=== PATIENT | male | born 1945 | race Caucasian/White ===

== ENCOUNTER 2016-11-24 13:24 | Inpatient (IN) | payer MEDICARE ==
[~2016-11-24] VITALS: Ht 182.9 cm; Wt 88.9 kg
[~2016-11-24 13:24] MED LIST: ASPI-770 PO; ASPI1CPM9 PO; CHOL400D3 PO; DIAZ10TA PO; DIAZ10TA4 PO; DIAZ5TAB4 PO; DOCU-30 PO; DOXY100T PO; ERGO500017 PO; ETOD400T PO; FURO-93 PO; LEVO500T33 PO; LEVO750T6 PO; METH750T2 PO; METR500T PO; MORP30TA81 PO; MULT-26 PO; NICO1PAT10 TD; ONDA8TAB12 PO; OXYC-302 PO; OXYC10TA32 PO; OXYC10TA6 PO; OXYC5CAP4 PO; POLY17PO5 PO; POTA20TA91 PO; POTASSIUM PO; PRED20TA PO; PREG150C PO; PREG300C PO; PREG75CA PO; QUET25TA PO; RIVA15TA PO; RIVA20TA PO; SENN-109 PO; SENN1TAB7 PO; SERT50TA5 PO; TAMS-11 PO; TRAZ100T15 PO; WARF7.5T PO
[2016-11-24] MEDS ORDERED: POTA20TA91 PO (13:42)
[2016-11-24] MEDS ORDERED: DIAZ10TA4 PO (13:42)
[2016-11-24] MEDS ORDERED: DIPHENHYDRAMINE 50 MG/ML, 1ML ONE (13:50)
[2016-11-24] MEDS ORDERED: NITROGLYCERIN SINGLE TAB 0.4 MG SL ONE (13:50)
[2016-11-24] MEDS: NITROGLYCERIN SINGLE TAB 0.4 MG SL PRN (13:52)
[2016-11-24] MEDS ORDERED: SODIUM CHLORIDE FLUSH 10ML SYR IVF ONE (14:00)
[2016-11-24] MEDS ORDERED: SODIUM CHLORIDE 0.9% 1,000ML IVBOLUS ONE (14:00)
[2016-11-24] MEDS ORDERED: DIPHENHYDRAMINE 50 MG/ML, 1ML IVPush ONE (14:00)
[2016-11-24 14:22] LABS: BLOOD UREA NITROGEN 17 mg/dL (7-18)
[2016-11-24 14:28] LABS: ASPARTATE AMINO TRANSFERASE 9 U/L (15-37)
[2016-11-24 14:30] LABS: IS PT STATUS REG ER OR PRE ER? YES
[2016-11-24] MEDS ORDERED: MORPHINE SULFATE 4 MG/ML, 1ML ONE ×2 (14:31→15:16)
[2016-11-24] MEDS: MORPHINE SULFATE 4 MG/ML, 1ML IVPush PRN ×2 (14:33→15:19)
[2016-11-24] MEDS ORDERED: METOCLOPRAMIDE 5 MG/ML, 2ML ONE (15:16)
[2016-11-24] MEDS ORDERED: morphine SULFATE 10 MG/ML, 1ML IVPush ONE (15:30)
[2016-11-24] MEDS ORDERED: METOCLOPRAMIDE 5 MG/ML, 2ML IVPush ONE (15:30)
[2016-11-24] MEDS ORDERED: ONDANSETRON 2MG/ML, 2ML IVPush PRN (16:30)
[2016-11-24] MEDS ORDERED: morphine SULFATE 10 MG/ML, 1ML IVPush PRN (16:30)
[2016-11-24] MEDS ORDERED: ACETAMINOPHEN 325 MG TABLET PO PRN (16:30)
[2016-11-24] MEDS ORDERED: TEMAZEPAM 15 MG CAPSULE PO PRN (16:30)
[2016-11-24] MEDS ORDERED: ENALAPRILAT 1.25 MG/ML, 2ML IVPush PRN (16:30)
[2016-11-24 17:27] VITALS: BP 114/83
[2016-11-24 17:30] VITALS: BP 114/83
[2016-11-24] MEDS: HYDROcodone/APAP 5/325 TABLET PO PRN (18:09)
[2016-11-24] MEDS: ENOXAPARIN 40 MG/0.4 ML SQ SCH (18:45)
[2016-11-24 20:06] VITALS: BP 94/63
[2016-11-24 20:27] VITALS: BP 97/61
[2016-11-24 22:24] LABS: IS PT STATUS REG ER OR PRE ER? NO
[2016-11-25] VITALS (8 sets, daily range): BP systolic 90–108; BP diastolic 55–71
[2016-11-25] MEDS: ASPIRIN 325 MG TABLET EC PO SCH (05:45)
[2016-11-25 06:20] LABS: IS PT STATUS REG ER OR PRE ER? NO
[2016-11-25] MEDS ORDERED: NITROGLYCERIN 0.4 MG BOTTLE (25 TABS) SL ONE (07:39)
[2016-11-25] MEDS: NITROGLYCERIN SINGLE TAB 0.4 MG SL PRN (07:51)
[2016-11-25] MEDS: HYDROcodone/APAP 5/325 TABLET PO PRN ×2 (07:55→21:01)
[2016-11-25] MEDS: FUROSEMIDE 20 MG TABLET PO SCH (07:59)
[2016-11-25] MEDS: POTASSIUM CHLORIDE 20 MEQ TAB.ER.PRT PO SCH (07:59)
[2016-11-25] MEDS: PREGABALIN 150 MG CAPSULE PO SCH ×2 (11:28→21:00)
[2016-11-25] MEDS ORDERED: DIAZEPAM 5 MG TABLET ONE (12:01)
[2016-11-25] MEDS: DIAZEPAM 10 MG TABLET PO SCH (12:04)
[2016-11-25] MEDS: OXYcodone/APAP 5/325MG TABLET PO PRN ×2 (13:21→17:40)
[2016-11-25] MEDS: ENOXAPARIN 40 MG/0.4 ML SQ SCH (17:39)
[2016-11-26] VITALS (8 sets, daily range): BP systolic 93–131; BP diastolic 55–72
[2016-11-26] MEDS: ASPIRIN 325 MG TABLET EC PO SCH (06:19)
[2016-11-26] MEDS ORDERED: REGADENOSON 0.4 MG/5 ML SYRINGE ONE (08:36)
[2016-11-26] MEDS ORDERED: DIAZEPAM 5 MG TABLET ONE (10:06)
[2016-11-26] MEDS: PREGABALIN 150 MG CAPSULE PO SCH ×2 (10:09→21:43)
[2016-11-26] MEDS: FUROSEMIDE 20 MG TABLET PO SCH (10:09)
[2016-11-26] MEDS: POTASSIUM CHLORIDE 20 MEQ TAB.ER.PRT PO SCH (10:09)
[2016-11-26] MEDS: DIAZEPAM 10 MG TABLET PO SCH (10:10)
[2016-11-26] MEDS: OXYcodone/APAP 5/325MG TABLET PO PRN ×2 (11:49→19:43)
[2016-11-26] MEDS ORDERED: DIAZEPAM 5 MG TABLET PO PRN (17:00)
[2016-11-26] MEDS: ENOXAPARIN 40 MG/0.4 ML SQ SCH (17:09)
[2016-11-26] MEDS: DIAZEPAM 5 MG TABLET PO PRN ×2 (17:09→23:16)
[2016-11-27 03:24] VITALS: BP 122/73
[2016-11-27] MEDS: OXYcodone/APAP 5/325MG TABLET PO PRN ×3 (03:25→12:38)
[2016-11-27] MEDS: ASPIRIN 325 MG TABLET EC PO SCH (05:45)
[2016-11-27 07:13] VITALS: BP 90/58
[2016-11-27] MEDS ORDERED: TRAM50TA2 PO (07:28)
[2016-11-27] MEDS ORDERED: SERT50TA5 PO (07:28)
[2016-11-27] MEDS ORDERED: DIAZ5TAB PO (07:28)
[2016-11-27] MEDS ORDERED: SIMV20TA PO (07:42)
[2016-11-27] MEDS ORDERED: ASPI-515 PO (07:42)
[2016-11-27] MEDS: PREGABALIN 150 MG CAPSULE PO SCH (08:36)
[2016-11-27] MEDS: POTASSIUM CHLORIDE 20 MEQ TAB.ER.PRT PO SCH (08:36)
[2016-11-27] MEDS: FUROSEMIDE 20 MG TABLET PO SCH (08:37)
[2016-11-27] MEDS ORDERED: DIAZEPAM 5 MG TABLET PO SCH (09:00)
[2016-11-27] MEDS ORDERED: SERTRALINE 50MG TABLET PO SCH (09:00)
[2016-11-27] MEDS: DIAZEPAM 5 MG TABLET PO PRN (13:41)
[2016-12-01] MEDS ORDERED: ERGOCALCIFEROL 50,000 UNIT CAPSULE PO SCH (09:00)
== END 2016-11-27 14:07 | DRG 880 ==
LOC: ED 15:11 → EDIP 15:21 → SUATTDRO 16:02 → 5SO 16:50
PROVIDERS: ATTEND Internal Medicine
DX: F41.9 Anxiety disorder, unspecified (principal); I50.32 Chronic diastolic (congestive) heart failure; E11.42 Type 2 diabetes mellitus with diabetic polyneuropathy; I25.10 Atherosclerotic heart disease of native coronary artery without angina pectoris; F43.10 Post-traumatic stress disorder, unspecified; F32.9 Major depressive disorder, single episode, unspecified; G89.29 Other chronic pain; G40.909 Epilepsy, unspecified, not intractable, without status epilepticus; I11.0 Hypertensive heart disease with heart failure; J44.9 Chronic obstructive pulmonary disease, unspecified; Z86.711 Personal history of pulmonary embolism; Z86.73 Personal history of transient ischemic attack (TIA), and cerebral infarction without residual deficits; Z87.891 Personal history of nicotine dependence; I25.2 Old myocardial infarction; Z90.49 Acquired absence of other specified parts of digestive tract; Z87.01 Personal history of pneumonia (recurrent)
CPT/HCPCS: 36415; 71010; 78452; 80053; 83735; 83880; 84484; 85025; 85379; 85610; 85730; 93005; 93017; 96361; 96374; 96375; 96376; J1650; J2785; A9502; C9898; J1200; J2270; J2765; J7030

== ENCOUNTER 2017-02-24 13:05 | Inpatient (IN) | payer MEDICARE ==
[~2017-02-24] VITALS: Ht 180.3 cm; Wt 96.3 kg
[~2017-02-24 13:05] MED LIST changes: +ASPI-515 PO; +DIAZ5TAB PO; +DOCU-131 PO; -DOCU-30 PO; -LEVO500T33 PO; +LEVO500T47 PO; -OXYC10TA32 PO; +OXYC10TA47 PO; +OXYC5CAP2 PO; -OXYC5CAP4 PO; -SENN-109 PO; +SENN-99 PO; +SIMV20TA PO; +TRAM50TA2 PO
[2017-02-24] MEDS ORDERED: ACETAMINOPHEN 325 MG TABLET PO ONE (13:30)
[2017-02-24] MEDS ORDERED: SODIUM CHLORIDE FLUSH 10ML SYR IVF ONE (13:30)
[2017-02-24] MEDS ORDERED: VANCOMYCIN 1,600 MG in SODIUM CHLORIDE 0.9% 250 ML IV ONE (13:30)
[2017-02-24] MEDS ORDERED: SODIUM CHLORIDE 0.9% 1,000ML IVBOLUS ONE ×2 (13:30→14:30)
[2017-02-24] MEDS ORDERED: PHARMACOKINETIC CONSULTATION MC ONE (13:30)
[2017-02-24] MEDS ORDERED: CEFTRIAXONE PMX 1GM/50ML 50 ML IV ONE (13:30)
[2017-02-24] MEDS ORDERED: VANCOMYCIN PER PHARMACY MC ONE (13:30)
[2017-02-24 13:43] LABS: HEMATOCRIT 43.8 % (39.2-51.8); HEMOGLOBIN 14.6 g/dL (13.7-18.0)
[2017-02-24] MEDS ORDERED: ACETAMINOPHEN 325 MG TABLET ONE (13:46)
[2017-02-24 13:50] LABS: BLOOD UREA NITROGEN 45 mg/dL (7-18)
[2017-02-24 13:53] LABS: ASPARTATE AMINO TRANSFERASE 220 U/L (15-37)
[2017-02-24 13:55] LABS: ABG COLLECTION SITE RIGHT BRACHIAL
[2017-02-24] MEDS ORDERED: DIVA250T4 PO (14:14)
[2017-02-24] MEDS ORDERED: CEFTRIAXONE PMX 1GM/50ML 50 ML ONE (14:24)
[2017-02-24] MEDS ORDERED: NALOXONE 0.4 MG/ML, 1ML ONE (14:41)
[2017-02-24] MEDS ORDERED: NALOXONE 0.4 MG/ML, 1ML IVPush ONE ×3 (15:00→15:30)
[2017-02-24 15:24] LABS: ABG COLLECTION SITE RIGHT BRACHIAL
[2017-02-24] MEDS: CEFTRIAXONE PMX 1GM/50ML 50 ML IV SCH (15:30)
[2017-02-24] MEDS ORDERED: ONDANSETRON 2MG/ML, 2ML IVPush ONE (15:30)
[2017-02-24] MEDS ORDERED: LORazepam 1MG TABLET PO PRN (15:30)
[2017-02-24] MEDS ORDERED: POLYETHYLENE GLYCOL 17 GM PACKET PO PRN (15:30)
[2017-02-24] MEDS ORDERED: TEMAZEPAM 15 MG CAPSULE PO PRN (15:30)
[2017-02-24] MEDS ORDERED: ACETAMINOPHEN 325 MG TABLET PO PRN (15:30)
[2017-02-24] MEDS: SODIUM CHLORIDE 0.9% 1,000 ML IV SCH (15:57)
[2017-02-24] MEDS: HEPARIN 5,000 UNITS/ML, 1ML SQ SCH (17:16)
[2017-02-24] MEDS: AZITHROMYCIN 500 MG in SODIUM CHLORIDE 0.9% 250 ML IV SCH (17:17)
[2017-02-24 18:30] LABS: ABG COLLECTION SITE LEFT BRACHIAL
[2017-02-24] MEDS ORDERED: SODIUM CHLORIDE 0.9%, 500ML IVBOLUS ONE (19:00)
[2017-02-24] MEDS: ALBUTEROL/IPRATROPIUM 2.5MG/0.5MG, 3 ML INLINE SCH (20:30)
[2017-02-24] MEDS ORDERED: LIDOCAINE-MPF 1%, 2ML ENDO PRN (20:30)
[2017-02-25] MEDS: HEPARIN 5,000 UNITS/ML, 1ML SQ SCH ×4 (00:15→22:07)
[2017-02-25] MEDS: FAMOTIDINE 20 MG TABLET PO SCH ×3 (00:17→22:06)
[2017-02-25] MEDS: SODIUM CHLORIDE 0.9% 1,000 ML IV SCH ×3 (00:18→22:06)
[2017-02-25] MEDS: NOREPINEPHRINE 4 MG in SODIUM CHLORIDE 0.9% 246 ML IV PRN ×3 (00:19→09:22)
[2017-02-25] MEDS: PROPOFOL 100 ML IV PRN ×3 (00:20→14:29)
[2017-02-25] MEDS: ALBUTEROL/IPRATROPIUM 2.5MG/0.5MG, 3 ML INLINE SCH ×7 (00:30→22:08)
[2017-02-25 04:10] VITALS: BP 83/51
[2017-02-25 04:10] LABS: ABG COLLECTION SITE RIGHT RADIAL; COLLATERAL CIRCULATION TESTING NORMAL
[2017-02-25 04:45] LABS: HEMATOCRIT 38.3 % (39.2-51.8); HEMOGLOBIN 12.7 g/dL (13.7-18.0); WHITE BLOOD COUNT 8.3 x10^3/uL (3.4-10)
[2017-02-25 05:25] LABS: ASPARTATE AMINO TRANSFERASE 421 U/L (15-37); BLOOD UREA NITROGEN 28 mg/dL (7-18)
[2017-02-25] MEDS: ASPIRIN 325 MG TABLET PO SCH (06:09)
[2017-02-25] MEDS: SENNA/DOCUSATE TABLET PO SCH (09:22)
[2017-02-25] MEDS: CEFTRIAXONE PMX 1GM/50ML 50 ML IV SCH (15:26)
[2017-02-25] MEDS ORDERED: NOREPINEPHRINE 8 MG in SODIUM CHLORIDE 0.9% 242 ML IV PRN (16:00)
[2017-02-25] MEDS ORDERED: SODIUM CHLORIDE 0.9% 500 ML IV ONE (16:30)
[2017-02-25] MEDS: AZITHROMYCIN 500 MG in SODIUM CHLORIDE 0.9% 250 ML IV SCH (17:11)
[2017-02-25] MEDS: HYDROCORTISONE 100 MG INJ. IVPush SCH (22:07)
[2017-02-25 23:23] VITALS: BP 92/48
[2017-02-26] MEDS: ALBUTEROL/IPRATROPIUM 2.5MG/0.5MG, 3 ML INLINE SCH ×2 (02:07→06:45)
[2017-02-26 04:27] LABS: ABG COLLECTION SITE LEFT BRACHIAL
[2017-02-26] MEDS: HYDROCORTISONE 100 MG INJ. IVPush SCH ×2 (05:59→14:21)
[2017-02-26] MEDS: SODIUM CHLORIDE 0.9% 1,000 ML IV SCH (06:00)
[2017-02-26] MEDS: ASPIRIN 325 MG TABLET PO SCH (06:00)
[2017-02-26 06:23] LABS: HEMATOCRIT 35.1 % (39.2-51.8); HEMOGLOBIN 11.8 g/dL (13.7-18.0); WHITE BLOOD COUNT 6.7 x10^3/uL (3.4-10)
[2017-02-26 06:38] LABS: ASPARTATE AMINO TRANSFERASE 263 U/L (15-37); BLOOD UREA NITROGEN 13 mg/dL (7-18)
[2017-02-26] MEDS: HEPARIN 5,000 UNITS/ML, 1ML SQ SCH ×3 (07:50→23:44)
[2017-02-26] MEDS: SENNA/DOCUSATE TABLET PO SCH (10:35)
[2017-02-26] MEDS: FAMOTIDINE 20 MG TABLET PO SCH ×2 (10:35→20:45)
[2017-02-26] MEDS: CEFTRIAXONE PMX 1GM/50ML 50 ML IV SCH (14:21)
[2017-02-26] MEDS ORDERED: SODIUM CHLORIDE 0.9% 1,000 ML IV SCH (16:00)
[2017-02-26] MEDS: AZITHROMYCIN 500 MG in SODIUM CHLORIDE 0.9% 250 ML IV SCH (16:05)
[2017-02-26] MEDS: OXYcodone IR 5MG TABLET PO PRN (20:43)
[2017-02-27] MEDS ORDERED: HYDROCORTISONE 100 MG INJ. IVPush SCH (02:00)
[2017-02-27] MEDS ORDERED: ALUMINUM/MAG/SIMETHICONE 30 ML UDC PO PRN (02:00)
[2017-02-27] MEDS: OXYcodone IR 5MG TABLET PO PRN ×5 (03:01→21:51)
[2017-02-27 04:13] VITALS: BP 106/49
[2017-02-27 04:18] LABS: HEMATOCRIT 35.2 % (39.2-51.8); HEMOGLOBIN 11.8 g/dL (13.7-18.0); WHITE BLOOD COUNT 7.3 x10^3/uL (3.4-10)
[2017-02-27 04:22] LABS: ABG COLLECTION SITE LEFT FEMORAL
[2017-02-27 04:26] LABS: ASPARTATE AMINO TRANSFERASE 181 U/L (15-37); BLOOD UREA NITROGEN 10 mg/dL (7-18)
[2017-02-27] MEDS: ASPIRIN 325 MG TABLET PO SCH (06:12)
[2017-02-27] MEDS ORDERED: POTASSIUM CHLORIDE 20 MEQ TAB.ER.PRT PO ONE (07:00)
[2017-02-27] MEDS: SENNA/DOCUSATE TABLET PO SCH ×2 (09:08→09:15)
[2017-02-27] MEDS: FAMOTIDINE 20 MG TABLET PO SCH ×2 (09:08→21:51)
[2017-02-27] MEDS: HEPARIN 5,000 UNITS/ML, 1ML SQ SCH ×2 (09:09→15:45)
[2017-02-27] MEDS: ONDANSETRON 2MG/ML, 2ML IVPush PRN (13:25)
[2017-02-27] MEDS: CEFTRIAXONE PMX 1GM/50ML 50 ML IV SCH (15:45)
[2017-02-27] MEDS: AZITHROMYCIN 500 MG in SODIUM CHLORIDE 0.9% 250 ML IV SCH (17:02)
[2017-02-27 20:00] VITALS: BP 117/65
[2017-02-28] MEDS: HEPARIN 5,000 UNITS/ML, 1ML SQ SCH ×3 (00:37→15:37)
[2017-02-28 02:55] VITALS: BP 114/63
[2017-02-28] MEDS: OXYcodone IR 5MG TABLET PO PRN ×3 (02:55→16:39)
[2017-02-28] MEDS: ONDANSETRON 2MG/ML, 2ML IVPush PRN ×2 (02:55→08:49)
[2017-02-28 04:51] LABS: ASPARTATE AMINO TRANSFERASE 96 U/L (15-37); BLOOD UREA NITROGEN 12 mg/dL (7-18)
[2017-02-28 04:57] LABS: HEMATOCRIT 35.4 % (39.2-51.8); HEMOGLOBIN 11.9 g/dL (13.7-18.0); WHITE BLOOD COUNT 5.1 x10^3/uL (3.4-10)
[2017-02-28] MEDS: ASPIRIN 325 MG TABLET PO SCH (06:13)
[2017-02-28 07:55] VITALS: BP 120/70
[2017-02-28] MEDS: SENNA/DOCUSATE TABLET PO SCH (09:00)
[2017-02-28] MEDS: FAMOTIDINE 20 MG TABLET PO SCH ×2 (09:01→20:31)
[2017-02-28 12:52] VITALS: BP 155/89
[2017-02-28] MEDS: CEFTRIAXONE PMX 1GM/50ML 50 ML IV SCH (15:37)
[2017-02-28 19:24] VITALS: BP 128/71
[2017-02-28] MEDS: AZITHROMYCIN 500 MG in SODIUM CHLORIDE 0.9% 250 ML IV SCH (20:31)
[2017-03-01] MEDS: HEPARIN 5,000 UNITS/ML, 1ML SQ SCH ×2 (01:01→08:37)
[2017-03-01] MEDS: OXYcodone IR 5MG TABLET PO PRN ×3 (01:08→14:54)
[2017-03-01 02:00] VITALS: BP 105/59
[2017-03-01 05:06] LABS: HEMATOCRIT 35.9 % (39.2-51.8); HEMOGLOBIN 11.9 g/dL (13.7-18.0); WHITE BLOOD COUNT 5.6 x10^3/uL (3.4-10)
[2017-03-01 05:23] LABS: BLOOD UREA NITROGEN 13 mg/dL (7-18)
[2017-03-01] MEDS: ASPIRIN 325 MG TABLET PO SCH (06:08)
[2017-03-01] MEDS ORDERED: POTASSIUM CHLORIDE 20 MEQ TAB.ER.PRT PO ONE (06:30)
[2017-03-01 07:32] VITALS: BP 118/64
[2017-03-01] MEDS: FAMOTIDINE 20 MG TABLET PO SCH (08:37)
[2017-03-01] MEDS: SENNA/DOCUSATE TABLET PO SCH (08:38)
[2017-03-01 14:00] VITALS: BP 148/77
[2017-03-01] MEDS ORDERED: AZIT250T89 PO (14:14)
[2017-03-01] MEDS ORDERED: CEFD300C37 PO (14:14)
== END 2017-03-01 15:41 | DRG 871 ==
LOC: ED 15:01 → EDIP 15:02 → ED 15:56 → CCU 16:38 → 4EST 02-28 10:52
PROVIDERS: ADMIT Internal Medicine; ATTEND Internal Medicine
PROC: 0BH17EZ Insertion of Endotracheal Airway into Trachea, Via Natural or Artificial Opening (ICD-10-PCS; principal; 2017-02-24)
PROC: 5A1945Z Respiratory Ventilation, 24-96 Consecutive Hours (ICD-10-PCS; 2017-02-24)
DX: A41.9 Sepsis, unspecified organism (principal); R65.21 Severe sepsis with septic shock; N17.0 Acute kidney failure with tubular necrosis; J96.02 Acute respiratory failure with hypercapnia; J96.01 Acute respiratory failure with hypoxia; I11.0 Hypertensive heart disease with heart failure; I50.32 Chronic diastolic (congestive) heart failure; J15.211 Pneumonia due to Methicillin susceptible Staphylococcus aureus; Z99.11 Dependence on respirator [ventilator] status; E87.2 Acidosis; E27.40 Unspecified adrenocortical insufficiency; J44.0 Chronic obstructive pulmonary disease with (acute) lower respiratory infection; E11.40 Type 2 diabetes mellitus with diabetic neuropathy, unspecified; E55.9 Vitamin D deficiency, unspecified; F10.10 Alcohol abuse, uncomplicated; F32.9 Major depressive disorder, single episode, unspecified; F41.9 Anxiety disorder, unspecified; G40.909 Epilepsy, unspecified, not intractable, without status epilepticus; G89.4 Chronic pain syndrome; I25.10 Atherosclerotic heart disease of native coronary artery without angina pectoris; I25.2 Old myocardial infarction; Z59.0 Homelessness; Z83.3 Family history of diabetes mellitus; Z86.711 Personal history of pulmonary embolism; Z86.718 Personal history of other venous thrombosis and embolism; Z86.73 Personal history of transient ischemic attack (TIA), and cerebral infarction without residual deficits; Z87.11 Personal history of peptic ulcer disease; Z98.1 Arthrodesis status; Z90.49 Acquired absence of other specified parts of digestive tract; Z90.89 Acquired absence of other organs; Z98.52 Vasectomy status; Z88.5 Allergy status to narcotic agent; Z88.6 Allergy status to analgesic agent; Z88.0 Allergy status to penicillin; Z88.8 Allergy status to other drugs, medicaments and biological substances; Z80.9 Family history of malignant neoplasm, unspecified; Z81.8 Family history of other mental and behavioral disorders
CPT/HCPCS: 36415; 36600; 71010; 76700; 80048; 80053; 80164; 81001; 82533; 82803; 82962; 83605; 83735; 83880; 84145; 84478; 85025; 85610; 85730; 87040; 87070; 87077; 87081; 87086; 87186; 87205; 87324; 93005; 94002; 94003; 94150; 94640; 94660; 96365; 96366; 96368; 96375; J0456; J0696; J1644; J2310; J2405; J2704; J3370; J7620; J1720; J7030; J7040; J7050

== ENCOUNTER 2017-05-27 20:49 | Emergency (ER) | payer MEDICARE ==
[~2017-05-27] VITALS: Ht 185.4 cm; Wt 82.0 kg
[~2017-05-27 20:49] MED LIST changes: +AZIT250T89 PO; +CEFD300C37 PO; +DIVA250T4 PO; +NICO-485 TD; -NICO1PAT10 TD
[2017-05-27 21:25] LABS: HEMATOCRIT 44.1 % (39.2-51.8); HEMOGLOBIN 14.7 g/dL (13.7-18.0); WHITE BLOOD COUNT 6.6 x10^3/uL (3.4-10)
[2017-05-27] MEDS ORDERED: ONDANSETRON 2MG/ML, 2ML IVPush ONE (21:30)
[2017-05-27] MEDS ORDERED: SODIUM CHLORIDE FLUSH 10ML SYR IVF ONE (21:30)
[2017-05-27] MEDS ORDERED: SODIUM CHLORIDE 0.9% 1,000ML IVBOLUS ONE (21:30)
[2017-05-27 21:39] LABS: ASPARTATE AMINO TRANSFERASE 13 U/L (15-37); BLOOD UREA NITROGEN 14 mg/dL (7-18)
[2017-05-27 21:45] LABS: IS PT STATUS REG ER OR PRE ER? YES
[2017-05-27] MEDS: MORPHINE SULFATE 4 MG/ML, 1ML IVPush PRN ×2 (21:45→22:26)
[2017-05-27] MEDS ORDERED: OMNIPAQUE 350 MG/ML, 100ML BOTTLE ONE (22:08)
[2017-05-27 23:44] VITALS: BP 101/54
== END 2017-05-27 23:46 | disposition home or self-care (01) ==
LOC: ED 21:25
DX: R07.89 Other chest pain (principal); J44.9 Chronic obstructive pulmonary disease, unspecified; I25.10 Atherosclerotic heart disease of native coronary artery without angina pectoris; F17.200 Nicotine dependence, unspecified, uncomplicated; I11.0 Hypertensive heart disease with heart failure; I50.9 Heart failure, unspecified; E11.9 Type 2 diabetes mellitus without complications; Z90.49 Acquired absence of other specified parts of digestive tract; Z79.82 Long term (current) use of aspirin; Z88.0 Allergy status to penicillin; Z98.1 Arthrodesis status
CPT/HCPCS: 36415; 71275; 74175; 80053; 83880; 84484; 85025; 85610; 85730; 93005; 96361; 96374; 96375; 96376; 99285; J2405; J7030; Q9967

== ENCOUNTER 2017-07-27 14:45 | Emergency (ER) | payer MEDICARE ==
[~2017-07-27] VITALS: Ht 182.9 cm; Wt 72.0 kg
[2017-07-27] MEDS ORDERED: SODIUM CHLORIDE 0.9% 1,000ML IVBOLUS ONE (15:00)
[2017-07-27] MEDS ORDERED: ONDANSETRON 2MG/ML, 2ML IVPush ONE ×2 (15:00→17:00)
[2017-07-27] MEDS ORDERED: SODIUM CHLORIDE FLUSH 10ML SYR IVF ONE (15:00)
[2017-07-27] MEDS ORDERED: MORP15TA PO (15:09)
[2017-07-27] MEDS ORDERED: ONDANSETRON 2MG/ML, 2ML ONE ×2 (15:16→16:54)
[2017-07-27] MEDS ORDERED: MORPHINE SULFATE 4 MG/ML, 1ML ONE ×2 (15:16→17:05)
[2017-07-27] MEDS: MORPHINE SULFATE 4 MG/ML, 1ML IVPush PRN ×2 (15:27→17:58)
[2017-07-27 15:28] LABS: BASOPHILS # (AUTO) 0.04 x10^3/uL (0-0.1); BASOPHILS % (AUTO) 1 % (0-1); EOSINOPHILS # (AUTO) 0.19 x10^3/uL (0-0.4); EOSINOPHILS % (AUTO) 3 % (1-7); LYMPHOCYTES # (AUTO) 2.27 x10^3/uL (1-3.4); LYMPHOCYTES % (AUTO) 31 % (22-44); MD NO; MEAN CORPUSCULAR HEMOGLOBIN 31.5 pg (27.5-34.5); MEAN CORPUSCULAR HGB CONC 33.4 g/dL (33.2-36.2); MEAN CORPUSCULAR VOLUME 94.3 fL (81-97); MEAN PLATELET VOLUME 7.8 fL (7.4-10.4); MONOCYTES % (AUTO) 10 % (2-9); NEUTROPHILS # (AUTO) 4.09 x10^3/uL (1.8-6.8); NEUTROPHILS % (AUTO) 56 % (42-75); PLATELET COUNT 229 x10^3/uL (130-400); RED CELL DISTRIBUTION WIDTH 14.1 % (9.4-14.8)
[2017-07-27 15:35] LABS: ALBUMIN 3.1 g/dL (3.4-5.0); ANION GAP 8 mmol/L (5-15); CALCIUM 8.3 mg/dL (8.5-10.1); CHLORIDE 109 mmol/L (98-107)
[2017-07-27 15:38] LABS: ALANINE AMINOTRANSFERASE 14 U/L (12-78); ALKALINE PHOSPHATASE 94 U/L (45-117); BILIRUBIN,TOTAL 0.4 mg/dL (0.2-1.0); CREATINE KINASE, TOTAL 30 U/L (39-308); CREATININE 0.81 mg/dL (0.7-1.3); TOTAL PROTEIN 6.7 g/dL (6.4-8.2)
[2017-07-27 15:40] LABS: MICROSCOPIC NOT IND
[2017-07-27 15:50] LABS: CULTURE INDICATED? NO
[2017-07-27] MEDS ORDERED: FAMOTIDINE 20 MG/2 ML ONE (16:55)
[2017-07-27] MEDS ORDERED: FAMOTIDINE 20 MG/2 ML IVP ONE (17:00)
[2017-07-27 18:00] VITALS: BP 110/64
== END 2017-07-27 19:20 | disposition home or self-care (01) ==
LOC: ED 18:40
DX: R19.7 Diarrhea, unspecified (principal); R11.2 Nausea with vomiting, unspecified; J44.9 Chronic obstructive pulmonary disease, unspecified; E11.9 Type 2 diabetes mellitus without complications; F43.10 Post-traumatic stress disorder, unspecified; I11.0 Hypertensive heart disease with heart failure; I50.9 Heart failure, unspecified; Z86.718 Personal history of other venous thrombosis and embolism; Z86.73 Personal history of transient ischemic attack (TIA), and cerebral infarction without residual deficits; I25.10 Atherosclerotic heart disease of native coronary artery without angina pectoris; Z90.49 Acquired absence of other specified parts of digestive tract; Z86.711 Personal history of pulmonary embolism
CPT/HCPCS: 36415; 80053; 81003; 82550; 83690; 85025; 96361; 96374; 96375; 96376; 99285; J2405; J7030; S0028

== ENCOUNTER 2017-08-02 23:49 | Observation (INO) | payer MEDICARE ==
[~2017-08-02] VITALS: Ht 182.9 cm; Wt 89.1 kg
[~2017-08-02 23:49] MED LIST changes: +MORP15TA PO
[2017-08-03 00:30] LABS: BASOPHILS # (AUTO) 0.07 x10^3/uL (0-0.1); BASOPHILS % (AUTO) 1 % (0-1); EOSINOPHILS % (AUTO) 2 % (1-7); LYMPHOCYTES # (AUTO) 3.51 x10^3/uL (1-3.4); LYMPHOCYTES % (AUTO) 40 % (22-44); MD NO; MEAN CORPUSCULAR HEMOGLOBIN 31.5 pg (27.5-34.5); MEAN CORPUSCULAR HGB CONC 33.6 g/dL (33.2-36.2); MEAN CORPUSCULAR VOLUME 93.8 fL (81-97); MEAN PLATELET VOLUME 7.9 fL (7.4-10.4); MONOCYTES % (AUTO) 8 % (2-9); NEUTROPHILS # (AUTO) 4.26 x10^3/uL (1.8-6.8); NEUTROPHILS % (AUTO) 49 % (42-75); PLATELET COUNT 223 x10^3/uL (130-400); RED BLOOD COUNT 4.65 x10^6/uL (4.38-5.82); RED CELL DISTRIBUTION WIDTH 15.1 % (9.4-14.8)
[2017-08-03] MEDS ORDERED: NITROGLYCERIN SINGLE TAB 0.4 MG SL PRN (00:30)
[2017-08-03] MEDS ORDERED: SODIUM CHLORIDE FLUSH 10ML SYR IVF ONE (00:30)
[2017-08-03] MEDS ORDERED: ASPIRIN 81 MG TABLET CHEW PO ONE (00:30)
[2017-08-03 00:42] LABS: ALANINE AMINOTRANSFERASE 20 U/L (12-78); ALBUMIN 3.2 g/dL (3.4-5.0); ANION GAP 8 mmol/L (5-15); CALCIUM 8.1 mg/dL (8.5-10.1); CHLORIDE 108 mmol/L (98-107); CREATININE 0.89 mg/dL (0.7-1.3)
[2017-08-03] MEDS ORDERED: NITROGLYCERIN SINGLE TAB 0.4 MG SL ONE (00:45)
[2017-08-03] MEDS ORDERED: ASPIRIN 81 MG TABLET CHEW ONE (00:45)
[2017-08-03 00:47] LABS: ALKALINE PHOSPHATASE 93 U/L (45-117); BILIRUBIN,TOTAL 0.3 mg/dL (0.2-1.0); TOTAL PROTEIN 6.8 g/dL (6.4-8.2); TROPONIN I < 0.015 ng/mL (0.000-0.045)
[2017-08-03 02:15] VITALS: BP 134/89
[2017-08-03] MEDS ORDERED: ENALAPRILAT 1.25 MG/ML, 2ML IVPush PRN (03:00)
[2017-08-03] MEDS ORDERED: BISACODYL 10 MG SUPP PR PRN (03:00)
[2017-08-03] MEDS ORDERED: POLYETHYLENE GLYCOL 17 GM PACKET PO PRN (03:00)
[2017-08-03] MEDS ORDERED: ONDANSETRON 2MG/ML, 2ML IVPush PRN (03:00)
[2017-08-03] MEDS ORDERED: morphine SULFATE 10 MG/ML, 1ML IVPush PRN (03:00)
[2017-08-03] MEDS ORDERED: hydrALAzine 20 MG/ML, 1ML IVPush PRN (03:00)
[2017-08-03] MEDS: OXYcodone/APAP 5/325MG TABLET PO PRN ×3 (03:32→11:05)
[2017-08-03] MEDS: NICOTINE 7 MG/24 HR PATCH.TD24 TD SCH (03:32)
[2017-08-03] MEDS: HEPARIN 5,000 UNITS/ML, 1ML SQ SCH ×3 (03:33→20:32)
[2017-08-03 03:40] LABS: CULTURE INDICATED? NO; MICROSCOPIC NOT IND
[2017-08-03] MEDS ORDERED: OMNIPAQUE 350 MG/ML, 100ML BOTTLE ONE (04:44)
[2017-08-03] MEDS ORDERED: LORazepam 1MG TABLET PO PRN (05:30)
[2017-08-03 07:33] LABS: HEMOGLOBIN A1C 5.9 % (4.2-6.3); TROPONIN I < 0.015 ng/mL (0.000-0.045)
[2017-08-03 07:40] LABS: FREE T4 (FREE THYROXINE) 1.09 ng/dL (0.76-1.46); THYROID STIMULATING HORMONE 1.9 mIU/L (0.358-3.740)
[2017-08-03 08:26] VITALS: BP 90/50
[2017-08-03] MEDS ORDERED: ASPI1CPM9 PO (08:28)
[2017-08-03] MEDS ORDERED: FURO40TA6 PO (08:28)
[2017-08-03] MEDS: POTASSIUM CHLORIDE 20 MEQ TAB.ER.PRT PO SCH (08:31)
[2017-08-03] MEDS: SENNA/DOCUSATE TABLET PO SCH (08:31)
[2017-08-03] MEDS: PREGABALIN 150 MG CAPSULE PO SCH ×2 (08:31→20:32)
[2017-08-03] MEDS: FLUTICASONE/VILANTEROL 100-25MCG/INH INH SCH (08:32)
[2017-08-03] MEDS ORDERED: FAMOTIDINE 20 MG/2 ML IVPush SCH (09:00)
[2017-08-03] MEDS ORDERED: morphine SULFATE 15 MG TAB.IR PO SCH (09:00)
[2017-08-03] MEDS: FAMOTIDINE 20 MG TABLET PO SCH ×2 (11:52→20:32)
[2017-08-03 12:50] LABS: TROPONIN I < 0.015 ng/mL (0.000-0.045)
[2017-08-03 12:54] VITALS: BP 93/60
[2017-08-03 13:27] VITALS: BP 106/69
[2017-08-03] MEDS: ACETAMINOPHEN 325 MG TABLET PO PRN (15:40)
[2017-08-03 20:39] VITALS: BP 107/69
[2017-08-04] MEDS: ACETAMINOPHEN 325 MG TABLET PO PRN (02:38)
[2017-08-04] MEDS: NICOTINE 7 MG/24 HR PATCH.TD24 TD SCH (02:40)
[2017-08-04 02:42] VITALS: BP 95/58
[2017-08-04] MEDS: HEPARIN 5,000 UNITS/ML, 1ML SQ SCH ×2 (04:45→13:19)
[2017-08-04 05:49] LABS: CHLORIDE 103 mmol/L (98-107)
[2017-08-04 05:50] LABS: BASOPHILS # (AUTO) 0.07 x10^3/uL (0-0.1); BASOPHILS % (AUTO) 1 % (0-1); EOSINOPHILS # (AUTO) 0.23 x10^3/uL (0-0.4); EOSINOPHILS % (AUTO) 3 % (1-7); LYMPHOCYTES # (AUTO) 3.74 x10^3/uL (1-3.4); LYMPHOCYTES % (AUTO) 50 % (22-44); MD NO; MEAN CORPUSCULAR HEMOGLOBIN 31.8 pg (27.5-34.5); MEAN CORPUSCULAR HGB CONC 33.7 g/dL (33.2-36.2); MEAN CORPUSCULAR VOLUME 94.3 fL (81-97); MONOCYTES # (AUTO) 0.64 x10^3/uL (0.2-0.8); MONOCYTES % (AUTO) 9 % (2-9); NEUTROPHILS # (AUTO) 2.83 x10^3/uL (1.8-6.8); NEUTROPHILS % (AUTO) 38 % (42-75); PLATELET COUNT 223 x10^3/uL (130-400); RED BLOOD COUNT 4.47 x10^6/uL (4.38-5.82); RED CELL DISTRIBUTION WIDTH 14.3 % (9.4-14.8)
[2017-08-04 06:02] LABS: ALANINE AMINOTRANSFERASE 18 U/L (12-78); ALBUMIN 3.2 g/dL (3.4-5.0); ALKALINE PHOSPHATASE 85 U/L (45-117); ANION GAP 8 mmol/L (5-15); BILIRUBIN,TOTAL 0.4 mg/dL (0.2-1.0); CALCIUM 8.2 mg/dL (8.5-10.1); CHOL/HDL RATIO 3.6; CHOLESTEROL, TOTAL 161 mg/dL (140-239); CREATININE 1.01 mg/dL (0.7-1.3); HDL CHOL % 28 % (26-37); HDL CHOLESTEROL (DIRECT) 45 mg/dL (40-60); LDL CHOLESTEROL,CALCULATED 80 mg/dL (54-169); LDL/HDL RATIO 1.8 (0.5-3.0); TOTAL PROTEIN 6.6 g/dL (6.4-8.2); TRIGLYCERIDES 178 mg/dL (50-200); VLDL CHOLESTEROL 36 mg/dL (0-25)
[2017-08-04 08:28] VITALS: BP 103/67
[2017-08-04] MEDS ORDERED: morphine SULFATE 15 MG TAB.IR PO SCH (09:00)
[2017-08-04] MEDS ORDERED: ASPIRIN/DIPYRIDAMOLE 25MG/200MG CAPSULE PO SCH (09:00)
[2017-08-04] MEDS: PREGABALIN 150 MG CAPSULE PO SCH (09:08)
[2017-08-04] MEDS: FAMOTIDINE 20 MG TABLET PO SCH (09:09)
[2017-08-04] MEDS: POTASSIUM CHLORIDE 20 MEQ TAB.ER.PRT PO SCH (09:09)
[2017-08-04] MEDS: FLUTICASONE/VILANTEROL 100-25MCG/INH INH SCH (09:10)
[2017-08-04] MEDS: SENNA/DOCUSATE TABLET PO SCH (09:12)
[2017-08-04 15:18] VITALS: BP 97/62
[2017-08-04] MEDS ORDERED: ASPI1CPM9 PO (16:18)
[2017-08-04] MEDS ORDERED: POTA20TA91 PO (16:18)
[2017-08-04] MEDS ORDERED: FURO40TA6 PO (16:18)
== END 2017-08-04 17:21 | disposition home or self-care (01) ==
LOC: ED 08-03 00:57 → INTOOBSV 08-03 01:17 → EDIP 08-03 01:17 → 5SO 08-03 02:13 → DCLOUNGE 08-04 17:19
PROVIDERS: ADMIT Internal Medicine; ATTEND Internal Medicine
DX: R07.89 Other chest pain (principal); E44.0 Moderate protein-calorie malnutrition; I50.32 Chronic diastolic (congestive) heart failure; E11.40 Type 2 diabetes mellitus with diabetic neuropathy, unspecified; G89.29 Other chronic pain; M79.606 Pain in leg, unspecified; M54.9 Dorsalgia, unspecified; F41.9 Anxiety disorder, unspecified; F32.9 Major depressive disorder, single episode, unspecified; F17.210 Nicotine dependence, cigarettes, uncomplicated; G40.909 Epilepsy, unspecified, not intractable, without status epilepticus; Z86.73 Personal history of transient ischemic attack (TIA), and cerebral infarction without residual deficits; Z86.718 Personal history of other venous thrombosis and embolism; Z86.711 Personal history of pulmonary embolism
CPT/HCPCS: 36415; 71045; 71275; 80053; 80061; 81003; 83036; 83735; 84439; 84443; 84484; 85025; 93005; 93306; 96372; 99285; G0378; J1644; Q9967

== ENCOUNTER 2017-09-04 16:50 | Inpatient (IN) | payer MEDICARE, OTHER ==
[~2017-09-04] VITALS: Ht 180.3 cm; Wt 89.8 kg
[~2017-09-04 16:50] MED LIST changes: +FURO40TA6 PO
[2017-09-04] MEDS ORDERED: METHOCARBAMOL 1,000 MG in DEXTROSE 5% 100 ML IV ONE (17:30)
[2017-09-04] MEDS ORDERED: SODIUM CHLORIDE FLUSH 10ML SYR IVF ONE (17:30)
[2017-09-04 17:58] LABS: ALANINE AMINOTRANSFERASE 14 U/L (12-78); ALBUMIN 3.3 g/dL (3.4-5.0); ANION GAP 9 mmol/L (5-15); CALCIUM 8.7 mg/dL (8.5-10.1); CHLORIDE 112 mmol/L (98-107); CREATININE 0.89 mg/dL (0.7-1.3)
[2017-09-04 17:59] LABS: BASOPHILS # (AUTO) 0.04 x10^3/uL (0-0.1); BASOPHILS % (AUTO) 1 % (0-1); EOSINOPHILS # (AUTO) 0.08 x10^3/uL (0-0.4); EOSINOPHILS % (AUTO) 1 % (1-7); LYMPHOCYTES # (AUTO) 2.29 x10^3/uL (1-3.4); LYMPHOCYTES % (AUTO) 25 % (22-44); MD NO; MEAN CORPUSCULAR VOLUME 93.7 fL (81-97); MEAN PLATELET VOLUME 7.6 fL (7.4-10.4); MONOCYTES # (AUTO) 0.79 x10^3/uL (0.2-0.8); MONOCYTES % (AUTO) 9 % (2-9); NEUTROPHILS # (AUTO) 6.04 x10^3/uL (1.8-6.8); NEUTROPHILS % (AUTO) 65 % (42-75); PLATELET COUNT 305 x10^3/uL (130-400); RED CELL DISTRIBUTION WIDTH 14.8 % (9.4-14.8)
[2017-09-04 18:00] LABS: ALKALINE PHOSPHATASE 82 U/L (45-117); BILIRUBIN,TOTAL 0.5 mg/dL (0.2-1.0); TOTAL PROTEIN 6.9 g/dL (6.4-8.2)
[2017-09-04] MEDS ORDERED: ONDANSETRON 2MG/ML, 2ML ONE (18:45)
[2017-09-04] MEDS ORDERED: MORPHINE SULFATE 4 MG/ML, 1ML ONE (18:45)
[2017-09-04 18:51] LABS: MICROSCOPIC AUTO
[2017-09-04 18:54] LABS: CULTURE INDICATED? NO
[2017-09-04] MEDS ORDERED: ONDANSETRON 2MG/ML, 2ML IVPush ONE (19:00)
[2017-09-04] MEDS ORDERED: MORPHINE SULFATE 4 MG/ML, 1ML IVPush PRN (19:00)
[2017-09-04] MEDS: NICOTINE 7 MG/24 HR PATCH.TD24 TD SCH (21:00)
[2017-09-04] MEDS ORDERED: ENALAPRILAT 1.25 MG/ML, 2ML IVPush PRN (21:00)
[2017-09-04] MEDS ORDERED: BISACODYL 10 MG SUPP PR PRN (21:00)
[2017-09-04] MEDS ORDERED: hydrALAzine 20 MG/ML, 1ML IVPush PRN (21:00)
[2017-09-04] MEDS ORDERED: ACETAMINOPHEN 325 MG TABLET PO PRN (21:00)
[2017-09-04] MEDS ORDERED: ONDANSETRON 2MG/ML, 2ML IVPush PRN (21:00)
[2017-09-04] MEDS ORDERED: morphine SULFATE 10 MG/ML, 1ML IVPush PRN (21:00)
[2017-09-04] MEDS ORDERED: POLYETHYLENE GLYCOL 17 GM PACKET PO PRN (21:00)
[2017-09-04 21:03] VITALS: BP 117/74
[2017-09-04 21:08] LABS: FREE T4 (FREE THYROXINE) 1.48 ng/dL (0.76-1.46); THYROID STIMULATING HORMONE 1.37 mIU/L (0.358-3.740)
[2017-09-04 21:12] LABS: HEMOGLOBIN A1C 5.5 % (4.2-6.3)
[2017-09-04] MEDS: PREGABALIN 100 MG CAPSULE PO SCH (22:18)
[2017-09-04] MEDS: FUROSEMIDE 20 MG TABLET PO SCH (22:18)
[2017-09-04] MEDS: GABAPENTIN 100 MG CAPSULE PO SCH (22:18)
[2017-09-04] MEDS: HEPARIN 5,000 UNITS/ML, 1ML SQ SCH (22:19)
[2017-09-04] MEDS: SODIUM CHLORIDE 0.9% 1,000 ML IV SCH (22:19)
[2017-09-05 02:17] VITALS: BP 89/57
[2017-09-05] MEDS: OXYcodone/APAP 5/325MG TABLET PO PRN ×4 (04:55→18:46)
[2017-09-05 05:04] LABS: BASOPHILS # (AUTO) 0.06 x10^3/uL (0-0.1); BASOPHILS % (AUTO) 1 % (0-1); EOSINOPHILS # (AUTO) 0.16 x10^3/uL (0-0.4); EOSINOPHILS % (AUTO) 2 % (1-7); LYMPHOCYTES # (AUTO) 2.32 x10^3/uL (1-3.4); LYMPHOCYTES % (AUTO) 30 % (22-44); MD NO; MEAN CORPUSCULAR HGB CONC 32.8 g/dL (33.2-36.2); MEAN CORPUSCULAR VOLUME 94.3 fL (81-97); MEAN PLATELET VOLUME 7.3 fL (7.4-10.4); MONOCYTES # (AUTO) 0.68 x10^3/uL (0.2-0.8); MONOCYTES % (AUTO) 9 % (2-9); NEUTROPHILS # (AUTO) 4.46 x10^3/uL (1.8-6.8); NEUTROPHILS % (AUTO) 58 % (42-75); PLATELET COUNT 262 x10^3/uL (130-400); RED BLOOD COUNT 4.36 x10^6/uL (4.38-5.82); RED CELL DISTRIBUTION WIDTH 14.5 % (9.4-14.8)
[2017-09-05 05:17] LABS: ALBUMIN 2.9 g/dL (3.4-5.0); ANION GAP 9 mmol/L (5-15); CALCIUM 8.3 mg/dL (8.5-10.1); CHLORIDE 108 mmol/L (98-107)
[2017-09-05 05:20] LABS: ALANINE AMINOTRANSFERASE 13 U/L (12-78); ALKALINE PHOSPHATASE 69 U/L (45-117); BILIRUBIN,TOTAL 0.6 mg/dL (0.2-1.0); CHOLESTEROL, TOTAL 116 mg/dL (140-239); CREATININE 0.92 mg/dL (0.7-1.3); HDL CHOLESTEROL (DIRECT) 37 mg/dL (40-60); TOTAL PROTEIN 6.4 g/dL (6.4-8.2); TRIGLYCERIDES 97 mg/dL (50-200); VLDL CHOLESTEROL 19 mg/dL (0-25)
[2017-09-05 05:21] LABS: CHOL/HDL RATIO 3.1; HDL CHOL % 32 % (26-37); LDL CHOLESTEROL,CALCULATED 60 mg/dL (54-169); LDL/HDL RATIO 1.6 (0.5-3.0)
[2017-09-05] MEDS: GABAPENTIN 100 MG CAPSULE PO SCH ×4 (05:51→19:45)
[2017-09-05] MEDS: HEPARIN 5,000 UNITS/ML, 1ML SQ SCH ×3 (05:52→21:56)
[2017-09-05 07:24] VITALS: BP 92/59
[2017-09-05] MEDS: ASPIRIN/DIPYRIDAMOLE 25MG/200MG CAPSULE PO SCH (08:23)
[2017-09-05] MEDS: PREGABALIN 100 MG CAPSULE PO SCH ×2 (08:24→19:45)
[2017-09-05] MEDS: SODIUM CHLORIDE 0.9% 1,000 ML IV SCH (08:24)
[2017-09-05] MEDS: FUROSEMIDE 20 MG TABLET PO SCH (08:24)
[2017-09-05] MEDS: SENNA/DOCUSATE TABLET PO SCH (08:24)
[2017-09-05] MEDS ORDERED: morphine SULFATE 15 MG TAB.IR PO SCH (09:00)
[2017-09-05] MEDS ORDERED: OMNIPAQUE 350 MG/ML, 100ML BOTTLE ONE (11:23)
[2017-09-05 14:09] VITALS: BP 96/41
[2017-09-05] MEDS: NICOTINE 7 MG/24 HR PATCH.TD24 TD SCH (19:45)
[2017-09-05 20:23] VITALS: BP 107/68
[2017-09-06] MEDS: OXYcodone/APAP 5/325MG TABLET PO PRN ×5 (01:00→20:18)
[2017-09-06 01:32] VITALS: BP 93/60
[2017-09-06] MEDS: GABAPENTIN 100 MG CAPSULE PO SCH ×4 (05:15→20:18)
[2017-09-06] MEDS: HEPARIN 5,000 UNITS/ML, 1ML SQ SCH ×3 (05:16→22:13)
[2017-09-06 05:25] LABS: BASOPHILS # (AUTO) 0.09 x10^3/uL (0-0.1); BASOPHILS % (AUTO) 1 % (0-1); EOSINOPHILS # (AUTO) 0.23 x10^3/uL (0-0.4); EOSINOPHILS % (AUTO) 3 % (1-7); LYMPHOCYTES # (AUTO) 2.76 x10^3/uL (1-3.4); LYMPHOCYTES % (AUTO) 32 % (22-44); MD NO; MEAN CORPUSCULAR HEMOGLOBIN 30.7 pg (27.5-34.5); MEAN CORPUSCULAR HGB CONC 32.8 g/dL (33.2-36.2); MEAN CORPUSCULAR VOLUME 93.6 fL (81-97); MEAN PLATELET VOLUME 7.5 fL (7.4-10.4); MONOCYTES # (AUTO) 0.74 x10^3/uL (0.2-0.8); MONOCYTES % (AUTO) 9 % (2-9); NEUTROPHILS % (AUTO) 56 % (42-75); PLATELET COUNT 235 x10^3/uL (130-400); RED BLOOD COUNT 4.23 x10^6/uL (4.38-5.82); RED CELL DISTRIBUTION WIDTH 14.4 % (9.4-14.8)
[2017-09-06 05:37] LABS: ANION GAP 6 mmol/L (5-15); CHLORIDE 106 mmol/L (98-107)
[2017-09-06 05:38] LABS: CREATININE 0.96 mg/dL (0.7-1.3)
[2017-09-06 07:20] VITALS: BP 97/59
[2017-09-06] MEDS: FUROSEMIDE 20 MG TABLET PO SCH (08:27)
[2017-09-06] MEDS: SENNA/DOCUSATE TABLET PO SCH (08:27)
[2017-09-06] MEDS: ASPIRIN/DIPYRIDAMOLE 25MG/200MG CAPSULE PO SCH (08:27)
[2017-09-06] MEDS: PREGABALIN 100 MG CAPSULE PO SCH ×2 (08:28→20:17)
[2017-09-06] MEDS ORDERED: DIAZ5TAB PO (10:55)
[2017-09-06 13:20] VITALS: BP 94/53
[2017-09-06] MEDS: NICOTINE 7 MG/24 HR PATCH.TD24 TD SCH (19:15)
[2017-09-06 19:59] VITALS: BP 101/66
[2017-09-06] MEDS: DIAZEPAM 5 MG TABLET PO PRN (20:18)
[2017-09-07 01:13] VITALS: BP 100/58
[2017-09-07] MEDS: OXYcodone/APAP 5/325MG TABLET PO PRN ×4 (02:40→11:42)
[2017-09-07] MEDS: HEPARIN 5,000 UNITS/ML, 1ML SQ SCH ×2 (05:27→14:11)
[2017-09-07] MEDS: GABAPENTIN 100 MG CAPSULE PO SCH ×3 (05:28→15:47)
[2017-09-07 08:09] VITALS: BP 90/50
[2017-09-07] MEDS ORDERED: GABA-826 PO (08:10)
[2017-09-07] MEDS ORDERED: OXYC1TAB7 PO (08:10)
[2017-09-07] MEDS ORDERED: NICO-485 TD (08:10)
[2017-09-07] MEDS ORDERED: HEPA50002 SQ (08:10)
[2017-09-07] MEDS: SENNA/DOCUSATE TABLET PO SCH (08:32)
[2017-09-07] MEDS: FUROSEMIDE 20 MG TABLET PO SCH (08:32)
[2017-09-07] MEDS: ASPIRIN/DIPYRIDAMOLE 25MG/200MG CAPSULE PO SCH (08:32)
[2017-09-07] MEDS: PREGABALIN 100 MG CAPSULE PO SCH (08:32)
[2017-09-07] MEDS: DIAZEPAM 5 MG TABLET PO PRN (11:42)
[2017-09-07 14:29] VITALS: BP 94/52
== END 2017-09-07 15:59 | DRG 551 ==
LOC: ED 17:36 → EDIP 19:46 → 4NOR 20:55
PROVIDERS: ADMIT Internal Medicine; ATTEND Internal Medicine
DX: M47.816 Spondylosis without myelopathy or radiculopathy, lumbar region (principal); I26.99 Other pulmonary embolism without acute cor pulmonale; J84.9 Interstitial pulmonary disease, unspecified; E44.0 Moderate protein-calorie malnutrition; I50.32 Chronic diastolic (congestive) heart failure; I11.0 Hypertensive heart disease with heart failure; E11.40 Type 2 diabetes mellitus with diabetic neuropathy, unspecified; F17.210 Nicotine dependence, cigarettes, uncomplicated; F32.9 Major depressive disorder, single episode, unspecified; F43.10 Post-traumatic stress disorder, unspecified; G40.909 Epilepsy, unspecified, not intractable, without status epilepticus; G89.29 Other chronic pain; I25.10 Atherosclerotic heart disease of native coronary artery without angina pectoris; I25.2 Old myocardial infarction; J44.9 Chronic obstructive pulmonary disease, unspecified; Z98.1 Arthrodesis status; Z91.19 Patient's noncompliance with other medical treatment and regimen; Z87.11 Personal history of peptic ulcer disease; Z86.73 Personal history of transient ischemic attack (TIA), and cerebral infarction without residual deficits; Z86.718 Personal history of other venous thrombosis and embolism; M51.36 Other intervertebral disc degeneration, lumbar region; Z95.820 Peripheral vascular angioplasty status with implants and grafts; Z90.49 Acquired absence of other specified parts of digestive tract; Z88.6 Allergy status to analgesic agent; Z88.0 Allergy status to penicillin; Z91.018 Allergy to other foods; Z68.27 Body mass index [BMI] 27.0-27.9, adult
CPT/HCPCS: 36415; 71045; 72110; 72132; 72170; 72220; 74177; 80048; 80053; 80061; 81001; 83036; 83605; 83735; 84439; 84443; 85025; 87040; 87070; 87205; 96365; 96375; J1644; J2405; Q9967; J2800; J7030

== ENCOUNTER 2018-03-20 18:43 | Emergency (ER) | payer MEDICARE ==
[~2018-03-20] VITALS: Ht 182.9 cm; Wt 102.0 kg
[~2018-03-20 18:43] MED LIST changes: -ASPI-770 PO; +ASPI81TA59 PO; +GABA-826 PO; +HEPA50002 SQ; +OXYC1TAB7 PO; -SENN1TAB7 PO; +SENN1TAB8 PO; +TRAZ-137 PO; -TRAZ100T15 PO
[2018-03-20] MEDS ORDERED: ONDANSETRON ODT 4 MG ONE (19:30)
[2018-03-20] MEDS ORDERED: ONDANSETRON ODT 4 MG PO ONE (19:30)
[2018-03-20 19:46] LABS: ALANINE AMINOTRANSFERASE 46 U/L (12-78); ALBUMIN 2.9 g/dL (3.4-5.0); ANION GAP 7 mmol/L (5-15); CALCIUM 8.1 mg/dL (8.5-10.1); CHLORIDE 113 mmol/L (98-107); CREATININE 0.84 mg/dL (0.7-1.3)
[2018-03-20 19:50] LABS: ALKALINE PHOSPHATASE 71 U/L (45-117); BASOPHILS # (AUTO) 0.03 x10^3/uL (0-0.1); BASOPHILS % (AUTO) 0 % (0-1); BILIRUBIN,TOTAL 0.4 mg/dL (0.2-1.0); EOSINOPHILS # (AUTO) 0.17 x10^3/uL (0-0.4); EOSINOPHILS % (AUTO) 3 % (1-7); LYMPHOCYTES # (AUTO) 1.71 x10^3/uL (1-3.4); LYMPHOCYTES % (AUTO) 26 % (22-44); MD NO; MEAN CORPUSCULAR HEMOGLOBIN 29.8 pg (27.5-34.5); MEAN CORPUSCULAR VOLUME 90.3 fL (81-97); MEAN PLATELET VOLUME 8.1 fL (7.4-10.4); MONOCYTES # (AUTO) 0.61 x10^3/uL (0.2-0.8); MONOCYTES % (AUTO) 9 % (2-9); NEUTROPHILS # (AUTO) 4.13 x10^3/uL (1.8-6.8); NEUTROPHILS % (AUTO) 62 % (42-75); PLATELET COUNT 209 x10^3/uL (130-400); RED BLOOD COUNT 4.21 x10^6/uL (4.38-5.82); RED CELL DISTRIBUTION WIDTH 21.5 % (9.4-14.8); TOTAL PROTEIN 6.3 g/dL (6.4-8.2); TROPONIN I < 0.015 ng/mL (0.000-0.045)
[2018-03-20 20:36] LABS: MICROSCOPIC AUTO
[2018-03-20 20:38] LABS: CULTURE INDICATED? NO
[2018-03-20 21:28] VITALS: BP 99/67
== END 2018-03-20 21:30 | disposition home or self-care (01) ==
LOC: MERGE 18:43 → ED 19:36
DX: A09 Infectious gastroenteritis and colitis, unspecified (principal); G89.29 Other chronic pain; I50.9 Heart failure, unspecified; Z90.49 Acquired absence of other specified parts of digestive tract
CPT/HCPCS: 36415; 71045; 80053; 81001; 83690; 83880; 84484; 85025; 93005; 99285; Q0162

== ENCOUNTER 2018-04-04 09:17 | Emergency (ER) | payer MEDICARE ==
[~2018-04-04] VITALS: Ht 180.3 cm; Wt 92.0 kg
[2018-04-04] MEDS ORDERED: HYDROmorphone 1 MG/ML, 1ML IM ONE (10:00)
[2018-04-04] MEDS ORDERED: HYDROmorphone 2 MG/ML, 1ML ONE (10:06)
[2018-04-04 11:00] VITALS: BP 112/64
[2018-04-04] MEDS ORDERED: ONDANSETRON ODT 4 MG ONE (11:11)
[2018-04-04] MEDS ORDERED: ONDANSETRON ODT 4 MG PO PRN (11:30)
== END 2018-04-04 11:36 | disposition home or self-care (01) ==
LOC: ED 09:20
DX: E11.40 Type 2 diabetes mellitus with diabetic neuropathy, unspecified (principal); I11.0 Hypertensive heart disease with heart failure; I50.9 Heart failure, unspecified; G89.29 Other chronic pain; J44.9 Chronic obstructive pulmonary disease, unspecified; I25.10 Atherosclerotic heart disease of native coronary artery without angina pectoris; I25.2 Old myocardial infarction; F17.200 Nicotine dependence, unspecified, uncomplicated; Z86.73 Personal history of transient ischemic attack (TIA), and cerebral infarction without residual deficits; Z90.49 Acquired absence of other specified parts of digestive tract; Z90.89 Acquired absence of other organs; Z88.0 Allergy status to penicillin; Z91.011 Allergy to milk products; Z88.6 Allergy status to analgesic agent; Z86.718 Personal history of other venous thrombosis and embolism
CPT/HCPCS: 93005; 93970; 96372; 99284; J1170; Q0162

== ENCOUNTER 2018-04-04 12:09 | Emergency (ER) | payer MEDICARE ==
[~2018-04-04] VITALS: Ht 182.9 cm; Wt 96.4 kg
[2018-04-04 13:08] LABS: PH, VENOUS 7.364 pH (7.320-7.420)
[2018-04-04 13:10] LABS: O2 FLOW ROOM AIR L/min
[2018-04-04 13:23] LABS: ALANINE AMINOTRANSFERASE 62 U/L (12-78); ALBUMIN 3.6 g/dL (3.4-5.0); ANION GAP 5 mmol/L (5-15); CALCIUM 8.8 mg/dL (8.5-10.1); CHLORIDE 108 mmol/L (98-107); CREATININE 0.91 mg/dL (0.7-1.3)
[2018-04-04 13:26] LABS: ALKALINE PHOSPHATASE 129 U/L (45-117); BILIRUBIN,TOTAL 0.9 mg/dL (0.2-1.0); TOTAL PROTEIN 7.8 g/dL (6.4-8.2)
[2018-04-04] MEDS ORDERED: MAALOX/HYOSCYAMINE/LIDOCAINE 45 ML BTL PO ONE (13:30)
[2018-04-04] MEDS ORDERED: MAALOX/HYOSCYAMINE/LIDOCAINE 45 ML BTL ONE (13:42)
[2018-04-04 13:44] LABS: MEAN CORPUSCULAR HEMOGLOBIN 30.4 pg (27.5-34.5); MEAN CORPUSCULAR HGB CONC 32.9 g/dL (33.2-36.2); MEAN CORPUSCULAR VOLUME 92.3 fL (81-97); MEAN PLATELET VOLUME 8.5 fL (7.4-10.4); PLATELET COUNT 212 x10^3/uL (130-400)
[2018-04-04 13:59] LABS: ACETONE, SERUM Negative (Negative)
[2018-04-04 14:21] LABS: BASOPHILS # (AUTO) 0.14 x10^3/uL (0-0.1); BASOPHILS % (AUTO) 1 % (0-1); EOSINOPHILS % (AUTO) 1 % (1-7); LYMPHOCYTES # (AUTO) 2.17 x10^3/uL (1-3.4); LYMPHOCYTES % (AUTO) 19 % (22-44); MONOCYTES # (AUTO) 0.74 x10^3/uL (0.2-0.8); MONOCYTES % (AUTO) 7 % (2-9); NEUTROPHILS # (AUTO) 8.25 x10^3/uL (1.8-6.8); NEUTROPHILS % (AUTO) 72 % (42-75)
[2018-04-04 14:22] LABS: MD SCAN
[2018-04-04 14:32] VITALS: BP 117/72
[2018-04-04 15:36] LABS: MICROSCOPIC INDICATED
[2018-04-04 15:40] LABS: CULTURE INDICATED? NO
== END 2018-04-04 16:15 | disposition home or self-care (01) ==
LOC: ED 12:12
DX: K85.90 Acute pancreatitis without necrosis or infection, unspecified (principal); I11.0 Hypertensive heart disease with heart failure; I50.9 Heart failure, unspecified; E11.9 Type 2 diabetes mellitus without complications; G89.29 Other chronic pain; J44.9 Chronic obstructive pulmonary disease, unspecified; I25.10 Atherosclerotic heart disease of native coronary artery without angina pectoris; F17.200 Nicotine dependence, unspecified, uncomplicated; Z86.73 Personal history of transient ischemic attack (TIA), and cerebral infarction without residual deficits; Z86.718 Personal history of other venous thrombosis and embolism; Z90.49 Acquired absence of other specified parts of digestive tract; Z90.89 Acquired absence of other organs; Z88.0 Allergy status to penicillin; Z88.6 Allergy status to analgesic agent; Z88.5 Allergy status to narcotic agent; Z91.011 Allergy to milk products
CPT/HCPCS: 36415; 80053; 81001; 82010; 82803; 83690; 85025; 93005; 99285

== ENCOUNTER 2018-04-29 09:52 | Inpatient (IN) | payer MEDICARE, OTHER ==
[~2018-04-29] VITALS: Ht 182.9 cm; Wt 97.5 kg
[2018-04-29 10:45] LABS: BASOPHILS # (AUTO) 0.07 x10^3/uL (0-0.1); BASOPHILS % (AUTO) 1 % (0-1); EOSINOPHILS # (AUTO) 0.13 x10^3/uL (0-0.4); EOSINOPHILS % (AUTO) 1 % (1-7); LYMPHOCYTES # (AUTO) 2.02 x10^3/uL (1-3.4); LYMPHOCYTES % (AUTO) 17 % (22-44); MD NO; MEAN CORPUSCULAR HGB CONC 33.3 g/dL (33.2-36.2); MEAN CORPUSCULAR VOLUME 93.1 fL (81-97); MEAN PLATELET VOLUME 8.6 fL (7.4-10.4); MONOCYTES % (AUTO) 8 % (2-9); NEUTROPHILS # (AUTO) 8.74 x10^3/uL (1.8-6.8); NEUTROPHILS % (AUTO) 74 % (42-75); PLATELET COUNT 139 x10^3/uL (130-400); RED BLOOD COUNT 5.68 x10^6/uL (4.38-5.82); RED CELL DISTRIBUTION WIDTH 19.8 % (9.4-14.8)
[2018-04-29 10:55] LABS: ALANINE AMINOTRANSFERASE 29 U/L (12-78); ANION GAP 8 mmol/L (5-15); CALCIUM 9.1 mg/dL (8.5-10.1); CHLORIDE 107 mmol/L (98-107); CREATININE 0.87 mg/dL (0.7-1.3)
[2018-04-29 10:57] LABS: ALKALINE PHOSPHATASE 100 U/L (45-117); TOTAL PROTEIN 8.4 g/dL (6.4-8.2)
[2018-04-29] MEDS ORDERED: MORPHINE SULFATE 4 MG/ML, 1ML ONE (11:47)
[2018-04-29] MEDS ORDERED: PREG75CA PO (11:58)
[2018-04-29] MEDS ORDERED: ATOR40TA78 PO (11:58)
[2018-04-29] MEDS ORDERED: morphine SULFATE 10 MG/ML, 1ML IVPush ONE (12:00)
[2018-04-29] MEDS ORDERED: LABETALOL 5MG/ML, 20ML IVPush PRN (12:30)
[2018-04-29] MEDS ORDERED: DIPHENHYDRAMINE 25 MG CAPSULE PO PRN (12:30)
[2018-04-29] MEDS ORDERED: BISACODYL 10 MG SUPP PR PRN (12:30)
[2018-04-29] MEDS ORDERED: ONDANSETRON ODT 4 MG PO PRN (12:30)
[2018-04-29] MEDS ORDERED: hydrALAzine 20 MG/ML, 1ML IVPush PRN (12:30)
[2018-04-29] MEDS ORDERED: DOCUSATE 100 MG CAPSULE PO PRN (12:30)
[2018-04-29] MEDS ORDERED: HEPARIN 5,000 UNITS/ML, 1ML SQ SCH (12:30)
[2018-04-29] MEDS ORDERED: POLYETHYLENE GLYCOL 17 GM PACKET PO PRN (12:30)
[2018-04-29] MEDS ORDERED: DEXTROSE 4 GM TAB.CHEW PO PRN (13:00)
[2018-04-29] MEDS ORDERED: DEXTROSE 50%, 50ML SYRINGE IVPush PRN (13:00)
[2018-04-29] MEDS ORDERED: GLUCAGON 1 MG IM PRN (13:00)
[2018-04-29 13:06] LABS: MICROSCOPIC INDICATED
[2018-04-29 13:25] LABS: CULTURE INDICATED? NO
[2018-04-29 13:33] VITALS: BP 94/60
[2018-04-29 13:38] VITALS: BP 94/60
[2018-04-29] MEDS: INSULIN LISPRO 100 UNITS/ML, PEN SQ-INSULIN SCH ×2 (14:13→21:00)
[2018-04-29 19:23] VITALS: BP 100/62
[2018-04-29] MEDS: DIAZEPAM 5 MG TABLET PO SCH (19:57)
[2018-04-29] MEDS: ATORVASTATIN 40 MG TABLET PO SCH (19:57)
[2018-04-29] MEDS: GABAPENTIN 300 MG CAPSULE PO SCH (19:57)
[2018-04-29] MEDS: SODIUM CHLORIDE FLUSH 10ML SYR IVF SCH (19:59)
[2018-04-30 02:03] VITALS: BP 107/69
[2018-04-30] MEDS: ACETAMINOPHEN 325 MG TABLET PO PRN (04:42)
[2018-04-30 05:01] LABS: ANION GAP 8 mmol/L (5-15); CALCIUM 7.6 mg/dL (8.5-10.1); CHLORIDE 106 mmol/L (98-107)
[2018-04-30 05:02] LABS: CREATININE 0.87 mg/dL (0.7-1.3)
[2018-04-30 06:36] LABS: MEAN CORPUSCULAR HEMOGLOBIN 30.7 pg (27.5-34.5); MEAN CORPUSCULAR HGB CONC 33.7 g/dL (33.2-36.2); MEAN CORPUSCULAR VOLUME 91.1 fL (81-97); MEAN PLATELET VOLUME 8.2 fL (7.4-10.4); PLATELET COUNT 114 x10^3/uL (130-400)
[2018-04-30 06:55] LABS: BASOPHILS # (AUTO) 0.08 x10^3/uL (0-0.1); BASOPHILS % (AUTO) 1 % (0-1); EOSINOPHILS # (AUTO) 0.23 x10^3/uL (0-0.4); EOSINOPHILS % (AUTO) 3 % (1-7); LYMPHOCYTES # (AUTO) 2.11 x10^3/uL (1-3.4); LYMPHOCYTES % (AUTO) 25 % (22-44); MD SCAN; MONOCYTES # (AUTO) 0.84 x10^3/uL (0.2-0.8); MONOCYTES % (AUTO) 10 % (2-9); NEUTROPHILS # (AUTO) 5.37 x10^3/uL (1.8-6.8); NEUTROPHILS % (AUTO) 62 % (42-75)
[2018-04-30] MEDS: INSULIN LISPRO 100 UNITS/ML, PEN SQ-INSULIN SCH ×4 (07:00→20:31)
[2018-04-30] MEDS: ASPIRIN/DIPYRIDAMOLE 25MG/200MG CAPSULE PO SCH (08:15)
[2018-04-30] MEDS: GABAPENTIN 300 MG CAPSULE PO SCH ×3 (08:15→20:31)
[2018-04-30] MEDS: SODIUM CHLORIDE FLUSH 10ML SYR IVF SCH ×2 (08:15→20:31)
[2018-04-30] MEDS: DIAZEPAM 5 MG TABLET PO SCH ×2 (08:15→20:31)
[2018-04-30] MEDS: PREGABALIN 75 MG CAPSULE PO SCH (08:15)
[2018-04-30 08:20] VITALS: BP 97/66
[2018-04-30] MEDS: METHOCARBAMOL 500 MG TABLET PO PRN ×2 (11:39→20:37)
[2018-04-30 13:37] VITALS: BP 100/64
[2018-04-30 19:40] VITALS: BP 95/61
[2018-04-30] MEDS: ATORVASTATIN 40 MG TABLET PO SCH (20:31)
[2018-05-01 01:48] VITALS: BP 104/66
[2018-05-01] MEDS: METHOCARBAMOL 500 MG TABLET PO PRN ×2 (06:40→18:16)
[2018-05-01] MEDS: INSULIN LISPRO 100 UNITS/ML, PEN SQ-INSULIN SCH ×4 (07:00→20:35)
[2018-05-01] MEDS: PREGABALIN 75 MG CAPSULE PO SCH (07:48)
[2018-05-01] MEDS: ASPIRIN/DIPYRIDAMOLE 25MG/200MG CAPSULE PO SCH (07:48)
[2018-05-01] MEDS: GABAPENTIN 300 MG CAPSULE PO SCH ×3 (07:48→20:29)
[2018-05-01] MEDS: DIAZEPAM 5 MG TABLET PO SCH ×2 (07:48→20:29)
[2018-05-01] MEDS: SODIUM CHLORIDE FLUSH 10ML SYR IVF SCH ×2 (07:49→20:29)
[2018-05-01 08:05] VITALS: BP 104/68
[2018-05-01 12:11] LABS: CLOSTRIDIUM DIFFICILE ANTIGEN NEGATIVE; CLOSTRIDIUM DIFFICILE TOXIN NEGATIVE (Negative); CRYPTOSPORIDIUM ANTIGEN Negative (Negative)
[2018-05-01 13:33] VITALS: BP 94/55
[2018-05-01] MEDS: ACETAMINOPHEN 325 MG TABLET PO PRN (18:16)
[2018-05-01 19:48] VITALS: BP 91/51
[2018-05-01] MEDS: ATORVASTATIN 40 MG TABLET PO SCH (20:29)
[2018-05-02 01:26] VITALS: BP 101/59
[2018-05-02] MEDS: INSULIN LISPRO 100 UNITS/ML, PEN SQ-INSULIN SCH ×2 (07:00→11:00)
[2018-05-02 08:15] VITALS: BP 118/69
[2018-05-02] MEDS: GABAPENTIN 300 MG CAPSULE PO SCH (08:27)
[2018-05-02] MEDS: DIAZEPAM 5 MG TABLET PO SCH (08:27)
[2018-05-02] MEDS: PREGABALIN 75 MG CAPSULE PO SCH (08:27)
[2018-05-02] MEDS: SODIUM CHLORIDE FLUSH 10ML SYR IVF SCH (08:27)
[2018-05-02] MEDS: ASPIRIN/DIPYRIDAMOLE 25MG/200MG CAPSULE PO SCH (08:27)
[2018-05-02 08:51] VITALS: BP 114/76
[2018-05-02] MEDS ORDERED: MAALOX/HYOSCYAMINE/LIDOCAINE 45 ML BTL PO ONE (09:00)
[2018-05-02 10:48] LABS: TROPONIN I < 0.015 ng/mL (0.000-0.045)
[2018-05-02 13:05] VITALS: BP 106/69
[2018-05-02] MEDS ORDERED: INSU100I11 SQ-INSULIN (13:08)
[2018-05-09] MEDS ORDERED: ENOX100S5 SQ ×2 (11:42→11:48)
[2018-05-09] MEDS ORDERED: WARF-36 PO (11:42)
== END 2018-05-02 15:10 | DRG 391 ==
LOC: ED 09:58 → EDIP 12:06 → 3NE 13:35
PROVIDERS: ADMIT Hospitalist; ATTEND Hospitalist
DX: K52.9 Noninfective gastroenteritis and colitis, unspecified (principal); R53.2 Functional quadriplegia; E44.0 Moderate protein-calorie malnutrition; I50.32 Chronic diastolic (congestive) heart failure; E11.40 Type 2 diabetes mellitus with diabetic neuropathy, unspecified; F17.210 Nicotine dependence, cigarettes, uncomplicated; G40.909 Epilepsy, unspecified, not intractable, without status epilepticus; I25.10 Atherosclerotic heart disease of native coronary artery without angina pectoris; Z87.01 Personal history of pneumonia (recurrent); J44.9 Chronic obstructive pulmonary disease, unspecified; Z59.0 Homelessness; Z86.711 Personal history of pulmonary embolism; Z86.718 Personal history of other venous thrombosis and embolism; Z86.73 Personal history of transient ischemic attack (TIA), and cerebral infarction without residual deficits; Z91.14 Patient's other noncompliance with medication regimen; Z87.11 Personal history of peptic ulcer disease; Z91.19 Patient's noncompliance with other medical treatment and regimen; Z98.1 Arthrodesis status; F41.9 Anxiety disorder, unspecified; R26.2 Difficulty in walking, not elsewhere classified; Z90.49 Acquired absence of other specified parts of digestive tract; Z68.29 Body mass index [BMI] 29.0-29.9, adult; Z88.6 Allergy status to analgesic agent; Z88.0 Allergy status to penicillin; Z88.8 Allergy status to other drugs, medicaments and biological substances; Z79.899 Other long term (current) drug therapy; Z23 Encounter for immunization
CPT/HCPCS: 36415; 71045; 80048; 80053; 81001; 82962; 83036; 83690; 83735; 84100; 84484; 85025; 87324; 87328; 87329; 89055; 90656; 93005; 96374; 99285; G0378; J2270; Q0163

== ENCOUNTER 2018-05-24 00:44 | Observation (INO) | payer MEDICARE ==
[~2018-05-24] VITALS: Ht 180.3 cm; Wt 100.0 kg
[~2018-05-24 00:44] MED LIST changes: +ATOR40TA78 PO; +ENOX100S5 SQ; +INSU100I11 SQ-INSULIN; +WARF-36 PO
[2018-05-24] MEDS ORDERED: ALBUTEROL/IPRATROPIUM 2.5MG/0.5MG, 3 ML NPPB ONE (01:00)
[2018-05-24] MEDS ORDERED: SODIUM CHLORIDE 0.9% 1,000ML IVBOLUS ONE ×2 (01:00→02:30)
[2018-05-24] MEDS ORDERED: methylPREDNISolone SOD SUCC 125 MG/2 ML IVP ONE (01:00)
[2018-05-24] MEDS ORDERED: SODIUM CHLORIDE FLUSH 10ML SYR IVF ONE (01:00)
[2018-05-24] MEDS ORDERED: methylPREDNISolone SOD SUCC 125 MG/2 ML ONE (01:07)
[2018-05-24 01:25] LABS: INTERNATIONAL NORMALIZED RATIO 1.54 (0.93-1.1); PROTHROMBIN TIME 16.1 Seconds (9.6-11.5)
[2018-05-24 01:27] LABS: ALANINE AMINOTRANSFERASE 33 U/L (12-78); ALBUMIN 3.3 g/dL (3.4-5.0); ANION GAP 15 mmol/L (5-15); CHLORIDE 111 mmol/L (98-107); CREATININE 1.48 mg/dL (0.7-1.3)
[2018-05-24 01:31] LABS: ALKALINE PHOSPHATASE 72 U/L (45-117); BILIRUBIN,TOTAL 0.4 mg/dL (0.2-1.0); TOTAL PROTEIN 6.7 g/dL (6.4-8.2)
[2018-05-24 01:42] LABS: MEAN CORPUSCULAR HEMOGLOBIN 31.7 pg (27.5-34.5); MEAN CORPUSCULAR HGB CONC 33.6 g/dL (33.2-36.2); MEAN CORPUSCULAR VOLUME 94.4 fL (81-97); MEAN PLATELET VOLUME 8.1 fL (7.4-10.4); PLATELET COUNT 215 x10^3/uL (130-400); RED BLOOD COUNT 4.36 x10^6/uL (4.38-5.82); RED CELL DISTRIBUTION WIDTH 15.9 % (9.4-14.8)
[2018-05-24 02:05] LABS: BASOPHILS # (AUTO) 0.05 x10^3/uL (0-0.1); BASOPHILS % (AUTO) 0 % (0-1); EOSINOPHILS # (AUTO) 0.03 x10^3/uL (0-0.4); EOSINOPHILS % (AUTO) 0 % (1-7); LYMPHOCYTES # (AUTO) 1.98 x10^3/uL (1-3.4); LYMPHOCYTES % (AUTO) 14 % (22-44); MD SCAN; MONOCYTES # (AUTO) 1.25 x10^3/uL (0.2-0.8); MONOCYTES % (AUTO) 9 % (2-9); NEUTROPHILS % (AUTO) 77 % (42-75)
[2018-05-24] MEDS ORDERED: OMNIPAQUE 350 MG/ML, 100ML BOTTLE ONE (02:08)
[2018-05-24] MEDS ORDERED: HYDR-3237 PO (03:24)
[2018-05-24] MEDS ORDERED: HYDROcodone/APAP 5/325 TABLET ONE (03:56)
[2018-05-24] MEDS ORDERED: HYDROcodone/APAP 5/325 TABLET PO ONE (04:00)
[2018-05-24] MEDS ORDERED: SODIUM CHLORIDE 0.9% 1,000 ML IV SCH (04:20)
[2018-05-24 04:26] VITALS: BP 112/71
[2018-05-24] MEDS ORDERED: NITROGLYCERIN 0.4 MG BOTTLE (25 TABS) SL PRN (04:30)
[2018-05-24] MEDS ORDERED: ONDANSETRON 2MG/ML, 2ML IVPush PRN (04:30)
[2018-05-24] MEDS ORDERED: ACETAMINOPHEN 325 MG TABLET PO PRN (04:30)
[2018-05-24] MEDS ORDERED: ONDANSETRON ODT 4 MG PO PRN (04:30)
[2018-05-24 05:00] VITALS: BP 112/71
[2018-05-24] MEDS ORDERED: ALBUTEROL SULFATE 2.5 MG/3 ML NPPB PRN (05:30)
[2018-05-24 06:39] LABS: TROPONIN I 0.033 ng/mL (0.000-0.045)
[2018-05-24 08:00] VITALS: BP 108/65
[2018-05-24] MEDS: PREGABALIN 75 MG CAPSULE PO SCH (08:25)
[2018-05-24] MEDS: HYDROcodone/APAP 5/325 TABLET PO PRN ×3 (08:25→18:06)
[2018-05-24] MEDS: DIAZEPAM 5 MG TABLET PO SCH ×2 (08:25→20:05)
[2018-05-24] MEDS ORDERED: REGADENOSON 0.4 MG/5 ML SYRINGE ONE (09:28)
[2018-05-24] MEDS: ALBUTEROL SULFATE 2.5 MG/3 ML NPPB SCH ×2 (11:05→20:03)
[2018-05-24 12:07] LABS: TROPONIN I 0.018 ng/mL (0.000-0.045)
[2018-05-24 13:55] VITALS: BP 130/57
[2018-05-24] MEDS: WARFARIN 2.5 MG TABLET PO-COUM SCH (18:06)
[2018-05-24] MEDS: ATORVASTATIN 40 MG TABLET PO SCH (20:05)
[2018-05-24 20:09] VITALS: BP 96/59
[2018-05-25 01:15] VITALS: BP 91/53
[2018-05-25] MEDS: HYDROcodone/APAP 5/325 TABLET PO PRN ×4 (06:06→21:47)
[2018-05-25 07:35] VITALS: BP 95/60
[2018-05-25] MEDS: ALBUTEROL SULFATE 2.5 MG/3 ML NPPB SCH ×2 (08:50→21:00)
[2018-05-25] MEDS: PREGABALIN 75 MG CAPSULE PO SCH (09:26)
[2018-05-25] MEDS: DIAZEPAM 5 MG TABLET PO SCH (09:26)
[2018-05-25 12:53] LABS: ALBUMIN 3.1 g/dL (3.4-5.0); ANION GAP 7 mmol/L (5-15); CALCIUM 8.2 mg/dL (8.5-10.1); CHLORIDE 113 mmol/L (98-107); CREATININE 0.92 mg/dL (0.7-1.3)
[2018-05-25 13:30] VITALS: BP 107/62
[2018-05-25] MEDS: INSULIN LISPRO 100 UNITS/ML, PEN SQ-INSULIN SCH ×2 (16:00→21:00)
[2018-05-25] MEDS ORDERED: FUROSEMIDE 20 MG/2 ML IV ONE (17:00)
[2018-05-25] MEDS: WARFARIN 2.5 MG TABLET PO-COUM SCH (18:00)
[2018-05-25 19:28] VITALS: BP 93/55
[2018-05-25 19:37] VITALS: BP 103/66
[2018-05-25] MEDS: APIXABAN 5 MG TABLET PO SCH (21:47)
[2018-05-25] MEDS: ATORVASTATIN 40 MG TABLET PO SCH (21:47)
[2018-05-26 01:02] VITALS: BP 121/73
[2018-05-26] MEDS: HYDROcodone/APAP 5/325 TABLET PO PRN ×3 (04:58→16:20)
[2018-05-26 06:53] LABS: BASOPHILS # (AUTO) 0.06 x10^3/uL (0-0.1); BASOPHILS % (AUTO) 1 % (0-1); EOSINOPHILS # (AUTO) 0.05 x10^3/uL (0-0.4); EOSINOPHILS % (AUTO) 1 % (1-7); LYMPHOCYTES % (AUTO) 29 % (22-44); MD NO; MEAN CORPUSCULAR HEMOGLOBIN 31.2 pg (27.5-34.5); MEAN CORPUSCULAR HGB CONC 32.6 g/dL (33.2-36.2); MEAN CORPUSCULAR VOLUME 95.7 fL (81-97); MEAN PLATELET VOLUME 8.2 fL (7.4-10.4); MONOCYTES # (AUTO) 0.87 x10^3/uL (0.2-0.8); MONOCYTES % (AUTO) 9 % (2-9); NEUTROPHILS # (AUTO) 5.97 x10^3/uL (1.8-6.8); NEUTROPHILS % (AUTO) 61 % (42-75); PLATELET COUNT 200 x10^3/uL (130-400); RED BLOOD COUNT 4.09 x10^6/uL (4.38-5.82)
[2018-05-26 06:56] LABS: ALBUMIN 2.7 g/dL (3.4-5.0); ANION GAP 6 mmol/L (5-15); CALCIUM 8.1 mg/dL (8.5-10.1); CHLORIDE 111 mmol/L (98-107); CREATININE 0.94 mg/dL (0.7-1.3)
[2018-05-26 07:00] VITALS: BP 100/60
[2018-05-26] MEDS: INSULIN LISPRO 100 UNITS/ML, PEN SQ-INSULIN SCH ×2 (07:00→11:00)
[2018-05-26] MEDS: APIXABAN 5 MG TABLET PO SCH (08:06)
[2018-05-26] MEDS: PREGABALIN 75 MG CAPSULE PO SCH (08:06)
[2018-05-26] MEDS: ALBUTEROL SULFATE 2.5 MG/3 ML NPPB SCH (08:43)
[2018-05-26] MEDS ORDERED: FURO20TA3 PO (10:29)
[2018-05-26] MEDS ORDERED: APIX5TAB PO (10:29)
[2018-05-26 13:35] VITALS: BP 112/71
[2018-05-27] MEDS ORDERED: FUROSEMIDE 20 MG TABLET PO SCH (09:00)
== END 2018-05-26 18:16 ==
LOC: ED 01:30 → EDIP 03:10 → INTOOBSV 03:10 → 5SO 04:07
PROVIDERS: ADMIT Hospitalist; ATTEND Hospitalist
DX: R07.89 Other chest pain (principal); E11.9 Type 2 diabetes mellitus without complications; I50.32 Chronic diastolic (congestive) heart failure; I11.0 Hypertensive heart disease with heart failure; I25.10 Atherosclerotic heart disease of native coronary artery without angina pectoris; I25.2 Old myocardial infarction; Z79.01 Long term (current) use of anticoagulants; Z79.4 Long term (current) use of insulin; Z86.711 Personal history of pulmonary embolism; Z86.73 Personal history of transient ischemic attack (TIA), and cerebral infarction without residual deficits; Z87.11 Personal history of peptic ulcer disease; F17.200 Nicotine dependence, unspecified, uncomplicated; J44.1 Chronic obstructive pulmonary disease with (acute) exacerbation; N17.9 Acute kidney failure, unspecified
CPT/HCPCS: 36415; 71045; 71275; 78452; 80048; 80053; 82040; 82962; 83735; 83880; 84100; 84484; 85025; 85610; 85730; 87040; 93005; 93017; 93970; 94640; 96374; 96375; 97162; 99284; A9502; C9898; G0378; G8978; G8979; G8980; J1940; J2785; J2930; J7030; J7512; J7613; J7620; Q9967

== ENCOUNTER 2018-09-29 14:12 | Emergency (ER) | payer MEDICARE ==
[~2018-09-29] VITALS: Ht 182.9 cm; Wt 95.4 kg
[~2018-09-29 14:12] MED LIST changes: +APIX5TAB PO; +ATOR20TA86 PO; +BACL-19 PO; +DIVA250T14 PO; +DIVA500T4 PO; +DULO30CA2 PO; +FURO20TA3 PO; +HYDR-3237 PO; +HYDR50TA13 PO; +MIRT30TA4 PO; +MORP-52 PO; +PREG25CA PO; -QUET25TA PO; +QUET25TA7 PO; +SENN-177 PO; -SENN1TAB8 PO; +SERT50TA28 PO; -SERT50TA5 PO; +pregabalin PO
--- NOTE | 2018-09-29 14:21 | NUR ---
Pt BIB [facility]- Pt c/o N/V/D/epigastric pain x2 days. Pt states hx of pancreatitis, states this feels similar. 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 Pt placed in gown, positioned for comfort in bed. Continuous oxygen and BP monitors applied, all safety measures observed.
[2018-09-29] MEDS ORDERED: ONDANSETRON 2MG/ML, 2ML ONE (14:30)
[2018-09-29] MEDS ORDERED: ONDANSETRON 2MG/ML, 2ML IVPush ONE (14:30)
[2018-09-29] MEDS ORDERED: SODIUM CHLORIDE 0.9% 1,000ML IVBOLUS ONE (14:30)
[2018-09-29] MEDS ORDERED: MORPHINE SULFATE 4 MG/ML, 1ML ONE ×2 (14:30→15:24)
[2018-09-29] MEDS: MORPHINE SULFATE 4 MG/ML, 1ML IVPush PRN ×2 (14:32→15:25)
--- NOTE | 2018-09-29 14:33 | NUR ---
Pt medicated per MAR, denies other needs.
[2018-09-29 14:50] LABS: BASOPHILS # (AUTO) 0.02 x10^3/uL (0-0.1); BASOPHILS % (AUTO) 0 % (0-1); EOSINOPHILS # (AUTO) 0.07 x10^3/uL (0-0.4); EOSINOPHILS % (AUTO) 1 % (1-7); LYMPHOCYTES # (AUTO) 1.59 x10^3/uL (1-3.4); LYMPHOCYTES % (AUTO) 15 % (22-44); MD NO; MEAN CORPUSCULAR HEMOGLOBIN 29.9 pg (27.5-34.5); MEAN CORPUSCULAR VOLUME 90.6 fL (81-97); MEAN PLATELET VOLUME 7.8 fL (7.4-10.4); MONOCYTES # (AUTO) 0.61 x10^3/uL (0.2-0.8); MONOCYTES % (AUTO) 6 % (2-9); NEUTROPHILS % (AUTO) 78 % (42-75); PLATELET COUNT 200 x10^3/uL (130-400); RED BLOOD COUNT 5.17 x10^6/uL (4.38-5.82); RED CELL DISTRIBUTION WIDTH 16.7 % (9.4-14.8)
[2018-09-29 14:58] LABS: ALANINE AMINOTRANSFERASE 34 U/L (12-78); ALBUMIN 3.3 g/dL (3.4-5.0); ANION GAP 7 mmol/L (5-15); CHLORIDE 110 mmol/L (98-107); CREATININE 0.96 mg/dL (0.7-1.3)
[2018-09-29 15:01] LABS: ALKALINE PHOSPHATASE 95 U/L (45-117); BILIRUBIN,TOTAL 1.1 mg/dL (0.2-1.0); TOTAL PROTEIN 6.6 g/dL (6.4-8.2)
--- NOTE | 2018-09-29 15:08 | NUR ---
Pt in CT at this time.
[2018-09-29 15:16] LABS: INTERNATIONAL NORMALIZED RATIO 1.06 (0.93-1.1); PROTHROMBIN TIME 11.1 Seconds (9.6-11.5)
[2018-09-29] MEDS ORDERED: OMNIPAQUE 350 MG/ML, 100ML BOTTLE ONE (15:21)
--- NOTE | 2018-09-29 15:25 | NUR ---
Pt back from CT, c/o continued pain. Pt medicated per MAR, denies other needs.
--- NOTE | 2018-09-29 15:52 | NUR ---
Dr. Carrasquillo at bedside to discuss POC with pt.
[2018-09-29] MEDS ORDERED: DICYCLOMINE 10 MG/ML, 2ML ONE (15:54)
[2018-09-29] MEDS ORDERED: DICYCLOMINE 10 MG/ML, 2ML IM ONE (16:00)
[2018-09-29] MEDS ORDERED: HYDROmorphone 1 MG/ML, 1ML INJ IV ONE (16:30)
--- NOTE | 2018-09-29 16:42 | NUR ---
Pt medicated for continued pain per MAR, denies other needs.
[2018-09-29 17:29] VITALS: BP 101/67
== END 2018-09-29 17:31 | disposition home or self-care (01) ==
LOC: ED 16:27
DX: R10.84 Generalized abdominal pain (principal); R11.2 Nausea with vomiting, unspecified; R19.7 Diarrhea, unspecified; I50.9 Heart failure, unspecified; E11.9 Type 2 diabetes mellitus without complications; G89.29 Other chronic pain; J44.9 Chronic obstructive pulmonary disease, unspecified; I25.10 Atherosclerotic heart disease of native coronary artery without angina pectoris; I25.2 Old myocardial infarction; F17.210 Nicotine dependence, cigarettes, uncomplicated; Z86.73 Personal history of transient ischemic attack (TIA), and cerebral infarction without residual deficits; Z86.718 Personal history of other venous thrombosis and embolism; Z90.49 Acquired absence of other specified parts of digestive tract; Z90.89 Acquired absence of other organs
CPT/HCPCS: 36415; 74177; 80053; 83690; 85025; 85610; 85730; 96361; 96372; 96374; 96375; 96376; 99284; J0500; J1170; J2405; J7030; Q9967

== ENCOUNTER 2018-09-29 20:29 | Inpatient (IN) | payer MEDICARE ==
[~2018-09-29] VITALS: Ht 182.9 cm; Wt 103.8 kg
--- NOTE | 2018-09-29 20:59 | NUR ---
PT WAS SEEN THIS AFTERNOON AROUND 1400, DIAGNOSED WITH PANCREATITIS. UPPER ABDOMINAL AND EPIGASTRIC PAIN DEVELOPED AGAIN TONIGHT. VOMITED ONCE AFTER EATING DINNER.
[2018-09-29 21:11] LABS: TROPONIN I < 0.015 ng/mL (0.000-0.045)
[2018-09-29] MEDS ORDERED: ALBUTEROL/IPRATROPIUM 2.5MG/0.5MG, 3 ML NPPB ONE (21:30)
--- NOTE | 2018-09-29 21:34 | NUR ---
PT MEDICATED WITH PREDNISONE PER EMAR
--- NOTE | 2018-09-29 22:23 | NUR ---
HOSPITALIST AT BEDSIDE. IV STARTED. PT TOLERATED WELL. UPDATED ON POC.
[2018-09-29] MEDS ORDERED: morphine SULFATE 10 MG/ML, 1ML IVPush PRN (22:30)
[2018-09-29] MEDS ORDERED: hydrALAzine 20 MG/ML, 1ML IVPush PRN (22:30)
[2018-09-29 22:44] LABS: ALANINE AMINOTRANSFERASE 72 U/L (12-78); ALBUMIN 3.6 g/dL (3.4-5.0); ANION GAP 11 mmol/L (5-15); CALCIUM 8.3 mg/dL (8.5-10.1); CHLORIDE 109 mmol/L (98-107); CREATININE 1.39 mg/dL (0.7-1.3)
[2018-09-29 22:50] LABS: ALKALINE PHOSPHATASE 171 U/L (45-117); BASOPHILS # (AUTO) 0.07 x10^3/uL (0-0.1); BASOPHILS % (AUTO) 1 % (0-1); EOSINOPHILS # (AUTO) 0.12 x10^3/uL (0-0.4); EOSINOPHILS % (AUTO) 1 % (1-7); LYMPHOCYTES % (AUTO) 14 % (22-44); MD NO; MEAN CORPUSCULAR HEMOGLOBIN 30.5 pg (27.5-34.5); MEAN CORPUSCULAR HGB CONC 33.1 g/dL (33.2-36.2); MEAN CORPUSCULAR VOLUME 91.9 fL (81-97); MEAN PLATELET VOLUME 8.2 fL (7.4-10.4); MONOCYTES # (AUTO) 0.78 x10^3/uL (0.2-0.8); MONOCYTES % (AUTO) 6 % (2-9); NEUTROPHILS % (AUTO) 79 % (42-75); PLATELET COUNT 223 x10^3/uL (130-400); RED BLOOD COUNT 5.26 x10^6/uL (4.38-5.82); RED CELL DISTRIBUTION WIDTH 16.8 % (9.4-14.8); TOTAL PROTEIN 7.1 g/dL (6.4-8.2)
[2018-09-29] MEDS ORDERED: ONDANSETRON 2MG/ML, 2ML ONE (22:52)
[2018-09-29] MEDS ORDERED: MORPHINE SULFATE 4 MG/ML, 1ML ONE (22:53)
--- NOTE | 2018-09-29 22:56 | NUR ---
REPORT GIVEN TO AUBREY VILLA. PT [facility] FOR [facility] AND NAUSEA.
[2018-09-29] MEDS: ONDANSETRON 2MG/ML, 2ML IVPush PRN (22:57)
[2018-09-29 23:15] VITALS: BP 110/72
[2018-09-30] MEDS: HYDROmorphone 2 MG/ML, 1ML IV PRN ×5 (00:58→20:28)
[2018-09-30] MEDS: SODIUM CHLORIDE 0.9% 1,000 ML IV SCH ×2 (00:59→20:28)
[2018-09-30 03:48] VITALS: BP 95/61
[2018-09-30 05:16] LABS: ALBUMIN 3.2 g/dL (3.4-5.0); ANION GAP 6 mmol/L (5-15); CALCIUM 8.1 mg/dL (8.5-10.1); CHLORIDE 110 mmol/L (98-107)
[2018-09-30 05:19] LABS: ALANINE AMINOTRANSFERASE 61 U/L (12-78); ALKALINE PHOSPHATASE 150 U/L (45-117); CREATININE 0.92 mg/dL (0.7-1.3); TOTAL PROTEIN 6.3 g/dL (6.4-8.2)
[2018-09-30 05:24] LABS: BASOPHILS # (AUTO) 0.01 x10^3/uL (0-0.1); BASOPHILS % (AUTO) 0 % (0-1); EOSINOPHILS % (AUTO) 0 % (1-7); LYMPHOCYTES # (AUTO) 0.79 x10^3/uL (1-3.4); LYMPHOCYTES % (AUTO) 9 % (22-44); MD NO; MEAN CORPUSCULAR HEMOGLOBIN 29.6 pg (27.5-34.5); MEAN CORPUSCULAR HGB CONC 32.6 g/dL (33.2-36.2); MEAN CORPUSCULAR VOLUME 90.8 fL (81-97); MONOCYTES # (AUTO) 0.08 x10^3/uL (0.2-0.8); MONOCYTES % (AUTO) 1 % (2-9); NEUTROPHILS # (AUTO) 7.92 x10^3/uL (1.8-6.8); NEUTROPHILS % (AUTO) 90 % (42-75); PLATELET COUNT 202 x10^3/uL (130-400); RED BLOOD COUNT 4.86 x10^6/uL (4.38-5.82); RED CELL DISTRIBUTION WIDTH 17.3 % (9.4-14.8)
[2018-09-30] MEDS ORDERED: PANTOPRAZOLE 40 MG IV IVPush SCH (07:30)
[2018-09-30 08:02] VITALS: BP 95/61
[2018-09-30] MEDS ORDERED: GABAPENTIN 100 MG CAPSULE PO SCH (09:00)
[2018-09-30] MEDS: DIVALPROEX 500 MG TAB.ER.24H PO SCH (09:20)
[2018-09-30] MEDS: DIAZEPAM 5 MG TABLET PO SCH ×2 (09:20→20:28)
[2018-09-30] MEDS: APIXABAN 5 MG TABLET PO SCH ×2 (09:21→20:28)
[2018-09-30] MEDS: GABAPENTIN 300 MG CAPSULE PO SCH ×3 (09:21→20:29)
[2018-09-30 14:38] VITALS: BP 93/65
[2018-09-30 19:58] VITALS: BP 99/65
[2018-09-30] MEDS: ATORVASTATIN 40 MG TABLET PO SCH (20:28)
[2018-10-01 01:31] VITALS: BP 79/52
[2018-10-01 01:41] VITALS: BP 79/56
[2018-10-01 01:58] VITALS: BP 86/60
[2018-10-01] MEDS: PANTOPROZOLE 40MG TABLET PO SCH (05:23)
[2018-10-01] MEDS: HYDROmorphone 2 MG/ML, 1ML IV PRN ×3 (06:17→18:46)
[2018-10-01 06:30] LABS: ANION GAP 7 mmol/L (5-15); CALCIUM 7.5 mg/dL (8.5-10.1); CHLORIDE 112 mmol/L (98-107); CREATININE 0.71 mg/dL (0.7-1.3)
[2018-10-01 08:54] VITALS: BP 93/58
[2018-10-01] MEDS: GABAPENTIN 300 MG CAPSULE PO SCH ×3 (08:56→21:08)
[2018-10-01] MEDS: DIAZEPAM 5 MG TABLET PO SCH ×2 (08:56→21:08)
[2018-10-01] MEDS: APIXABAN 5 MG TABLET PO SCH ×2 (08:56→21:08)
[2018-10-01] MEDS: DIVALPROEX 500 MG TAB.ER.24H PO SCH (08:56)
[2018-10-01] MEDS: ONDANSETRON 2MG/ML, 2ML IVPush PRN ×2 (10:39→18:46)
[2018-10-01] MEDS: SODIUM CHLORIDE 0.9% 1,000 ML IV SCH ×2 (14:09→21:08)
[2018-10-01 14:10] VITALS: BP 98/52
[2018-10-01 18:45] VITALS: BP 104/68
[2018-10-01] MEDS: ATORVASTATIN 40 MG TABLET PO SCH (21:08)
[2018-10-02] MEDS: HYDROmorphone 2 MG/ML, 1ML IV PRN ×4 (00:01→14:20)
[2018-10-02 00:50] VITALS: BP_SYST 131; BP_SYST 96; BP_DIAS 64; BP_DIAS 72
[2018-10-02] MEDS: SODIUM CHLORIDE 0.9% 1,000 ML IV SCH ×2 (04:18→13:33)
[2018-10-02] MEDS: PANTOPROZOLE 40MG TABLET PO SCH (05:53)
[2018-10-02 07:09] VITALS: BP 100/65
[2018-10-02] MEDS: DIAZEPAM 5 MG TABLET PO SCH (08:56)
[2018-10-02] MEDS: GABAPENTIN 300 MG CAPSULE PO SCH (08:56)
[2018-10-02] MEDS: APIXABAN 5 MG TABLET PO SCH (08:57)
[2018-10-02] MEDS: DIVALPROEX 500 MG TAB.ER.24H PO SCH (08:57)
[2018-10-02 12:45] VITALS: BP 89/51
[2018-10-02 14:11] VITALS: BP 93/66
[2018-10-03] MEDS ORDERED: OXYC20TA2 PO (17:48)
[2018-10-15] MEDS ORDERED: FLUD0.1T PO (10:15)
== END 2018-10-02 16:10 | disposition home or self-care (01) | DRG 438 ==
LOC: ED 21:44 → EDIP 22:04 → 4NOR 23:11 → DCLOUNGE 10-02 16:02
PROVIDERS: ADMIT Family Medicine; ATTEND Family Medicine
DX: K85.00 Idiopathic acute pancreatitis without necrosis or infection (principal); N17.0 Acute kidney failure with tubular necrosis; I50.32 Chronic diastolic (congestive) heart failure; J44.1 Chronic obstructive pulmonary disease with (acute) exacerbation; Z88.6 Allergy status to analgesic agent; Z88.0 Allergy status to penicillin; Z88.8 Allergy status to other drugs, medicaments and biological substances; E11.9 Type 2 diabetes mellitus without complications; E78.5 Hyperlipidemia, unspecified; E86.0 Dehydration; F17.200 Nicotine dependence, unspecified, uncomplicated; F43.10 Post-traumatic stress disorder, unspecified; I11.0 Hypertensive heart disease with heart failure; I25.10 Atherosclerotic heart disease of native coronary artery without angina pectoris; I25.2 Old myocardial infarction; I27.20 Pulmonary hypertension, unspecified; Z79.01 Long term (current) use of anticoagulants; Z86.711 Personal history of pulmonary embolism; Z86.718 Personal history of other venous thrombosis and embolism; Z86.73 Personal history of transient ischemic attack (TIA), and cerebral infarction without residual deficits; Z87.11 Personal history of peptic ulcer disease; K86.1 Other chronic pancreatitis
CPT/HCPCS: 36415; 71045; 74177; 80048; 80053; 82962; 83690; 84484; 85025; 85610; 85730; 93005; 96361; 96372; 96374; 96375; 96376; 99284; G0378; J1170; J2405; Q9967; C9113; J0500; J2270; J7030; J7512

== ENCOUNTER 2018-10-03 14:58 | Inpatient (IN) | payer MEDICARE ==
[~2018-10-03] VITALS: Ht 172.7 cm; Wt 100.3 kg
[2018-10-03] MEDS ORDERED: OMNIPAQUE 350 MG/ML, 100ML BOTTLE ONE (16:03)
[2018-10-03 16:14] LABS: BASOPHILS # (AUTO) 0.02 x10^3/uL (0-0.1); BASOPHILS % (AUTO) 0 % (0-1); EOSINOPHILS # (AUTO) 0.13 x10^3/uL (0-0.4); EOSINOPHILS % (AUTO) 2 % (1-7); LYMPHOCYTES # (AUTO) 1.75 x10^3/uL (1-3.4); LYMPHOCYTES % (AUTO) 25 % (22-44); MD NO; MEAN CORPUSCULAR HEMOGLOBIN 30.3 pg (27.5-34.5); MEAN CORPUSCULAR HGB CONC 33.3 g/dL (33.2-36.2); MEAN CORPUSCULAR VOLUME 91.1 fL (81-97); MEAN PLATELET VOLUME 8.5 fL (7.4-10.4); MONOCYTES # (AUTO) 0.38 x10^3/uL (0.2-0.8); MONOCYTES % (AUTO) 6 % (2-9); NEUTROPHILS # (AUTO) 4.67 x10^3/uL (1.8-6.8); NEUTROPHILS % (AUTO) 67 % (42-75); PLATELET COUNT 199 x10^3/uL (130-400); RED CELL DISTRIBUTION WIDTH 18.3 % (9.4-14.8)
[2018-10-03 16:22] LABS: PROTHROMBIN TIME 10.5 Seconds (9.6-11.5)
[2018-10-03 16:23] LABS: ALANINE AMINOTRANSFERASE 33 U/L (12-78); ANION GAP 4 mmol/L (5-15); CALCIUM 8.2 mg/dL (8.5-10.1); CHLORIDE 112 mmol/L (98-107)
[2018-10-03 16:28] LABS: ALKALINE PHOSPHATASE 119 U/L (45-117); BILIRUBIN,TOTAL 0.3 mg/dL (0.2-1.0); TOTAL PROTEIN 6.1 g/dL (6.4-8.2); TROPONIN I < 0.015 ng/mL (0.000-0.045)
[2018-10-03] MEDS ORDERED: OXYC20TA2 PO (17:48)
[2018-10-03 17:50] VITALS: BP 120/76
[2018-10-03] MEDS ORDERED: PROMETHAZINE 25 MG/ML, 1ML IM PRN (18:30)
[2018-10-03] MEDS ORDERED: BISACODYL 10 MG SUPP PR PRN (18:30)
[2018-10-03] MEDS ORDERED: POLYETHYLENE GLYCOL 17 GM PACKET PO PRN (18:30)
[2018-10-03] MEDS ORDERED: DOCUSATE 100 MG CAPSULE PO PRN (18:30)
[2018-10-03 19:28] LABS: HCT (SEDRATE) 43.1 % (39.2-51.8)
[2018-10-03 20:03] LABS: C-REACTIVE PROTEIN, QUANT 1.1 mg/dL (0.02-0.49); THYROID STIMULATING HORMONE 1.22 mIU/L (0.358-3.740)
[2018-10-03] MEDS: OXYcodone IR 5MG TABLET PO PRN (20:05)
[2018-10-03] MEDS: APIXABAN 5 MG TABLET PO SCH (20:05)
[2018-10-03] MEDS: GABAPENTIN 100 MG CAPSULE PO SCH (20:05)
[2018-10-03] MEDS: ATORVASTATIN 40 MG TABLET PO SCH (20:05)
[2018-10-03 20:19] LABS: HEMOGLOBIN A1C 5.6 % (4.2-6.3)
[2018-10-03 20:45] VITALS: BP 107/68
[2018-10-03 21:03] LABS: AMPHETAMINE SCREEN, URINE Negative (Negative); BARBITURATE SCREEN, URINE Negative (Negative); BENZODIAZEPINE SCREEN, URINE Positive (Negative); CANNABINOID SCREEN, URINE Negative (Negative); COCAINE SCREEN, URINE Negative (Negative); METHADONE SCREEN, URINE Negative (Negative); OPIATE SCREEN, URINE Negative (Negative)
[2018-10-04] VITALS (8 sets, daily range): BP systolic 94–106; BP diastolic 55–68
[2018-10-04 03:52] LABS: TROPONIN I < 0.015 ng/mL (0.000-0.045)
[2018-10-04] MEDS ORDERED: ASPIRIN 81 MG TABLET CHEW ONE (04:48)
[2018-10-04] MEDS: ASPIRIN 81 MG TABLET CHEW PO/NG SCH ×2 (04:50→09:13)
[2018-10-04] MEDS: OXYcodone IR 5MG TABLET PO PRN ×2 (05:42→20:29)
[2018-10-04 06:03] LABS: CHOL/HDL RATIO 2.6; LDL/HDL RATIO 1.1 (0.5-3.0)
[2018-10-04] MEDS ORDERED: ASPIRIN 81 MG TABLET CHEW PO/NG SCH (09:00)
[2018-10-04] MEDS ORDERED: ASPIRIN 81 MG TABLET CHEW PO ONE ×2 (09:00→21:30)
[2018-10-04] MEDS: DIVALPROEX 500 MG TAB.ER.24H PO SCH (09:11)
[2018-10-04] MEDS: APIXABAN 5 MG TABLET PO SCH (09:12)
[2018-10-04] MEDS: GABAPENTIN 100 MG CAPSULE PO SCH ×3 (09:13→20:29)
[2018-10-04] MEDS: ATORVASTATIN 40 MG TABLET PO SCH (20:29)
[2018-10-04] MEDS ORDERED: NITROGLYCERIN 0.4 MG/SPRAY SL PRN (21:30)
[2018-10-04] MEDS ORDERED: SODIUM CHLORIDE 0.9% 1,000ML IVBOLUS ONE (21:30)
[2018-10-04] MEDS: ONDANSETRON 4 MG TABLET PO PRN (21:35)
[2018-10-04 21:57] LABS: TROPONIN I < 0.015 ng/mL (0.000-0.045)
[2018-10-04] MEDS: MORPHINE SULFATE 4 MG/ML, 1ML IVPush PRN (22:29)
[2018-10-05] MEDS: MORPHINE SULFATE 4 MG/ML, 1ML IVPush PRN ×5 (02:17→20:51)
[2018-10-05] MEDS: ONDANSETRON 2MG/ML, 2ML IVPush PRN ×3 (02:18→16:46)
[2018-10-05 02:25] VITALS: BP 92/55
[2018-10-05 03:30] LABS: TROPONIN I < 0.015 ng/mL (0.000-0.045)
[2018-10-05 08:53] VITALS: BP_SYST 103; BP_SYST 91; BP_DIAS 62; BP_DIAS 65
[2018-10-05] MEDS: DIVALPROEX 500 MG TAB.ER.24H PO SCH (10:01)
[2018-10-05] MEDS: GABAPENTIN 100 MG CAPSULE PO SCH ×3 (10:01→20:51)
[2018-10-05] MEDS: OXYcodone IR 5MG TABLET PO PRN ×2 (10:02→23:56)
[2018-10-05 10:16] LABS: TROPONIN I < 0.015 ng/mL (0.000-0.045)
[2018-10-05] MEDS: ONDANSETRON 4 MG TABLET PO PRN (11:44)
[2018-10-05 12:54] VITALS: BP 99/59
[2018-10-05] MEDS ORDERED: OXYC5TAB3 PO (14:56)
[2018-10-05 19:45] VITALS: BP 90/49
[2018-10-05] MEDS: ATORVASTATIN 40 MG TABLET PO SCH (20:51)
[2018-10-06 00:12] VITALS: BP 95/63
[2018-10-06] MEDS: MORPHINE SULFATE 4 MG/ML, 1ML IVPush PRN ×2 (02:10→05:21)
[2018-10-06] MEDS: OXYcodone IR 5MG TABLET PO PRN ×3 (08:11→21:12)
[2018-10-06] MEDS: DIVALPROEX 500 MG TAB.ER.24H PO SCH (08:11)
[2018-10-06] MEDS: GABAPENTIN 100 MG CAPSULE PO SCH ×3 (08:11→21:08)
[2018-10-06 08:59] VITALS: BP 94/52
[2018-10-06] MEDS ORDERED: MAALOX/HYOSCYAMINE/LIDOCAINE 45 ML BTL PO ONE (10:00)
[2018-10-06] MEDS: APIXABAN 5 MG TABLET PO SCH ×2 (10:04→21:08)
[2018-10-06] MEDS: CALCIUM CARBONATE 500 MG TAB.CHEW PO PRN (10:04)
[2018-10-06 13:15] VITALS: BP 91/54
[2018-10-06 18:53] VITALS: BP 93/57
[2018-10-06] MEDS: ATORVASTATIN 80 MG TABLET PO SCH (21:08)
[2018-10-07 01:09] VITALS: BP 90/55
[2018-10-07] MEDS: ONDANSETRON 2MG/ML, 2ML IVPush PRN (09:25)
[2018-10-07] MEDS: APIXABAN 5 MG TABLET PO SCH ×2 (09:25→21:05)
[2018-10-07] MEDS: GABAPENTIN 100 MG CAPSULE PO SCH ×3 (09:25→21:05)
[2018-10-07] MEDS: OXYcodone IR 5MG TABLET PO PRN ×2 (09:26→17:31)
[2018-10-07] MEDS: DIVALPROEX 500 MG TAB.ER.24H PO SCH (09:26)
[2018-10-07 09:47] VITALS: BP 102/63
[2018-10-07 14:11] VITALS: BP 91/62
[2018-10-07 19:39] VITALS: BP 89/59
[2018-10-07 20:18] VITALS: BP 90/51
[2018-10-07] MEDS ORDERED: MORPHINE SULFATE 4 MG/ML, 1ML IV ONE (21:00)
[2018-10-07] MEDS: ATORVASTATIN 80 MG TABLET PO SCH (21:05)
[2018-10-07 21:22] LABS: TROPONIN I < 0.015 ng/mL (0.000-0.045)
[2018-10-07 22:31] VITALS: BP 98/63
[2018-10-08 01:12] VITALS: BP 92/58
[2018-10-08 06:18] LABS: TROPONIN I < 0.015 ng/mL (0.000-0.045)
[2018-10-08] MEDS: APIXABAN 5 MG TABLET PO SCH ×2 (09:18→21:32)
[2018-10-08] MEDS: DIVALPROEX 500 MG TAB.ER.24H PO SCH (09:18)
[2018-10-08] MEDS: GABAPENTIN 100 MG CAPSULE PO SCH ×3 (09:18→21:32)
[2018-10-08 12:53] VITALS: BP 92/56
[2018-10-08] MEDS: OXYcodone IR 5MG TABLET PO PRN ×2 (14:43→21:32)
[2018-10-08] MEDS: CALCIUM CARBONATE 500 MG TAB.CHEW PO PRN (14:43)
[2018-10-08] MEDS ORDERED: LIDODERM 5% PATCH TD ONE (16:02)
[2018-10-08] MEDS: LIDODERM 5% PATCH TD SCH (16:08)
[2018-10-08 20:00] VITALS: BP 85/56
[2018-10-08] MEDS: ATORVASTATIN 80 MG TABLET PO SCH (21:32)
[2018-10-09 02:00] VITALS: BP 85/51
[2018-10-09] MEDS: OXYcodone IR 5MG TABLET PO PRN ×2 (03:32→16:14)
[2018-10-09 07:43] VITALS: BP 95/56
[2018-10-09] MEDS: DIVALPROEX 500 MG TAB.ER.24H PO SCH (08:24)
[2018-10-09] MEDS: GABAPENTIN 100 MG CAPSULE PO SCH ×3 (08:24→20:19)
[2018-10-09] MEDS: APIXABAN 5 MG TABLET PO SCH ×2 (08:24→20:19)
[2018-10-09] MEDS ORDERED: ERGOCALCIFEROL 50,000 UNIT CAPSULE PO SCH (08:30)
[2018-10-09 12:48] VITALS: BP 94/57
[2018-10-09] MEDS: LIDODERM 5% PATCH TD SCH (15:49)
[2018-10-09 19:34] VITALS: BP 84/54
[2018-10-09] MEDS: ATORVASTATIN 80 MG TABLET PO SCH (20:19)
[2018-10-10 01:29] VITALS: BP 90/56
[2018-10-10 07:53] VITALS: BP 95/62
[2018-10-10] MEDS: DIVALPROEX 500 MG TAB.ER.24H PO SCH (08:28)
[2018-10-10] MEDS: OXYcodone IR 5MG TABLET PO PRN ×3 (08:28→21:21)
[2018-10-10] MEDS: APIXABAN 5 MG TABLET PO SCH ×2 (08:28→21:21)
[2018-10-10] MEDS: GABAPENTIN 100 MG CAPSULE PO SCH ×3 (08:28→21:21)
[2018-10-10] MEDS: ONDANSETRON 4 MG TABLET PO PRN (09:05)
[2018-10-10 13:04] VITALS: BP 92/60
[2018-10-10] MEDS ORDERED: MAALOX/HYOSCYAMINE/LIDOCAINE 45 ML BTL PO PRN (17:00)
[2018-10-10] MEDS: LIDODERM 5% PATCH TD SCH (17:17)
[2018-10-10 20:38] VITALS: BP 92/58
[2018-10-10] MEDS: ATORVASTATIN 80 MG TABLET PO SCH (21:21)
[2018-10-11] MEDS: ONDANSETRON 4 MG TABLET PO PRN (00:55)
[2018-10-11 00:59] VITALS: BP 92/61
[2018-10-11 09:17] VITALS: BP 91/57
[2018-10-11] MEDS: DIVALPROEX 500 MG TAB.ER.24H PO SCH (09:50)
[2018-10-11] MEDS: GABAPENTIN 100 MG CAPSULE PO SCH ×3 (09:50→20:38)
[2018-10-11] MEDS: APIXABAN 5 MG TABLET PO SCH ×2 (09:50→20:38)
[2018-10-11] MEDS: OXYcodone IR 5MG TABLET PO PRN ×2 (09:58→16:44)
[2018-10-11 13:52] VITALS: BP 90/56
[2018-10-11] MEDS: LIDODERM 5% PATCH TD SCH (15:39)
[2018-10-11] MEDS: DIAZEPAM 5 MG TABLET PO SCH ×2 (16:30→19:52)
[2018-10-11 19:24] VITALS: BP 86/57
[2018-10-11] MEDS: ATORVASTATIN 80 MG TABLET PO SCH (20:38)
[2018-10-12 01:29] VITALS: BP 92/57
[2018-10-12 07:39] VITALS: BP 91/59
[2018-10-12] MEDS: OXYcodone IR 5MG TABLET PO PRN ×2 (09:09→15:08)
[2018-10-12] MEDS: APIXABAN 5 MG TABLET PO SCH (09:09)
[2018-10-12] MEDS: DIAZEPAM 5 MG TABLET PO SCH (09:09)
[2018-10-12] MEDS: DIVALPROEX 500 MG TAB.ER.24H PO SCH (09:10)
[2018-10-12] MEDS: GABAPENTIN 100 MG CAPSULE PO SCH ×2 (09:10→15:08)
[2018-10-12 12:54] VITALS: BP 95/60
[2018-10-12] MEDS ORDERED: LIDO700A20 TD (14:41)
[2018-10-12] MEDS ORDERED: ERGO500017 PO (14:41)
[2018-10-12] MEDS ORDERED: ATOR-2 PO (14:41)
[2018-10-12] MEDS ORDERED: Maalox/Hyoscyamine/Lidocaine PO (14:41)
[2018-10-12] MEDS: LIDODERM 5% PATCH TD SCH (15:08)
[2018-10-12] MEDS ORDERED: OXYC5CAP2 PO (23:44)
[2018-10-15] MEDS ORDERED: FLUD0.1T PO (10:15)
== END 2018-10-12 14:00 | disposition left against medical advice (07) | DRG 71 ==
LOC: ED 16:17 → EDIP 16:54 → 4EST 17:36 → 5SO 10-04 05:44 → 3NE 10-06 14:49 → 4EST 10-08 15:07
PROVIDERS: ADMIT Hospitalist; ATTEND Hospitalist
DX: G93.41 Metabolic encephalopathy (principal); E87.0 Hyperosmolality and hypernatremia; E44.0 Moderate protein-calorie malnutrition; F11.20 Opioid dependence, uncomplicated; I50.32 Chronic diastolic (congestive) heart failure; I69.351 Hemiplegia and hemiparesis following cerebral infarction affecting right dominant side; I11.0 Hypertensive heart disease with heart failure; M54.9 Dorsalgia, unspecified; G89.29 Other chronic pain; E66.9 Obesity, unspecified; J98.4 Other disorders of lung; J44.9 Chronic obstructive pulmonary disease, unspecified; I71.4 Abdominal aortic aneurysm, without rupture; Z53.21 Procedure and treatment not carried out due to patient leaving prior to being seen by health care provider; E55.9 Vitamin D deficiency, unspecified; E11.51 Type 2 diabetes mellitus with diabetic peripheral angiopathy without gangrene; I25.10 Atherosclerotic heart disease of native coronary artery without angina pectoris; I44.0 Atrioventricular block, first degree; I27.20 Pulmonary hypertension, unspecified; R13.10 Dysphagia, unspecified; Z79.01 Long term (current) use of anticoagulants; Z86.711 Personal history of pulmonary embolism; Z86.718 Personal history of other venous thrombosis and embolism; Z86.79 Personal history of other diseases of the circulatory system; Z91.19 Patient's noncompliance with other medical treatment and regimen; Z83.3 Family history of diabetes mellitus; Z79.899 Other long term (current) drug therapy; Z90.49 Acquired absence of other specified parts of digestive tract; Z90.89 Acquired absence of other organs; Z98.52 Vasectomy status; Z68.33 Body mass index [BMI] 33.0-33.9, adult; Z88.0 Allergy status to penicillin; Z88.8 Allergy status to other drugs, medicaments and biological substances; Z88.6 Allergy status to analgesic agent
CPT/HCPCS: 36415; 70450; 70496; 70498; 71045; 80047; 80053; 80061; 80307; 82140; 82306; 82607; 82962; 83036; 83690; 83735; 84443; 84484; 85025; 85610; 85651; 85730; 86140; 93005; 93306; 93970; 95819; 99285; G0378; J2405; Q0162; Q9967

== ENCOUNTER 2018-10-15 18:48 | Emergency (ER) | payer MEDICARE ==
[~2018-10-15] VITALS: Ht 182.9 cm; Wt 100.0 kg
[~2018-10-15 18:48] MED LIST changes: +ATOR-2 PO; +FLUD0.1T PO; +LIDO700A20 TD; +Maalox/Hyoscyamine/Lidocaine PO; +OXYC20TA2 PO; +OXYC5TAB3 PO
[2018-10-15] MEDS ORDERED: DIAZ5TAB4 PO (19:11)
[2018-10-15] MEDS ORDERED: MAALOX/HYOSCYAMINE/LIDOCAINE 45 ML BTL ONE (19:13)
--- NOTE | 2018-10-15 19:15 | NUR ---
PT RESTING ON GURNEY WITH [employer]OL [employer]DC[employer] ATTENDANT IN PLACE. PT DISCHARGED THIS MORNING FROM HOSPITAL. WAS HERE FOR PAST 4-5 DAYS WITH MIDSTERNAL CHEST PAIN AND PANCREATITIS. PT WAS AT [facility] EATING [employer] DINNER WHEN DEVELOPED MIDSTERNAL BURNING CHEST PAIN. DENIES RADIATION TO ARM OR BACK.
[2018-10-15 19:28] LABS: BASOPHILS # (AUTO) 0.03 x10^3/uL (0-0.1); BASOPHILS % (AUTO) 0 % (0-1); EOSINOPHILS # (AUTO) 0.06 x10^3/uL (0-0.4); EOSINOPHILS % (AUTO) 1 % (1-7); LYMPHOCYTES # (AUTO) 2.41 x10^3/uL (1-3.4); LYMPHOCYTES % (AUTO) 33 % (22-44); MD NO; MEAN CORPUSCULAR HEMOGLOBIN 30.1 pg (27.5-34.5); MEAN CORPUSCULAR VOLUME 91.1 fL (81-97); MEAN PLATELET VOLUME 9.1 fL (7.4-10.4); MONOCYTES # (AUTO) 0.51 x10^3/uL (0.2-0.8); MONOCYTES % (AUTO) 7 % (2-9); NEUTROPHILS # (AUTO) 4.39 x10^3/uL (1.8-6.8); NEUTROPHILS % (AUTO) 59 % (42-75); PLATELET COUNT 156 x10^3/uL (130-400); RED CELL DISTRIBUTION WIDTH 17.6 % (9.4-14.8)
[2018-10-15] MEDS ORDERED: MAALOX/HYOSCYAMINE/LIDOCAINE 45 ML BTL PO ONE (19:30)
[2018-10-15 19:39] LABS: ALANINE AMINOTRANSFERASE 22 U/L (12-78); ANION GAP 8 mmol/L (5-15); CALCIUM 8.7 mg/dL (8.5-10.1); CHLORIDE 110 mmol/L (98-107); CREATININE 0.95 mg/dL (0.7-1.3)
[2018-10-15 19:44] LABS: ALKALINE PHOSPHATASE 86 U/L (45-117); BILIRUBIN,TOTAL 0.4 mg/dL (0.2-1.0); TOTAL PROTEIN 6.2 g/dL (6.4-8.2); TROPONIN I < 0.015 ng/mL (0.000-0.045)
[2018-10-15] MEDS ORDERED: FAMOTIDINE 20 MG/2 ML IVPush ONE (20:00)
[2018-10-15] MEDS ORDERED: FAMOTIDINE 20 MG/2 ML ONE (20:01)
[2018-10-15] MEDS ORDERED: OXYcodone/APAP 10/325MG TABLET ONE (20:36)
--- NOTE | 2018-10-15 20:38 | NUR ---
PT MEDICATED PER EMAR FOR PAIN WITH PERCOCET 10/325MG PO. TOLERATED WELL. VSS. UPDATED ON POC.
[2018-10-15] MEDS ORDERED: OXYcodone/APAP 10/325MG TABLET PO ONE (21:00)
--- NOTE | 2018-10-15 21:22 | NUR ---
PT STATES PAIN IS WORSE AND IS REQUESTING DILAUDID. PT THEN ALSO ASKED FOR SOMETHING TO EAT. VSS.
[2018-10-15 22:07] VITALS: BP 122/72
== END 2018-10-15 22:10 | disposition home or self-care (01) ==
LOC: ED 19:24
DX: R07.89 Other chest pain (principal); R10.13 Epigastric pain; I25.10 Atherosclerotic heart disease of native coronary artery without angina pectoris; I11.0 Hypertensive heart disease with heart failure; I50.9 Heart failure, unspecified; E11.9 Type 2 diabetes mellitus without complications; I25.2 Old myocardial infarction; Z86.73 Personal history of transient ischemic attack (TIA), and cerebral infarction without residual deficits; Z86.718 Personal history of other venous thrombosis and embolism; J44.9 Chronic obstructive pulmonary disease, unspecified; M54.9 Dorsalgia, unspecified; G89.29 Other chronic pain
CPT/HCPCS: 36415; 71045; 80053; 83690; 84484; 85025; 93005; 96374; 99284; J3490

== ENCOUNTER 2018-10-16 20:44 | Emergency (ER) | payer MEDICARE ==
[~2018-10-16] VITALS: Ht 180.3 cm; Wt 73.0 kg
--- NOTE | 2018-10-16 20:51 | NUR ---
Pt NILx1 at this time.
--- NOTE | 2018-10-16 21:19 | NUR ---
Pt c/o cp tonight epigastricx 3 days radiating to R arm w/ sob. +n/v/d. STATES RECENT HOSPITALIZATIONFOR REPORTED RIGHT SIDED STROKE AND PANCREATITUS ONCE ROOMED PLACED ON CONTROLLER MECHANIC-VSS. FAST NEGATIVE
[2018-10-16] MEDS ORDERED: PROMETHAZINE 25 MG/ML, 1ML ONE (21:44)
[2018-10-16 21:56] LABS: BASOPHILS # (AUTO) 0.01 x10^3/uL (0-0.1); BASOPHILS % (AUTO) 0 % (0-1); EOSINOPHILS % (AUTO) 1 % (1-7); LYMPHOCYTES # (AUTO) 2.32 x10^3/uL (1-3.4); LYMPHOCYTES % (AUTO) 29 % (22-44); MD NO; MEAN CORPUSCULAR HEMOGLOBIN 30.5 pg (27.5-34.5); MEAN CORPUSCULAR HGB CONC 33.5 g/dL (33.2-36.2); MEAN CORPUSCULAR VOLUME 90.9 fL (81-97); MEAN PLATELET VOLUME 8.7 fL (7.4-10.4); MONOCYTES # (AUTO) 0.57 x10^3/uL (0.2-0.8); MONOCYTES % (AUTO) 7 % (2-9); NEUTROPHILS # (AUTO) 4.97 x10^3/uL (1.8-6.8); NEUTROPHILS % (AUTO) 62 % (42-75); PLATELET COUNT 174 x10^3/uL (130-400); RED BLOOD COUNT 5.03 x10^6/uL (4.38-5.82); RED CELL DISTRIBUTION WIDTH 17.9 % (9.4-14.8)
[2018-10-16] MEDS ORDERED: PROMETHAZINE 25 MG/ML, 1ML IM ONE (22:00)
--- NOTE | 2018-10-16 22:05 | NUR ---
PIV TO BE DELEGATED TO TECH WHEN AVAILABLE REPORT TO FRITZ VILLA
[2018-10-16 22:09] LABS: ALANINE AMINOTRANSFERASE 20 U/L (12-78); ALBUMIN 3.2 g/dL (3.4-5.0); ANION GAP 11 mmol/L (5-15); CALCIUM 8.7 mg/dL (8.5-10.1); CHLORIDE 111 mmol/L (98-107); CREATININE 1.09 mg/dL (0.7-1.3)
[2018-10-16 22:13] LABS: ALKALINE PHOSPHATASE 94 U/L (45-117); BILIRUBIN,TOTAL 0.5 mg/dL (0.2-1.0); TOTAL PROTEIN 6.4 g/dL (6.4-8.2); TROPONIN I < 0.015 ng/mL (0.000-0.045)
--- NOTE | 2018-10-16 22:45 | NUR ---
NO ORDERED MEDS FOR IV AT THIS TIME. WILL HOLD OFF ON IV. PT LABS RESULTED, PT UP FOR RECHECK.
--- NOTE | 2018-10-16 23:40 | NUR ---
SECURITY RETURNED PT KEYS TO CAR. PT PARKED UNDER CANAPY AND LEFT KEYS IN CAR. ERP PLANS TO DC PT. AWAITING DC PAPERWORK.
[2018-10-16 23:48] VITALS: BP 111/57
== END 2018-10-17 00:41 | disposition home or self-care (01) ==
LOC: ED 21:59
DX: G89.29 Other chronic pain (principal); R10.84 Generalized abdominal pain; R11.2 Nausea with vomiting, unspecified; R07.2 Precordial pain; E11.9 Type 2 diabetes mellitus without complications; I10 Essential (primary) hypertension; Z86.73 Personal history of transient ischemic attack (TIA), and cerebral infarction without residual deficits; I25.10 Atherosclerotic heart disease of native coronary artery without angina pectoris; I11.0 Hypertensive heart disease with heart failure; I50.9 Heart failure, unspecified
CPT/HCPCS: 36415; 80053; 83690; 84484; 85025; 93005; 96372; 99284; J2550

== ENCOUNTER 2018-10-17 20:19 | Inpatient (IN) | payer MEDICARE ==
[~2018-10-17] VITALS: Ht 182.9 cm; Wt 100.2 kg
[2018-10-17] MEDS ORDERED: SODIUM CHLORIDE FLUSH 10ML SYR IVF ONE (21:00)
--- NOTE | 2018-10-17 21:15 | NUR ---
PT REPORTS SUDDEN ONSET STUDDERING WHILE ON PHONE THIS AFTERNOON AROUND 1600. SPEECH CURRENTLY CLEAR, FACE APPEARS SYMMETRICAL. PT MOVING ALL EXTREMITIES. IV ESTABLISHED, LABS DRAWN. FSBS COMPLETED, WNL. BP/SPO2/ECG MONITORING IN PLACE; NSR ON MONITOR.
[2018-10-17 21:25] LABS: MEAN CORPUSCULAR HEMOGLOBIN 29.9 pg (27.5-34.5); MEAN CORPUSCULAR HGB CONC 32.6 g/dL (33.2-36.2); MEAN CORPUSCULAR VOLUME 91.6 fL (81-97); MEAN PLATELET VOLUME 8.9 fL (7.4-10.4); PLATELET COUNT 186 x10^3/uL (130-400); RED BLOOD COUNT 5.29 x10^6/uL (4.38-5.82); RED CELL DISTRIBUTION WIDTH 18.1 % (9.4-14.8)
[2018-10-17 21:28] LABS: ALBUMIN 3.5 g/dL (3.4-5.0); ANION GAP 9 mmol/L (5-15); CALCIUM 8.7 mg/dL (8.5-10.1); CHLORIDE 109 mmol/L (98-107); CREATININE 1.24 mg/dL (0.7-1.3)
[2018-10-17] MEDS ORDERED: ACETAMINOPHEN 500 MG TABLET ONE (21:41)
[2018-10-17 21:47] LABS: BASOPHILS % (AUTO) 0 % (0-1); EOSINOPHILS % (AUTO) 1 % (1-7); LYMPHOCYTES % (AUTO) 20 % (22-44); MONOCYTES % (AUTO) 5 % (2-9); NEUTROPHILS % (AUTO) 74 % (42-75)
[2018-10-17 21:48] LABS: BASOPHILS # (AUTO) 0.02 x10^3/uL (0-0.1); EOSINOPHILS # (AUTO) 0.07 x10^3/uL (0-0.4); MD SCAN
--- NOTE | 2018-10-17 21:53 | NUR ---
PT PASSED SWALLOW EVAL. PT MEDICATED PER EMAR FOR THOMAS.
[2018-10-17] MEDS ORDERED: ACETAMINOPHEN 500 MG TABLET PO ONE (22:00)
[2018-10-17 22:12] LABS: CULTURE INDICATED? NO; MICROSCOPIC NOT IND
--- NOTE | 2018-10-17 22:15 | NUR ---
REPORT TO DAISY NORWOOD ON FLOOR. PT PREPARED FOR TRANSPORT
[2018-10-17] MEDS ORDERED: MAALOX/HYOSCYAMINE/LIDOCAINE 45 ML BTL PO PRN (23:00)
[2018-10-17] MEDS ORDERED: ERGOCALCIFEROL 50,000 UNIT CAPSULE PO SCH (23:00)
[2018-10-17] MEDS: GABAPENTIN 100 MG CAPSULE PO SCH (23:10)
[2018-10-17] MEDS: OXYcodone IR 5MG TABLET PO PRN (23:10)
[2018-10-17] MEDS: LIDODERM 5% PATCH TD SCH (23:10)
[2018-10-17] MEDS: APIXABAN 5 MG TABLET PO SCH (23:10)
[2018-10-17] MEDS: ATORVASTATIN 80 MG TABLET PO SCH (23:10)
[2018-10-17] MEDS: DIAZEPAM 5 MG TABLET PO SCH (23:10)
[2018-10-18] MEDS ORDERED: TRAZODONE 50MG TABLET PO PRN
[2018-10-18] MEDS ORDERED: ACETAMINOPHEN 325 MG TABLET PO PRN
[2018-10-18] MEDS ORDERED: ONDANSETRON 2MG/ML, 2ML IVPush PRN
[2018-10-18] MEDS ORDERED: ENALAPRILAT 1.25 MG/ML, 2ML IVPush PRN
[2018-10-18] MEDS ORDERED: OMNIPAQUE 350 MG/ML, 100ML BOTTLE ONE (00:41)
[2018-10-18 01:05] VITALS: BP 86/56
[2018-10-18 06:11] LABS: BASOPHILS # (AUTO) 0.02 x10^3/uL (0-0.1); BASOPHILS % (AUTO) 0 % (0-1); EOSINOPHILS # (AUTO) 0.25 x10^3/uL (0-0.4); EOSINOPHILS % (AUTO) 3 % (1-7); LYMPHOCYTES # (AUTO) 2.71 x10^3/uL (1-3.4); LYMPHOCYTES % (AUTO) 30 % (22-44); MEAN CORPUSCULAR HEMOGLOBIN 30.1 pg (27.5-34.5); MEAN CORPUSCULAR VOLUME 91.3 fL (81-97); MONOCYTES # (AUTO) 1.12 x10^3/uL (0.2-0.8); MONOCYTES % (AUTO) 12 % (2-9); NEUTROPHILS # (AUTO) 4.98 x10^3/uL (1.8-6.8); NEUTROPHILS % (AUTO) 55 % (42-75); PLATELET COUNT 159 x10^3/uL (130-400); RED BLOOD COUNT 4.54 x10^6/uL (4.38-5.82); RED CELL DISTRIBUTION WIDTH 17.7 % (9.4-14.8)
[2018-10-18 06:15] LABS: ANION GAP 5 mmol/L (5-15); CALCIUM 8.1 mg/dL (8.5-10.1); CHLORIDE 109 mmol/L (98-107)
[2018-10-18 06:16] LABS: CREATININE 1.14 mg/dL (0.7-1.3)
[2018-10-18 06:58] LABS: MD NO
[2018-10-18 07:43] VITALS: BP 91/58
[2018-10-18] MEDS: DIVALPROEX 500 MG TAB.ER.24H PO SCH (09:11)
[2018-10-18] MEDS: APIXABAN 5 MG TABLET PO SCH ×2 (09:12→20:40)
[2018-10-18] MEDS: GABAPENTIN 100 MG CAPSULE PO SCH ×3 (09:12→20:40)
[2018-10-18] MEDS: FLUDROCORTISONE 0.1 MG TABLET PO SCH (09:12)
[2018-10-18] MEDS: DIAZEPAM 5 MG TABLET PO SCH ×2 (09:13→20:40)
[2018-10-18] MEDS: OXYcodone IR 5MG TABLET PO PRN ×2 (09:21→20:40)
[2018-10-18 10:27] LABS: CLOSTRIDIUM DIFFICILE ANTIGEN NEGATIVE; CLOSTRIDIUM DIFFICILE TOXIN NEGATIVE (Negative)
[2018-10-18 12:12] VITALS: BP 93/56
[2018-10-18 20:00] VITALS: BP 103/67
[2018-10-18] MEDS: ATORVASTATIN 80 MG TABLET PO SCH (20:40)
[2018-10-18] MEDS: LIDODERM 5% PATCH TD SCH (23:00)
[2018-10-19 02:00] VITALS: BP 94/56
[2018-10-19] MEDS: OXYcodone IR 5MG TABLET PO PRN (04:15)
[2018-10-19 08:44] VITALS: BP 95/60
[2018-10-19] MEDS: DIVALPROEX 500 MG TAB.ER.24H PO SCH (09:05)
[2018-10-19] MEDS: DIAZEPAM 5 MG TABLET PO SCH (09:05)
[2018-10-19] MEDS: APIXABAN 5 MG TABLET PO SCH (09:05)
[2018-10-19] MEDS: GABAPENTIN 100 MG CAPSULE PO SCH (09:05)
[2018-10-19] MEDS: FLUDROCORTISONE 0.1 MG TABLET PO SCH (09:05)
[2018-10-19 12:07] VITALS: BP 91/56
== END 2018-10-19 17:03 | disposition home or self-care (01) | DRG 103 ==
LOC: ED 20:49 → EDIP 21:54 → 4WST 22:39 → DCLOUNGE 10-19 16:45
PROVIDERS: ADMIT Family Medicine; ATTEND Family Medicine
DX: G43.909 Migraine, unspecified, not intractable, without status migrainosus (principal); E44.0 Moderate protein-calorie malnutrition; I50.32 Chronic diastolic (congestive) heart failure; I69.351 Hemiplegia and hemiparesis following cerebral infarction affecting right dominant side; I67.1 Cerebral aneurysm, nonruptured; R62.7 Adult failure to thrive; E11.40 Type 2 diabetes mellitus with diabetic neuropathy, unspecified; Z88.6 Allergy status to analgesic agent; Z88.0 Allergy status to penicillin; Z88.8 Allergy status to other drugs, medicaments and biological substances; E55.9 Vitamin D deficiency, unspecified; F17.200 Nicotine dependence, unspecified, uncomplicated; F43.10 Post-traumatic stress disorder, unspecified; G40.909 Epilepsy, unspecified, not intractable, without status epilepticus; G89.29 Other chronic pain; I11.0 Hypertensive heart disease with heart failure; M54.9 Dorsalgia, unspecified; I25.10 Atherosclerotic heart disease of native coronary artery without angina pectoris; I25.2 Old myocardial infarction; I27.20 Pulmonary hypertension, unspecified; I71.4 Abdominal aortic aneurysm, without rupture; J44.9 Chronic obstructive pulmonary disease, unspecified; Z79.01 Long term (current) use of anticoagulants; Z83.3 Family history of diabetes mellitus; Z86.711 Personal history of pulmonary embolism; Z86.718 Personal history of other venous thrombosis and embolism; Z87.11 Personal history of peptic ulcer disease; Z91.14 Patient's other noncompliance with medication regimen; Z98.1 Arthrodesis status; Z68.30 Body mass index [BMI] 30.0-30.9, adult; R19.7 Diarrhea, unspecified
CPT/HCPCS: 36415; 70450; 70496; 71045; 80048; 80053; 81003; 82040; 82962; 83690; 84484; 85025; 87324; 93005; 99285; G0378; Q9967

== ENCOUNTER 2018-11-07 20:31 | Emergency (ER) | payer MEDICARE ==
[~2018-11-07] VITALS: Ht 182.9 cm; Wt 97.0 kg
[2018-11-07] MEDS ORDERED: SODIUM CHLORIDE FLUSH 10ML SYR IVF ONE (21:00)
[2018-11-07] MEDS ORDERED: PLEASE ENTER HEIGHT AND WEIGHT MC SCH (21:00)
[2018-11-07] MEDS ORDERED: MORPHINE SULFATE 4 MG/ML, 1ML ONE ×2 (21:15→22:47)
[2018-11-07] MEDS ORDERED: ONDANSETRON 2MG/ML, 2ML ONE (21:17)
[2018-11-07 21:23] LABS: BASOPHILS # (AUTO) 0.05 x10^3/uL (0-0.1); BASOPHILS % (AUTO) 1 % (0-1); EOSINOPHILS # (AUTO) 0.13 x10^3/uL (0-0.4); EOSINOPHILS % (AUTO) 2 % (1-7); LYMPHOCYTES # (AUTO) 2.87 x10^3/uL (1-3.4); LYMPHOCYTES % (AUTO) 41 % (22-44); MD NO; MEAN CORPUSCULAR HEMOGLOBIN 30.4 pg (27.5-34.5); MEAN CORPUSCULAR HGB CONC 31.9 g/dL (33.2-36.2); MEAN CORPUSCULAR VOLUME 95.2 fL (81-97); MEAN PLATELET VOLUME 8.1 fL (7.4-10.4); MONOCYTES # (AUTO) 0.63 x10^3/uL (0.2-0.8); MONOCYTES % (AUTO) 9 % (2-9); NEUTROPHILS # (AUTO) 3.29 x10^3/uL (1.8-6.8); NEUTROPHILS % (AUTO) 47 % (42-75); PLATELET COUNT 183 x10^3/uL (130-400); RED BLOOD COUNT 4.69 x10^6/uL (4.38-5.82); RED CELL DISTRIBUTION WIDTH 18.3 % (9.4-14.8)
--- NOTE | 2018-11-07 21:24 | NUR ---
Pt medicated for 8/10 chest pain. US IV started by Enrico Spence RN. Pt remains on cont cardiac and pulse ox monitoring.
--- NOTE | 2018-11-07 21:29 | NUR ---
Pt states he was recently taken off [employer] 2 days ago, developed cp and sob today.
[2018-11-07] MEDS ORDERED: MORPHINE SULFATE 4 MG/ML, 1ML IVPush PRN (21:30)
[2018-11-07] MEDS ORDERED: ONDANSETRON 2MG/ML, 2ML IVPush ONE (21:30)
[2018-11-07 21:31] LABS: ALANINE AMINOTRANSFERASE 32 U/L (12-78); ALBUMIN 3.2 g/dL (3.4-5.0); ANION GAP 9 mmol/L (5-15); CALCIUM 8.6 mg/dL (8.5-10.1); CHLORIDE 107 mmol/L (98-107); CREATININE 1.03 mg/dL (0.7-1.3)
[2018-11-07 21:35] LABS: ALKALINE PHOSPHATASE 93 U/L (45-117); BILIRUBIN,TOTAL 0.6 mg/dL (0.2-1.0); TOTAL PROTEIN 6.2 g/dL (6.4-8.2); TROPONIN I < 0.015 ng/mL (0.000-0.045)
--- NOTE | 2018-11-07 21:37 | NUR ---
PT BECAME SLIGHTLY HYPOXIC AFTER PAIN MEDICATION ADMINISTRATION, INFORMED AND PT PLACED ON O2 4 LNC. PT REPORTS PAIN IMPROVEMENT.
[2018-11-07 22:53] VITALS: BP 107/55
--- NOTE | 2018-11-07 22:57 | NUR ---
Pt requesting more pain meds, chart up for MD JOSE to recheck then discharge. Holding second dose of morphine per MD
--- NOTE | 2018-11-07 23:22 | NUR ---
Pt verbalized understanding of DC instructions and importance of returning to ED for any worsening/concerning s/s. Pt given taxi voucher per request back to his car.
== END 2018-11-07 23:29 | disposition home or self-care (01) ==
LOC: ED 21:00
DX: R06.00 Dyspnea, unspecified (principal); J94.8 Other specified pleural conditions; I11.0 Hypertensive heart disease with heart failure; I50.9 Heart failure, unspecified; E11.9 Type 2 diabetes mellitus without complications; J44.9 Chronic obstructive pulmonary disease, unspecified; I25.2 Old myocardial infarction; G89.29 Other chronic pain; Z86.73 Personal history of transient ischemic attack (TIA), and cerebral infarction without residual deficits; Z86.718 Personal history of other venous thrombosis and embolism
CPT/HCPCS: 36415; 71045; 80053; 83880; 84484; 85025; 93005; 96374; 96375; 99284; J2405; J2270

== ENCOUNTER 2018-11-08 20:43 | Inpatient (IN) | payer MEDICARE ==
[~2018-11-08] VITALS: Ht 180.3 cm; Wt 97.2 kg
--- NOTE | 2018-11-08 21:27 | NUR ---
Pt c/o CP--sudden onset tonight. Pt had same feeling last night. Was seen in ER and d/c home per pt request. Pt states pain is similar tonight with SOB as well. ERP in to eval. Orders reviewed. Per ERP, do not wait for labs for CT. IV access obtained and pt to go to radiology. Pt aware of poc. Call light in reach.
[2018-11-08 21:41] LABS: ALBUMIN 3.5 g/dL (3.4-5.0); ANION GAP 8 mmol/L (5-15); CALCIUM 8.8 mg/dL (8.5-10.1); CHLORIDE 108 mmol/L (98-107)
--- NOTE | 2018-11-08 21:41 | NUR ---
code neuro called.
--- NOTE | 2018-11-08 21:45 | NUR ---
RN in to check on pt while waiting for CT. Pt states he needs something for his CP. Pt then states that his L side "feels funny". States tingling to L side--initially states same as his neuropathy and then states different. Pt c/o weakness to L arm and leg. Pupils DULCE. Weakness to L side noted. Pt is A&Ox4. Pt states "I think its the pain. If I could get something for pain it would help." ERP aware and no med orders received. ERP in to eval and code neuro called. CT aware.
[2018-11-08 21:46] LABS: CREATININE 1.04 mg/dL (0.7-1.3); TROPONIN I < 0.015 ng/mL (0.000-0.045)
--- NOTE | 2018-11-08 22:05 | NUR ---
Pt to CT and returned. No acute changes noted from previous assessment upon repeat neuro check. Pt continues to request pain meds. ERP in to recheck. No narcotics to be given per ERP. Pt is unable have MRI s/t pain pump "that doesn't work for 5 years". ERP aware and will consult neuro.
[2018-11-08 22:09] LABS: BASOPHILS # (AUTO) 0.05 x10^3/uL (0-0.1); BASOPHILS % (AUTO) 1 % (0-1); EOSINOPHILS # (AUTO) 0.18 x10^3/uL (0-0.4); EOSINOPHILS % (AUTO) 2 % (1-7); LYMPHOCYTES # (AUTO) 3.52 x10^3/uL (1-3.4); LYMPHOCYTES % (AUTO) 39 % (22-44); MD SCAN; MEAN CORPUSCULAR HEMOGLOBIN 31.5 pg (27.5-34.5); MEAN CORPUSCULAR VOLUME 95.4 fL (81-97); MEAN PLATELET VOLUME 9.1 fL (7.4-10.4); MONOCYTES # (AUTO) 0.81 x10^3/uL (0.2-0.8); MONOCYTES % (AUTO) 9 % (2-9); NEUTROPHILS # (AUTO) 4.44 x10^3/uL (1.8-6.8); NEUTROPHILS % (AUTO) 49 % (42-75); PLATELET COUNT 184 x10^3/uL (130-400); RED BLOOD COUNT 4.98 x10^6/uL (4.38-5.82); RED CELL DISTRIBUTION WIDTH 17.3 % (9.4-14.8)
[2018-11-08] MEDS ORDERED: ACETAMINOPHEN 500 MG TABLET ONE (22:15)
--- NOTE | 2018-11-08 22:29 | NUR ---
DR AGOSTO, NEURO, EVAL ON TELEBOT AT BEDSIDE.
[2018-11-08] MEDS ORDERED: ACETAMINOPHEN 500 MG TABLET PO ONE (22:30)
--- NOTE | 2018-11-08 22:30 | NUR ---
PT STATES HE FEELS LIKE HIS FSBS IS LOW. FSBS 66. ERP AWARE. PT PASSED SWALLOW EVAL AND IS TOLERATING WELL. PT MEDICATED WITH TYLENOL PER ERP OK. PT GIVEN ORANGE JUICE AND CRACKERS PER ERP OK FOR FSBS. VSS. AWAITING NEURO.
--- NOTE | 2018-11-08 22:55 | NUR ---
NO TPA PER NEURO. PT WILL BE RESTARTED ON HIS ELIQUIS THAT HE HAS HELD 2 DAYS.
--- NOTE | 2018-11-08 23:01 | NUR ---
PT TO CT FOR CTA
[2018-11-08] MEDS ORDERED: OMNIPAQUE 350 MG/ML, 100ML BOTTLE ONE (23:17)
--- NOTE | 2018-11-08 23:50 | NUR ---
Pt resting with eyes closed and resp even and unlabored. VSS. NSR on monitor. Pt moving L leg to cross legs. Pt states "I've been meditating and it's feeling better." States L arm weakness remains. Pt states he feels like his FSBS is still too low. FSBS checked and 112. Pt to be transfered to floor.
--- NOTE | 2018-11-09 | NUR ---
Provider at bedside to eval for admission orders. Pt to be transferred to floor after assessment.
[2018-11-09 00:21] VITALS: BP 104/68
[2018-11-09] MEDS ORDERED: hydrALAzine 20 MG/ML, 1ML IVPush PRN (00:30)
[2018-11-09] MEDS ORDERED: DOCUSATE 100 MG CAPSULE PO PRN (00:30)
[2018-11-09] MEDS: LIDODERM 5% PATCH TD SCH (00:30)
[2018-11-09] MEDS: GABAPENTIN 100 MG CAPSULE PO SCH ×4 (01:59→20:37)
[2018-11-09] MEDS: ACETAMINOPHEN 325 MG TABLET PO PRN ×3 (01:59→20:37)
[2018-11-09] MEDS: ATORVASTATIN 80 MG TABLET PO SCH ×2 (01:59→20:37)
[2018-11-09 03:25] LABS: BASOPHILS # (AUTO) 0.02 x10^3/uL (0-0.1); BASOPHILS % (AUTO) 0 % (0-1); EOSINOPHILS # (AUTO) 0.16 x10^3/uL (0-0.4); EOSINOPHILS % (AUTO) 3 % (1-7); LYMPHOCYTES # (AUTO) 2.55 x10^3/uL (1-3.4); LYMPHOCYTES % (AUTO) 43 % (22-44); MD NO; MEAN CORPUSCULAR HEMOGLOBIN 30.5 pg (27.5-34.5); MEAN CORPUSCULAR HGB CONC 32.2 g/dL (33.2-36.2); MEAN CORPUSCULAR VOLUME 94.6 fL (81-97); MONOCYTES # (AUTO) 0.55 x10^3/uL (0.2-0.8); MONOCYTES % (AUTO) 9 % (2-9); NEUTROPHILS # (AUTO) 2.64 x10^3/uL (1.8-6.8); NEUTROPHILS % (AUTO) 45 % (42-75); PLATELET COUNT 170 x10^3/uL (130-400)
[2018-11-09 03:36] LABS: ANION GAP 4 mmol/L (5-15); CALCIUM 8.1 mg/dL (8.5-10.1); CHLORIDE 110 mmol/L (98-107); CREATININE 0.94 mg/dL (0.7-1.3)
[2018-11-09 03:40] LABS: TROPONIN I < 0.015 ng/mL (0.000-0.045)
[2018-11-09 07:00] VITALS: BP 98/60
[2018-11-09 09:30] LABS: TROPONIN I < 0.015 ng/mL (0.000-0.045)
[2018-11-09] MEDS: DIAZEPAM 5 MG TABLET PO SCH ×2 (09:55→20:37)
[2018-11-09] MEDS: APIXABAN 5 MG TABLET PO SCH ×2 (09:55→20:37)
[2018-11-09] MEDS: DIVALPROEX 500 MG TAB.ER.24H PO SCH (09:55)
[2018-11-09 13:05] VITALS: BP 170/88
[2018-11-09 19:19] VITALS: BP 92/65
[2018-11-10] MEDS: LIDODERM 5% PATCH TD SCH (00:30)
[2018-11-10 00:31] VITALS: BP 108/70
[2018-11-10 01:25] LABS: TROPONIN I < 0.015 ng/mL (0.000-0.045)
[2018-11-10 07:42] VITALS: BP 113/75
[2018-11-10] MEDS: DIVALPROEX 500 MG TAB.ER.24H PO SCH (08:56)
[2018-11-10] MEDS: APIXABAN 5 MG TABLET PO SCH (08:56)
[2018-11-10] MEDS: DIAZEPAM 5 MG TABLET PO SCH (08:56)
[2018-11-10] MEDS: GABAPENTIN 100 MG CAPSULE PO SCH (08:56)
== END 2018-11-10 13:40 | disposition home or self-care (01) | DRG 303 ==
LOC: ED 20:57 → EDIP 23:19 → 4WST 11-09 00:07 → DCLOUNGE 11-10 13:32
PROVIDERS: ADMIT Internal Medicine; ATTEND Internal Medicine
DX: I25.10 Atherosclerotic heart disease of native coronary artery without angina pectoris (principal); I50.32 Chronic diastolic (congestive) heart failure; Z76.5 Malingerer [conscious simulation]; E11.9 Type 2 diabetes mellitus without complications; E55.9 Vitamin D deficiency, unspecified; F43.10 Post-traumatic stress disorder, unspecified; G40.909 Epilepsy, unspecified, not intractable, without status epilepticus; G89.29 Other chronic pain; M54.9 Dorsalgia, unspecified; I11.0 Hypertensive heart disease with heart failure; G62.9 Polyneuropathy, unspecified; G43.909 Migraine, unspecified, not intractable, without status migrainosus; R53.1 Weakness; I25.2 Old myocardial infarction; I27.20 Pulmonary hypertension, unspecified; I48.91 Unspecified atrial fibrillation; I71.4 Abdominal aortic aneurysm, without rupture; J44.9 Chronic obstructive pulmonary disease, unspecified; Z83.3 Family history of diabetes mellitus; Z86.711 Personal history of pulmonary embolism; Z86.718 Personal history of other venous thrombosis and embolism; Z91.14 Patient's other noncompliance with medication regimen; Z98.1 Arthrodesis status
CPT/HCPCS: 36415; 70450; 71275; 80048; 82040; 82962; 83880; 84484; 85025; 93005; 99285; G0378; Q9967

== ENCOUNTER 2018-11-20 19:26 | Inpatient (IN) | payer MEDICARE ==
[~2018-11-20] VITALS: Ht 180.3 cm; Wt 101.8 kg
--- NOTE | 2018-11-20 19:45 | NUR ---
PT. C/O SUDDEN ONSET DIZZINESS, EPIGASTRIC, AND RIGHT CP 02/27. "FEELS LIKE SOMEONE IS SITTING ON MY CHEST AND THE ROOM IS SPINNING". PT REPORTS HE WAS GAMBLING AND HAD DRANK A RUTH RIGHT BEFORE THE PAIN STARTED. IMMEDIATELY UPON ARRIVAL PT. PLACED ON ALL MONITORS AND EKG DONE; DR. CORONADO WAS AT TO EVAL AND READ EKG. POC DISCUSSED; AWAITING ORDERS. IV ESTABLISHED. PT. REPORTS HX OF AAA "THEY ARE JUST WATCHING IT". PT. SKIN PWD. DENIES USE OF O2 AT HOME; 2L PLACED FOR RA SAT OF 88%; INCREASE TO 93% WITH THIS. PT. SPEAKING IN FULL SENTENCES. A&O X 4.
[2018-11-20] MEDS ORDERED: SODIUM CHLORIDE FLUSH 10ML SYR IVF ONE (20:00)
[2018-11-20] MEDS ORDERED: MORPHINE SULFATE 4 MG/ML, 1ML ONE ×2 (20:04→21:48)
[2018-11-20] MEDS: MORPHINE SULFATE 4 MG/ML, 1ML IVPush PRN ×2 (20:11→22:14)
--- NOTE | 2018-11-20 20:12 | NUR ---
PT. MEDICATED PER AUG. ASSISTED TO REPOSITION ON GURNEY FOR COMFORT. DENIES OTHER NEEDS. LABS COMPLETED. CALL LIGHT IN REACH. ALL SAFETY MEASURES MAINTAINED.
[2018-11-20 20:18] LABS: BASOPHILS # (AUTO) 0.03 x10^3/uL (0-0.1); BASOPHILS % (AUTO) 0 % (0-1); EOSINOPHILS # (AUTO) 0.05 x10^3/uL (0-0.4); EOSINOPHILS % (AUTO) 0 % (1-7); LYMPHOCYTES # (AUTO) 1.98 x10^3/uL (1-3.4); LYMPHOCYTES % (AUTO) 14 % (22-44); MD NO; MEAN CORPUSCULAR HEMOGLOBIN 31.4 pg (27.5-34.5); MEAN CORPUSCULAR HGB CONC 32.9 g/dL (33.2-36.2); MEAN CORPUSCULAR VOLUME 95.4 fL (81-97); MEAN PLATELET VOLUME 8.2 fL (7.4-10.4); MONOCYTES # (AUTO) 0.28 x10^3/uL (0.2-0.8); MONOCYTES % (AUTO) 2 % (2-9); NEUTROPHILS # (AUTO) 11.53 x10^3/uL (1.8-6.8); NEUTROPHILS % (AUTO) 83 % (42-75); PLATELET COUNT 199 x10^3/uL (130-400); RED BLOOD COUNT 4.96 x10^6/uL (4.38-5.82); RED CELL DISTRIBUTION WIDTH 15.3 % (9.4-14.8)
[2018-11-20 20:30] LABS: ALBUMIN 3.2 g/dL (3.4-5.0); ANION GAP 7 mmol/L (5-15); CALCIUM 8.3 mg/dL (8.5-10.1); CHLORIDE 110 mmol/L (98-107)
[2018-11-20 20:36] LABS: ALANINE AMINOTRANSFERASE 30 U/L (12-78); ALKALINE PHOSPHATASE 91 U/L (45-117); BILIRUBIN,TOTAL 0.1 mg/dL (0.2-1.0); CREATININE 1.25 mg/dL (0.7-1.3); TOTAL PROTEIN 6.7 g/dL (6.4-8.2); TROPONIN I < 0.015 ng/mL (0.000-0.045)
[2018-11-20] MEDS ORDERED: SODIUM CHLORIDE 0.9% 1,000ML IVBOLUS ONE (21:00)
--- NOTE | 2018-11-20 21:00 | NUR ---
B/P FINDINGS DISCUSSED WITH DR. CORONADO; IVF INFUSING PER ORDER. VERBAL ORDER TO ONLY RUN 500ML TO START. PT. AWAITING CT. PT. REMAINS A&O X 4, SKIN REMAINS PWD.
--- NOTE | 2018-11-20 21:04 | NUR ---
CALLED CT TO REQUEST PT. BE TAKEN FOR ORDERED CT. THEY REPORT HE IS UP NEXT(APROX 10 MINUTES).
--- NOTE | 2018-11-20 21:20 | NUR ---
IVF D/C'ED. PT. RECEIVED 250ML BOLUS/ BP IMPROVED.
--- NOTE | 2018-11-20 21:22 | NUR ---
TRIED TO GET PT FOR CTA, PT NEED PAIN MED.
--- NOTE | 2018-11-20 22:14 | NUR ---
PT. BACK FROM CT AND MEDICATED PER MAR FOR CONTINUED 8/10 PAIN(CP/ABD). VS UPDATED AND STABLE. CONTINUOUS MONITORS REMAIN IN PLACE. ALL SAFETY MEASURES OBSERVED. PT. DENIES OTHER NEEDS.
--- NOTE | 2018-11-20 22:46 | NUR ---
REPORT TO DAISY ODELL. FLOOR READY FOR PT. TRANSPORT.
[2018-11-20] MEDS ORDERED: OMNIPAQUE 350 MG/ML, 100ML BOTTLE ONE (23:10)
[2018-11-20 23:28] VITALS: BP 117/73
[2018-11-20] MEDS ORDERED: ACETAMINOPHEN 325 MG TABLET PO PRN (23:30)
[2018-11-20] MEDS: LIDODERM 5% PATCH TD SCH (23:55)
[2018-11-21 01:06] VITALS: BP 95/58
[2018-11-21 06:04] LABS: ANION GAP 5 mmol/L (5-15); BASOPHILS # (AUTO) 0.04 x10^3/uL (0-0.1); BASOPHILS % (AUTO) 1 % (0-1); CALCIUM 8.1 mg/dL (8.5-10.1); CHLORIDE 108 mmol/L (98-107); CREATININE 0.93 mg/dL (0.7-1.3); EOSINOPHILS # (AUTO) 0.19 x10^3/uL (0-0.4); EOSINOPHILS % (AUTO) 2 % (1-7); LYMPHOCYTES # (AUTO) 2.83 x10^3/uL (1-3.4); LYMPHOCYTES % (AUTO) 31 % (22-44); MD NO; MEAN CORPUSCULAR HEMOGLOBIN 31.4 pg (27.5-34.5); MEAN CORPUSCULAR HGB CONC 32.8 g/dL (33.2-36.2); MEAN CORPUSCULAR VOLUME 95.9 fL (81-97); MEAN PLATELET VOLUME 8.2 fL (7.4-10.4); MONOCYTES % (AUTO) 12 % (2-9); NEUTROPHILS # (AUTO) 5.09 x10^3/uL (1.8-6.8); NEUTROPHILS % (AUTO) 55 % (42-75); PLATELET COUNT 175 x10^3/uL (130-400); RED CELL DISTRIBUTION WIDTH 15.8 % (9.4-14.8)
[2018-11-21 06:07] LABS: TROPONIN I < 0.015 ng/mL (0.000-0.045)
[2018-11-21] MEDS: INSULIN LISPRO 100 UNITS/ML, PEN SQ-INSULIN SCH ×4 (07:00→19:51)
[2018-11-21] MEDS: DIVALPROEX 500 MG TAB.ER.24H PO SCH (08:06)
[2018-11-21] MEDS: FUROSEMIDE 20 MG TABLET PO SCH ×2 (08:06→17:28)
[2018-11-21] MEDS: GABAPENTIN 100 MG CAPSULE PO SCH ×3 (08:07→20:13)
[2018-11-21] MEDS: APIXABAN 5 MG TABLET PO SCH ×2 (08:07→20:13)
[2018-11-21 08:20] VITALS: BP 94/59
[2018-11-21] MEDS ORDERED: MAALOX/HYOSCYAMINE/LIDOCAINE 45 ML BTL PO ONE (08:30)
[2018-11-21] MEDS: DIAZEPAM 5 MG TABLET PO SCH ×2 (11:01→20:13)
[2018-11-21] MEDS: PANTOPROZOLE 40MG TABLET PO SCH ×2 (11:01→17:30)
[2018-11-21] MEDS: SUCRALFATE 1 GM/10 ML UDC PO SCH ×3 (11:01→20:13)
[2018-11-21] MEDS: FLUDROCORTISONE 0.1 MG TABLET PO SCH (11:08)
[2018-11-21] MEDS ORDERED: PANT40TA5 PO (12:25)
[2018-11-21] MEDS ORDERED: SUCR1ORA5 PO (12:25)
[2018-11-21 15:59] VITALS: BP 97/58
[2018-11-21 19:31] VITALS: BP 95/62
[2018-11-21] MEDS: ATORVASTATIN 80 MG TABLET PO SCH (20:13)
[2018-11-21] MEDS: LIDODERM 5% PATCH TD SCH (23:30)
[2018-11-22 01:35] VITALS: BP 107/68
[2018-11-22] MEDS: PANTOPROZOLE 40MG TABLET PO SCH ×2 (05:59→16:32)
[2018-11-22] MEDS: INSULIN LISPRO 100 UNITS/ML, PEN SQ-INSULIN SCH ×4 (07:00→21:27)
[2018-11-22 07:35] VITALS: BP 96/60
[2018-11-22] MEDS: DIVALPROEX 500 MG TAB.ER.24H PO SCH (08:34)
[2018-11-22] MEDS: SUCRALFATE 1 GM/10 ML UDC PO SCH ×4 (08:34→21:26)
[2018-11-22] MEDS: GABAPENTIN 100 MG CAPSULE PO SCH ×3 (08:35→21:27)
[2018-11-22] MEDS: APIXABAN 5 MG TABLET PO SCH ×2 (08:35→21:27)
[2018-11-22] MEDS: FLUDROCORTISONE 0.1 MG TABLET PO SCH (08:35)
[2018-11-22] MEDS: DIAZEPAM 5 MG TABLET PO SCH ×2 (08:35→21:27)
[2018-11-22] MEDS: FUROSEMIDE 20 MG TABLET PO SCH ×2 (08:35→16:28)
[2018-11-22 13:33] VITALS: BP 90/53
[2018-11-22 16:25] VITALS: BP 96/59
[2018-11-22 19:50] VITALS: BP 102/59
[2018-11-22] MEDS: ATORVASTATIN 80 MG TABLET PO SCH (21:26)
[2018-11-22] MEDS: LIDODERM 5% PATCH TD SCH (23:30)
[2018-11-23 03:59] VITALS: BP 95/63
[2018-11-23] MEDS: PANTOPROZOLE 40MG TABLET PO SCH ×2 (05:03→17:41)
[2018-11-23 05:57] LABS: ALBUMIN 2.7 g/dL (3.4-5.0); ANION GAP 6 mmol/L (5-15); CALCIUM 8.1 mg/dL (8.5-10.1); CHLORIDE 105 mmol/L (98-107)
[2018-11-23 06:01] LABS: ALANINE AMINOTRANSFERASE 19 U/L (12-78); ALKALINE PHOSPHATASE 70 U/L (45-117); BILIRUBIN,TOTAL 0.4 mg/dL (0.2-1.0); CREATININE 1.02 mg/dL (0.7-1.3); TOTAL PROTEIN 5.6 g/dL (6.4-8.2)
[2018-11-23 06:02] LABS: MEAN CORPUSCULAR HEMOGLOBIN 31.1 pg (27.5-34.5); MEAN CORPUSCULAR HGB CONC 32.4 g/dL (33.2-36.2); MEAN CORPUSCULAR VOLUME 95.9 fL (81-97); MEAN PLATELET VOLUME 8.3 fL (7.4-10.4); PLATELET COUNT 159 x10^3/uL (130-400); RED BLOOD COUNT 4.37 x10^6/uL (4.38-5.82); RED CELL DISTRIBUTION WIDTH 15.4 % (9.4-14.8)
[2018-11-23 06:20] LABS: BASOPHILS # (AUTO) 0.04 x10^3/uL (0-0.1); BASOPHILS % (AUTO) 1 % (0-1); EOSINOPHILS % (AUTO) 3 % (1-7); LYMPHOCYTES # (AUTO) 2.97 x10^3/uL (1-3.4); LYMPHOCYTES % (AUTO) 43 % (22-44); MD SCAN; MONOCYTES # (AUTO) 0.64 x10^3/uL (0.2-0.8); MONOCYTES % (AUTO) 9 % (2-9); NEUTROPHILS # (AUTO) 3.11 x10^3/uL (1.8-6.8); NEUTROPHILS % (AUTO) 45 % (42-75)
[2018-11-23] MEDS: INSULIN LISPRO 100 UNITS/ML, PEN SQ-INSULIN SCH ×4 (07:00→20:41)
[2018-11-23] MEDS: FLUDROCORTISONE 0.1 MG TABLET PO SCH (08:33)
[2018-11-23] MEDS: GABAPENTIN 100 MG CAPSULE PO SCH ×3 (08:34→20:40)
[2018-11-23] MEDS: DIVALPROEX 500 MG TAB.ER.24H PO SCH (08:34)
[2018-11-23] MEDS: FUROSEMIDE 20 MG TABLET PO SCH ×2 (08:34→17:42)
[2018-11-23] MEDS: DIAZEPAM 5 MG TABLET PO SCH ×2 (08:34→20:40)
[2018-11-23] MEDS: SUCRALFATE 1 GM/10 ML UDC PO SCH ×4 (08:34→20:40)
[2018-11-23] MEDS: APIXABAN 5 MG TABLET PO SCH ×2 (08:34→20:40)
[2018-11-23 09:15] VITALS: BP 90/53
[2018-11-23 13:28] VITALS: BP 111/70
[2018-11-23 20:18] VITALS: BP 108/61
[2018-11-23] MEDS: ATORVASTATIN 80 MG TABLET PO SCH (20:41)
[2018-11-24 01:27] VITALS: BP 98/66
[2018-11-24 05:37] LABS: ALBUMIN 2.5 g/dL (3.4-5.0); ANION GAP 5 mmol/L (5-15); CALCIUM 7.7 mg/dL (8.5-10.1); CHLORIDE 106 mmol/L (98-107)
[2018-11-24 05:42] LABS: ALANINE AMINOTRANSFERASE 19 U/L (12-78); ALKALINE PHOSPHATASE 68 U/L (45-117); BILIRUBIN,TOTAL 0.3 mg/dL (0.2-1.0); CREATININE 1.02 mg/dL (0.7-1.3); TOTAL PROTEIN 5.4 g/dL (6.4-8.2)
[2018-11-24 06:32] LABS: BASOPHILS # (AUTO) 0.08 x10^3/uL (0-0.1); BASOPHILS % (AUTO) 1 % (0-1); EOSINOPHILS # (AUTO) 0.15 x10^3/uL (0-0.4); EOSINOPHILS % (AUTO) 3 % (1-7); LYMPHOCYTES # (AUTO) 2.62 x10^3/uL (1-3.4); LYMPHOCYTES % (AUTO) 42 % (22-44); MD NO; MEAN CORPUSCULAR HEMOGLOBIN 30.5 pg (27.5-34.5); MEAN CORPUSCULAR HGB CONC 32.1 g/dL (33.2-36.2); MEAN CORPUSCULAR VOLUME 94.9 fL (81-97); MEAN PLATELET VOLUME 8.1 fL (7.4-10.4); MONOCYTES # (AUTO) 0.55 x10^3/uL (0.2-0.8); MONOCYTES % (AUTO) 9 % (2-9); NEUTROPHILS % (AUTO) 46 % (42-75); PLATELET COUNT 146 x10^3/uL (130-400); RED BLOOD COUNT 4.46 x10^6/uL (4.38-5.82); RED CELL DISTRIBUTION WIDTH 15.6 % (9.4-14.8)
[2018-11-24] MEDS: PANTOPROZOLE 40MG TABLET PO SCH ×2 (06:38→16:54)
[2018-11-24] MEDS: INSULIN LISPRO 100 UNITS/ML, PEN SQ-INSULIN SCH ×4 (07:00→20:08)
[2018-11-24 07:20] VITALS: BP 95/60
[2018-11-24] MEDS: SUCRALFATE 1 GM/10 ML UDC PO SCH ×4 (08:03→20:12)
[2018-11-24] MEDS: APIXABAN 5 MG TABLET PO SCH ×2 (08:04→20:12)
[2018-11-24] MEDS: FLUDROCORTISONE 0.1 MG TABLET PO SCH (08:04)
[2018-11-24] MEDS: DIVALPROEX 500 MG TAB.ER.24H PO SCH (08:04)
[2018-11-24] MEDS: GABAPENTIN 100 MG CAPSULE PO SCH ×3 (08:04→20:12)
[2018-11-24] MEDS: FUROSEMIDE 20 MG TABLET PO SCH ×2 (08:04→16:54)
[2018-11-24] MEDS: DIAZEPAM 5 MG TABLET PO SCH ×2 (08:04→20:12)
[2018-11-24] MEDS: LIDODERM 5% PATCH TD SCH (08:40)
--- NOTE | 2018-11-24 09:25 | NUR ---
Nursing Activity Sheet 1. UP IN CHAIR FOR ALL MEALS 2. SEATED BILATERAL LOWER EXTREMITY EXERCISES 3X'S A DAY: GREEN EXERCISE SHEET HAS BEEN REVIEWED AND DEMONSTRATED BACK BY PATIENT 3. AMBULATE WITH NURSING STAFF TO THE RESTROOM OR IN THE ROOM 3X'S A DAY IF POSSIBLE. *REVIEWED THE ABOVE WITH RN AND PATIENT Addendum: 11/24/18 at 1105 by MORRIS LOU PTA Amended: Links added.
[2018-11-24 13:35] VITALS: BP 98/56
[2018-11-24 19:30] VITALS: BP 117/71
[2018-11-24] MEDS: ATORVASTATIN 80 MG TABLET PO SCH (20:12)
[2018-11-25 02:08] VITALS: BP 93/54
[2018-11-25] MEDS: PANTOPROZOLE 40MG TABLET PO SCH (06:31)
[2018-11-25] MEDS: INSULIN LISPRO 100 UNITS/ML, PEN SQ-INSULIN SCH (07:00)
[2018-11-25 07:24] VITALS: BP 111/68
[2018-11-25] MEDS: SUCRALFATE 1 GM/10 ML UDC PO SCH ×2 (07:39→11:17)
[2018-11-25] MEDS: APIXABAN 5 MG TABLET PO SCH (07:40)
[2018-11-25] MEDS: FUROSEMIDE 20 MG TABLET PO SCH (07:40)
[2018-11-25] MEDS: DIAZEPAM 5 MG TABLET PO SCH (07:40)
[2018-11-25] MEDS: DIVALPROEX 500 MG TAB.ER.24H PO SCH (07:41)
[2018-11-25] MEDS: GABAPENTIN 100 MG CAPSULE PO SCH (07:41)
[2018-11-25] MEDS: FLUDROCORTISONE 0.1 MG TABLET PO SCH (07:45)
[2018-11-25] MEDS: LIDODERM 5% PATCH TD SCH (09:13)
== END 2018-11-25 12:28 | DRG 205 ==
LOC: ED 22:05 → EDIP 22:29 → 5SO 23:28
PROVIDERS: ADMIT Internal Medicine; ATTEND Internal Medicine
DX: M94.0 Chondrocostal junction syndrome [Tietze] (principal); N17.0 Acute kidney failure with tubular necrosis; I69.351 Hemiplegia and hemiparesis following cerebral infarction affecting right dominant side; I50.32 Chronic diastolic (congestive) heart failure; E87.2 Acidosis; I71.2 Thoracic aortic aneurysm, without rupture; I71.4 Abdominal aortic aneurysm, without rupture; Z88.6 Allergy status to analgesic agent; Z88.0 Allergy status to penicillin; Z88.8 Allergy status to other drugs, medicaments and biological substances; D64.9 Anemia, unspecified; E11.9 Type 2 diabetes mellitus without complications; F17.290 Nicotine dependence, other tobacco product, uncomplicated; G40.909 Epilepsy, unspecified, not intractable, without status epilepticus; I11.0 Hypertensive heart disease with heart failure; I25.10 Atherosclerotic heart disease of native coronary artery without angina pectoris; I25.2 Old myocardial infarction; I27.20 Pulmonary hypertension, unspecified; I44.1 Atrioventricular block, second degree; I67.1 Cerebral aneurysm, nonruptured; J43.9 Emphysema, unspecified; J84.10 Pulmonary fibrosis, unspecified; Z76.5 Malingerer [conscious simulation]; Z79.01 Long term (current) use of anticoagulants; Z83.3 Family history of diabetes mellitus; Z86.711 Personal history of pulmonary embolism; Z86.718 Personal history of other venous thrombosis and embolism; Z86.79 Personal history of other diseases of the circulatory system; Z87.11 Personal history of peptic ulcer disease; Z91.14 Patient's other noncompliance with medication regimen; Z98.1 Arthrodesis status; Z90.49 Acquired absence of other specified parts of digestive tract
CPT/HCPCS: 36415; 71045; 71275; 80048; 80053; 82962; 83605; 83690; 83735; 83880; 84100; 84484; 85025; 93005; 96374; G0378; Q9967; J2270; J7030

== ENCOUNTER 2019-04-24 18:51 | Emergency (ER) | payer MEDICARE ==
[~2019-04-24] VITALS: Ht 182.9 cm; Wt 91.0 kg
[~2019-04-24 18:51] MED LIST changes: +PANT40TA5 PO; +POTA99TA24 PO; +SUCR1ORA5 PO
--- NOTE | 2019-04-24 19:15 | NUR ---
LAB AT BEDSIDE FOR DRAW
[2019-04-24] MEDS ORDERED: MAALOX/HYOSCYAMINE/LIDOCAINE 45 ML BTL ONE (19:26)
[2019-04-24] MEDS ORDERED: ONDANSETRON 2MG/ML, 2ML ONE (19:26)
[2019-04-24] MEDS ORDERED: MORPHINE SULFATE 4 MG/ML, 1ML ONE (19:26)
[2019-04-24] MEDS ORDERED: FAMOTIDINE 20 MG/2 ML ONE (19:27)
[2019-04-24] MEDS ORDERED: MAALOX/HYOSCYAMINE/LIDOCAINE 45 ML BTL PO ONE (19:30)
[2019-04-24] MEDS ORDERED: FAMOTIDINE 20 MG/2 ML IV ONE (19:30)
[2019-04-24] MEDS ORDERED: MORPHINE SULFATE 4 MG/ML, 1ML IVPush PRN (19:30)
[2019-04-24] MEDS ORDERED: ONDANSETRON 2MG/ML, 2ML IVPush ONE (19:30)
[2019-04-24 19:39] LABS: ALANINE AMINOTRANSFERASE 46 U/L (12-78); ALBUMIN 3.4 g/dL (3.4-5.0); ANION GAP 13 mmol/L (5-15); CALCIUM 8.7 mg/dL (8.5-10.1); CHLORIDE 107 mmol/L (98-107); CREATININE 1.19 mg/dL (0.7-1.3)
[2019-04-24 19:44] LABS: ALKALINE PHOSPHATASE 105 U/L (45-117); BILIRUBIN,TOTAL 0.7 mg/dL (0.2-1.0); TOTAL PROTEIN 7.4 g/dL (6.4-8.2); TROPONIN I < 0.015 ng/mL (0.000-0.045)
--- NOTE | 2019-04-24 20:06 | NUR ---
TASK RN: PT MEDICATED PER EMAR. 5 RIGHTS ADDRESSED. ALL VITALS STABLE. NSR ON THE MONITOR. NO ST CHANGES OR ECTOPY NOTED. PT RESTING ON GURNEY WATCHING TV. C/O NEUROPATHY PAIN. REQUESTING PO FLUIDS. WILL DISCUSS WITH ERP.
[2019-04-24 20:07] VITALS: BP 116/82
[2019-04-24 20:12] LABS: BASOPHILS # (AUTO) 0.05 x10^3/uL (0-0.1); BASOPHILS % (AUTO) 1 % (0-1); EOSINOPHILS # (AUTO) 0.06 x10^3/uL (0-0.4); EOSINOPHILS % (AUTO) 1 % (1-7); LYMPHOCYTES # (AUTO) 2.95 x10^3/uL (1-3.4); LYMPHOCYTES % (AUTO) 30 % (22-44); MD NO; MEAN CORPUSCULAR HEMOGLOBIN 31.2 pg (27.5-34.5); MEAN CORPUSCULAR HGB CONC 32.7 g/dL (33.2-36.2); MEAN CORPUSCULAR VOLUME 95.6 fL (81-97); MEAN PLATELET VOLUME 8.4 fL (7.4-10.4); MONOCYTES # (AUTO) 0.96 x10^3/uL (0.2-0.8); MONOCYTES % (AUTO) 10 % (2-9); NEUTROPHILS # (AUTO) 5.78 x10^3/uL (1.8-6.8); NEUTROPHILS % (AUTO) 59 % (42-75); PLATELET COUNT 190 x10^3/uL (130-400); RED BLOOD COUNT 5.34 x10^6/uL (4.38-5.82); RED CELL DISTRIBUTION WIDTH 13.1 % (9.4-14.8)
--- NOTE | 2019-04-24 20:29 | NUR ---
ADDITIONAL ORDERS FOR CT RECEIVED. AWAITING TESTING AND RECHECK AT THIS TIME
--- NOTE | 2019-04-24 20:48 | NUR ---
BEING TAKEN TO CT
--- NOTE | 2019-04-24 20:56 | NUR ---
ALL RESULTS BACK AT THIS TIME, CHART UP FOR RECHECK
--- NOTE | 2019-04-24 21:03 | NUR ---
MD TO BEDSIDE AT THIS TIME TO UPDATE PT ON POC
== END 2019-04-24 21:51 | disposition home or self-care (01) ==
LOC: ED 21:41
DX: R10.13 Epigastric pain (principal); R07.89 Other chest pain; R06.02 Shortness of breath; R11.0 Nausea; I11.0 Hypertensive heart disease with heart failure; I50.9 Heart failure, unspecified; E11.9 Type 2 diabetes mellitus without complications; G40.909 Epilepsy, unspecified, not intractable, without status epilepticus; J44.9 Chronic obstructive pulmonary disease, unspecified; Z86.73 Personal history of transient ischemic attack (TIA), and cerebral infarction without residual deficits; F17.200 Nicotine dependence, unspecified, uncomplicated; Z90.89 Acquired absence of other organs; Z90.49 Acquired absence of other specified parts of digestive tract; Z86.718 Personal history of other venous thrombosis and embolism
CPT/HCPCS: 36415; 71045; 74176; 80053; 83690; 83735; 83880; 84484; 85025; 85379; 93005; 96374; 96375; 99284; J2270; J2405; J3490; 96366

== ENCOUNTER 2019-05-08 21:51 | Emergency (ER) | payer MEDICARE ==
[~2019-05-08] VITALS: Ht 182.9 cm; Wt 90.7 kg
[2019-05-08] MEDS ORDERED: ONDANSETRON 2MG/ML, 2ML IVPush ONE (22:30)
[2019-05-08] MEDS ORDERED: MORPHINE SULFATE 4 MG/ML, 1ML IVPush PRN (22:30)
[2019-05-08] MEDS ORDERED: ONDANSETRON 2MG/ML, 2ML ONE (22:37)
[2019-05-08] MEDS ORDERED: MORPHINE SULFATE 4 MG/ML, 1ML ONE (22:38)
--- NOTE | 2019-05-08 23:18 | NUR ---
PT BIB [facility] FOR C/O SHARP CP GETTING PROGRESSIVELY WORSE THROUGHOUT THE DAY. PT STATES HAS NOT TAKEN MEDICATIONS FOR ABOUT ONE WEEK. PT DENIES N/V, REPORTS HAS BEEN HERE "MANY TIMES." MULTIPLE ATTEMPTS TO PLACE PIV OR OBTAIN BLOOD UNSUCCESSFUL.
--- NOTE | 2019-05-08 23:36 | NUR ---
CT PENDING LAB/CREATINE.
[2019-05-08 23:46] LABS: ALANINE AMINOTRANSFERASE 101 U/L (12-78); ALBUMIN 3.1 g/dL (3.4-5.0); ANION GAP 8 mmol/L (5-15); CHLORIDE 108 mmol/L (98-107); CREATININE 1.05 mg/dL (0.7-1.3)
[2019-05-08 23:51] LABS: ALKALINE PHOSPHATASE 123 U/L (45-117); BILIRUBIN,TOTAL 0.3 mg/dL (0.2-1.0); TROPONIN I < 0.015 ng/mL (0.000-0.045)
[2019-05-09 00:06] LABS: MD YES
[2019-05-09 00:07] LABS: MEAN CORPUSCULAR HEMOGLOBIN 29.9 pg (27.5-34.5); MEAN CORPUSCULAR HGB CONC 32.1 g/dL (33.2-36.2); MEAN CORPUSCULAR VOLUME 92.9 fL (81-97); MEAN PLATELET VOLUME 8.9 fL (7.4-10.4); PLATELET COUNT 180 x10^3/uL (130-400); RED BLOOD COUNT 5.37 x10^6/uL (4.38-5.82); RED CELL DISTRIBUTION WIDTH 12.8 % (9.4-14.8)
[2019-05-09 00:10] LABS: <PLATELET ESTIMATE> ADEQUATE; <PLT MORPHOLOGY> NORMAL PLT MORPH; <RBC MORPHOLOGY> NORMAL; BAND#(MANUAL) 0.14 x10^3/uL; BANDS%(MANUAL) 1 % (0-7); EOS#(MANUAL) 0.27 x10^3/uL (0.0-0.4); EOS% (MANUAL) 2 % (1-7); LYMPH#(MANUAL) 5.17 x10^3/uL (1-3.4); LYMPHS% (MANUAL) 38 % (22-44); MONOS#(MANUAL) 1.09 x10^3/uL (0.3-2.7); MONOS% (MANUAL) 8 % (2-9); SEG#(MANUAL) 6.94 x10^3/uL (1.8-6.8); SEGS% (MANUAL) 51 % (42-75)
[2019-05-09] MEDS ORDERED: OMNIPAQUE 350 MG/ML, 100ML BOTTLE ONE (00:10)
--- NOTE | 2019-05-09 00:14 | NUR ---
PT BACK FROM CT. WINDOWS CONSULTANT ABLE TO PLACE PIV IN REJ. PT WAS MEDICATED W/ MORPHINE AND ZOFRAN ORDERED PRIOR TO GOING TO CT. PT REPOSITIONED ON GURNEY FOR COMFORT, PROVIDED W/ WARM BLANKET. PT AWARE WAITING FOR TEST RESULTS AND CHART REVIEW BY ERP.
--- NOTE | 2019-05-09 00:41 | NUR ---
BREAK RN: URINE WALKED TO LAB.
[2019-05-09 00:53] LABS: MICROSCOPIC INDICATED
[2019-05-09 00:54] LABS: CULTURE INDICATED? YES
[2019-05-09] MEDS ORDERED: METOCLOPRAMIDE 5 MG/ML, 2ML IVPush ONE (01:00)
[2019-05-09] MEDS ORDERED: METOCLOPRAMIDE 5 MG/ML, 2ML ONE (01:03)
[2019-05-09 01:22] VITALS: BP 119/78
== END 2019-05-09 01:22 | disposition home or self-care (01) ==
LOC: ED 23:37
DX: K29.00 Acute gastritis without bleeding (principal); M79.673 Pain in unspecified foot; E11.9 Type 2 diabetes mellitus without complications; J44.9 Chronic obstructive pulmonary disease, unspecified; I25.2 Old myocardial infarction; I11.0 Hypertensive heart disease with heart failure; I50.9 Heart failure, unspecified; I25.10 Atherosclerotic heart disease of native coronary artery without angina pectoris; F17.200 Nicotine dependence, unspecified, uncomplicated; G40.909 Epilepsy, unspecified, not intractable, without status epilepticus; Z87.11 Personal history of peptic ulcer disease; Z90.49 Acquired absence of other specified parts of digestive tract; Z90.89 Acquired absence of other organs; Z86.73 Personal history of transient ischemic attack (TIA), and cerebral infarction without residual deficits; Z86.718 Personal history of other venous thrombosis and embolism
CPT/HCPCS: 36415; 71045; 74177; 80053; 81001; 83690; 84484; 85025; 87086; 93005; 96374; 96375; 99284; J2270; J2405; J2765; Q9967

== ENCOUNTER 2019-05-17 00:45 | Emergency (ER) | payer MEDICARE ==
[~2019-05-17] VITALS: Ht 182.9 cm; Wt 85.0 kg
[2019-05-17 00:55] VITALS: BP 106/77
[2019-05-17] MEDS ORDERED: CYCLOBENZAPRINE 10 MG TABLET PO ONE (01:30)
[2019-05-17] MEDS ORDERED: OXYcodone/APAP 5/325MG TABLET PO ONE (01:30)
[2019-05-17] MEDS ORDERED: CYCLOBENZAPRINE 10 MG TABLET ONE (01:36)
[2019-05-17] MEDS ORDERED: OXYcodone/APAP 5/325MG TABLET ONE (01:37)
== END 2019-05-17 04:34 | disposition home or self-care (01) ==
LOC: ED 01:53
DX: M54.5 Low back pain (principal); G62.9 Polyneuropathy, unspecified; Z72.9 Problem related to lifestyle, unspecified; I11.0 Hypertensive heart disease with heart failure; I50.9 Heart failure, unspecified; E11.9 Type 2 diabetes mellitus without complications; I25.10 Atherosclerotic heart disease of native coronary artery without angina pectoris; J44.9 Chronic obstructive pulmonary disease, unspecified; G40.909 Epilepsy, unspecified, not intractable, without status epilepticus; F17.200 Nicotine dependence, unspecified, uncomplicated; Z86.73 Personal history of transient ischemic attack (TIA), and cerebral infarction without residual deficits; Z86.718 Personal history of other venous thrombosis and embolism
CPT/HCPCS: 99283

== ENCOUNTER 2019-05-25 18:08 | Emergency (ER) | payer MEDICARE ==
[~2019-05-25] VITALS: Ht 182.9 cm; Wt 84.0 kg
[2019-05-25 18:23] VITALS: BP 109/75
--- NOTE | 2019-05-25 19:01 | NUR ---
NETWORK DIAGNOSTIC SUPPORT SPECIALIST: PT TO ROOM FROM LOBBY VIA W/C
--- NOTE | 2019-05-25 19:20 | NUR ---
PT STATES HE THINKS HE HAS BEEN HAVING SEIZURES. STATES [facility] RAN OUT OF [employer] [facility]. PER PT HE WAS FOUND IN THE BATHROOM AND DOES NOT REMEMBER THE SITUATION. PT IS STABLE. HAS COMPLAINTS OF FOOT PIAN. GIVEN A WARM BLANKET TO WRAP AROUND FEET. VS STABLE.
[2019-05-25] MEDS ORDERED: DIVALPROEX 500 MG TAB.ER.24H ONE (19:23)
[2019-05-25] MEDS ORDERED: DIVALPROEX 500 MG TABLET.DR ONE (19:25)
--- NOTE | 2019-05-25 19:49 | NUR ---
Patient/Caregiver given discharge instructions and they have confirmed that they understand the instructions. Patient ambulatory with steady gait.
[2019-05-25] MEDS ORDERED: DIVALPROEX 500 MG TABLET.DR PO ONE (20:00)
[2019-05-30] MEDS ORDERED: QUET25TA7 PO (12:26)
[2019-05-30] MEDS ORDERED: ATOR40TA PO (12:26)
[2019-05-30] MEDS ORDERED: POTA20TA14 PO (12:26)
[2019-05-30] MEDS ORDERED: HYDR50TA13 PO (12:26)
[2019-05-30] MEDS ORDERED: TRAM50TA2 PO (12:26)
[2019-05-30] MEDS ORDERED: CHOL20002 PO (12:26)
[2019-05-30] MEDS ORDERED: DIVA500T4 PO (12:26)
[2019-05-30] MEDS ORDERED: CYCL5TAB PO (12:26)
[2019-05-30] MEDS ORDERED: MIRT-34 PO (12:26)
[2019-05-30] MEDS ORDERED: ACET-1600 PO (12:26)
[2019-05-30] MEDS ORDERED: PREG150C PO (12:26)
[2019-06-05] MEDS ORDERED: GUAI200T37 PO (11:06)
[2019-06-05] MEDS ORDERED: ALBU90AE INH (11:06)
[2019-06-05] MEDS ORDERED: TIOT18CA INH (11:06)
== END 2019-05-25 19:51 | disposition home or self-care (01) ==
LOC: ED 19:45
DX: G40.301 Generalized idiopathic epilepsy and epileptic syndromes, not intractable, with status epilepticus (principal); I11.0 Hypertensive heart disease with heart failure; E11.9 Type 2 diabetes mellitus without complications; J44.9 Chronic obstructive pulmonary disease, unspecified; I25.10 Atherosclerotic heart disease of native coronary artery without angina pectoris; I25.2 Old myocardial infarction; I50.9 Heart failure, unspecified; F17.200 Nicotine dependence, unspecified, uncomplicated; G89.29 Other chronic pain; G40.909 Epilepsy, unspecified, not intractable, without status epilepticus; Z90.49 Acquired absence of other specified parts of digestive tract; Z90.89 Acquired absence of other organs
CPT/HCPCS: 99283

== ENCOUNTER 2019-05-27 22:47 | Emergency (ER) | payer MEDICARE ==
[~2019-05-27] VITALS: Ht 182.9 cm; Wt 86.0 kg
[2019-05-27] MEDS ORDERED: SODIUM CHLORIDE FLUSH 10ML SYR IVF ONE (23:00)
[2019-05-27] MEDS ORDERED: ACETAMINOPHEN 325 MG TABLET PO ONE (23:00)
[2019-05-27] MEDS ORDERED: ASPIRIN 81 MG TABLET CHEW PO ONE (23:00)
[2019-05-27 23:06] LABS: BASOPHILS # (AUTO) 0.04 x10^3/uL (0-0.1); BASOPHILS % (AUTO) 0 % (0-1); EOSINOPHILS # (AUTO) 0.17 x10^3/uL (0-0.4); EOSINOPHILS % (AUTO) 2 % (1-7); LYMPHOCYTES # (AUTO) 3.07 x10^3/uL (1-3.4); LYMPHOCYTES % (AUTO) 31 % (22-44); MD NO; MEAN CORPUSCULAR HEMOGLOBIN 30.7 pg (27.5-34.5); MEAN CORPUSCULAR HGB CONC 32.7 g/dL (33.2-36.2); MEAN CORPUSCULAR VOLUME 93.9 fL (81-97); MEAN PLATELET VOLUME 7.9 fL (7.4-10.4); MONOCYTES % (AUTO) 8 % (2-9); NEUTROPHILS # (AUTO) 5.86 x10^3/uL (1.8-6.8); NEUTROPHILS % (AUTO) 59 % (42-75); PLATELET COUNT 203 x10^3/uL (130-400); RED BLOOD COUNT 4.79 x10^6/uL (4.38-5.82); RED CELL DISTRIBUTION WIDTH 14.1 % (9.4-14.8)
[2019-05-27] MEDS ORDERED: ASPIRIN 81 MG TABLET CHEW ONE (23:13)
[2019-05-27] MEDS ORDERED: ACETAMINOPHEN 325 MG TABLET ONE (23:13)
[2019-05-27 23:14] LABS: ALANINE AMINOTRANSFERASE 30 U/L (12-78); ANION GAP 8 mmol/L (5-15); CALCIUM 8.8 mg/dL (8.5-10.1); CHLORIDE 112 mmol/L (98-107); CREATININE 0.91 mg/dL (0.7-1.3)
[2019-05-27 23:16] VITALS: BP 105/75
[2019-05-27 23:18] LABS: ALKALINE PHOSPHATASE 99 U/L (45-117); BILIRUBIN,TOTAL 0.5 mg/dL (0.2-1.0); TOTAL PROTEIN 6.7 g/dL (6.4-8.2); TROPONIN I < 0.015 ng/mL (0.000-0.045)
[2019-05-28] MEDS ORDERED: METHOCARBAMOL 750 MG TABLET PO ONE
[2019-05-28] MEDS ORDERED: METHOCARBAMOL 750 MG TABLET ONE (00:11)
[2019-05-28] MEDS ORDERED: AZITHROMYCIN 500 MG TABLET ONE (00:20)
[2019-05-28] MEDS ORDERED: AZITHROMYCIN 500 MG TABLET PO ONE (00:30)
== END 2019-05-28 00:42 | disposition home or self-care (01) ==
LOC: ED 22:55
DX: R07.9 Chest pain, unspecified (principal); E11.40 Type 2 diabetes mellitus with diabetic neuropathy, unspecified; J18.9 Pneumonia, unspecified organism; I11.0 Hypertensive heart disease with heart failure; I50.9 Heart failure, unspecified; I25.2 Old myocardial infarction; J44.9 Chronic obstructive pulmonary disease, unspecified; G40.909 Epilepsy, unspecified, not intractable, without status epilepticus; I25.10 Atherosclerotic heart disease of native coronary artery without angina pectoris; F17.210 Nicotine dependence, cigarettes, uncomplicated; Z91.14 Patient's other noncompliance with medication regimen; Z72.9 Problem related to lifestyle, unspecified
CPT/HCPCS: 36415; 71045; 80053; 83880; 84484; 85025; 93005; 99284

== ENCOUNTER 2019-05-29 17:52 | Emergency (ER) | payer MEDICARE ==
[~2019-05-29] VITALS: Ht 182.9 cm; Wt 91.0 kg
--- NOTE | 2019-05-29 19:05 | NUR ---
Pt BIBA from home. c/o SOB x3 days, cough x3 days. reports green phlegm. seen here 2 days ago for same. sts when he coughs his legs go numb, he sometimes is incontinent of pee, and his feet hurt. bilat feet hurt x"years" but worse now. lungs ctab. nsr. c/o chest pain worse when coughing. A&Ox4 GCS 15. vss. awaiting md mitchell.
--- NOTE | 2019-05-29 20:07 | NUR ---
xr shows LEFT UPPER LOBE BRONCHITIS. IMPROVED LEFT LOWER LOBE ATELECTASIS OR PNEUMONIA.
[2019-05-29] MEDS ORDERED: IBUPROFEN 600 MG TABLET PO ONE (20:30)
[2019-05-29] MEDS ORDERED: IBUPROFEN 600 MG TABLET ONE ×2 (20:36→20:39)
--- NOTE | 2019-05-29 20:41 | NUR ---
PT MEDICATED FOR PAIN PER MAR.
[2019-05-29 20:46] LABS: MICROSCOPIC INDICATED
[2019-05-29 20:53] LABS: CULTURE INDICATED? YES
--- NOTE | 2019-05-29 21:05 | NUR ---
ALL RESULTS BACK, CHART UP FOR RECHECK
[2019-05-29] MEDS ORDERED: METHOCARBAMOL 500 MG TABLET ONE (21:25)
[2019-05-29] MEDS ORDERED: METHOCARBAMOL 500 MG TABLET PO ONE (21:30)
--- NOTE | 2019-05-29 22:02 | NUR ---
robaxin for pain. awaiting dispo. call marie in reach. NAD.
[2019-05-29 22:37] VITALS: BP 105/68
[2019-05-30] MEDS ORDERED: DIVA500T4 PO (12:26)
[2019-05-30] MEDS ORDERED: ACET-1600 PO (12:26)
[2019-05-30] MEDS ORDERED: HYDR50TA13 PO (12:26)
[2019-05-30] MEDS ORDERED: TRAM50TA2 PO (12:26)
[2019-05-30] MEDS ORDERED: CYCL5TAB PO (12:26)
[2019-05-30] MEDS ORDERED: PREG150C PO (12:26)
[2019-05-30] MEDS ORDERED: CHOL20002 PO (12:26)
[2019-05-30] MEDS ORDERED: MIRT-34 PO (12:26)
[2019-05-30] MEDS ORDERED: QUET25TA7 PO (12:26)
[2019-05-30] MEDS ORDERED: ATOR40TA PO (12:26)
[2019-05-30] MEDS ORDERED: POTA20TA14 PO (12:26)
== END 2019-05-29 22:40 | disposition home or self-care (01) ==
LOC: ED 18:30
DX: J06.9 Acute upper respiratory infection, unspecified (principal); R07.2 Precordial pain; M54.5 Low back pain; G89.29 Other chronic pain; I11.0 Hypertensive heart disease with heart failure; I50.9 Heart failure, unspecified; E11.21 Type 2 diabetes mellitus with diabetic nephropathy; F17.200 Nicotine dependence, unspecified, uncomplicated; I25.10 Atherosclerotic heart disease of native coronary artery without angina pectoris; J44.9 Chronic obstructive pulmonary disease, unspecified; Z86.73 Personal history of transient ischemic attack (TIA), and cerebral infarction without residual deficits; Z90.49 Acquired absence of other specified parts of digestive tract
CPT/HCPCS: 71045; 76770; 81001; 87086; 93005; 99284

== ENCOUNTER 2019-06-06 06:28 | Emergency (ER) | payer MEDICARE ==
[~2019-06-06] VITALS: Ht 182.9 cm; Wt 102.0 kg
[~2019-06-06 06:28] MED LIST changes: +ACET-1600 PO; +ALBU90AE INH; +ATOR40TA PO; +CHOL20002 PO; +CYCL5TAB PO; +GUAI200T37 PO; +MIRT-34 PO; +POTA20TA14 PO; +TIOT18CA INH
--- NOTE | 2019-06-06 06:40 | NUR ---
PT. WAS RECENTLY D/C FOR DX OF PNA. PT. REPORTS THAT AT 5 AM HE BECAME VERY SOB AND HAD PINPOINT CENTRAL CP. DENIES RADIATION OF PAIN. IV EN ROUTE AND 1 SL NITRO WITH NO CHANGE IN PAIN. EKG DONE ON ARRIVAL. ALEIDA SOLANO IN TO THONY PT AND DISCUSS POC. ALL MONITORS PLACED. CALL LIGHT IN REACH. ALL SAFETY MEASURES OBSERVED.
[2019-06-06] MEDS ORDERED: ONDANSETRON 2MG/ML, 2ML IVPush ONE (07:00)
[2019-06-06] MEDS ORDERED: ASPIRIN 81 MG TABLET CHEW PO ONE (07:00)
[2019-06-06] MEDS ORDERED: SODIUM CHLORIDE FLUSH 10ML SYR IVF ONE (07:00)
[2019-06-06] MEDS ORDERED: MORPHINE SULFATE 4 MG/ML, 1ML IVPush PRN (07:00)
--- NOTE | 2019-06-06 07:10 | NUR ---
BS REPORT TO DAISY HAWLEY. POC DISCUSSED.
[2019-06-06] MEDS ORDERED: MORPHINE SULFATE 4 MG/ML, 1ML ONE (07:11)
[2019-06-06] MEDS ORDERED: ONDANSETRON 2MG/ML, 2ML ONE (07:11)
--- NOTE | 2019-06-06 07:15 | NUR ---
ASSUMED CARE OF PT, ASA DOSE CLARIFIED WITH PROVIDER, PT IS ON ELIQUIS WILL HOLD ASA PER ORDER. PT MEDICATED PER MAR FOR PAIN. VSS AT THIS TIME
[2019-06-06 08:07] LABS: BASOPHILS # (AUTO) 0.04 x10^3/uL (0-0.1); BASOPHILS % (AUTO) 1 % (0-1); EOSINOPHILS # (AUTO) 0.15 x10^3/uL (0-0.4); EOSINOPHILS % (AUTO) 2 % (1-7); LYMPHOCYTES % (AUTO) 32 % (22-44); MD NO; MEAN CORPUSCULAR HEMOGLOBIN 30.7 pg (27.5-34.5); MEAN CORPUSCULAR HGB CONC 32.9 g/dL (33.2-36.2); MEAN CORPUSCULAR VOLUME 93.3 fL (81-97); MEAN PLATELET VOLUME 7.7 fL (7.4-10.4); MONOCYTES # (AUTO) 0.65 x10^3/uL (0.2-0.8); MONOCYTES % (AUTO) 8 % (2-9); NEUTROPHILS # (AUTO) 5.01 x10^3/uL (1.8-6.8); NEUTROPHILS % (AUTO) 59 % (42-75); PLATELET COUNT 199 x10^3/uL (130-400); RED BLOOD COUNT 4.48 x10^6/uL (4.38-5.82); RED CELL DISTRIBUTION WIDTH 14.3 % (9.4-14.8)
[2019-06-06 08:13] LABS: ALBUMIN 2.8 g/dL (3.4-5.0); ANION GAP 7 mmol/L (5-15); CALCIUM 8.4 mg/dL (8.5-10.1); CHLORIDE 105 mmol/L (98-107)
[2019-06-06 08:19] LABS: ALANINE AMINOTRANSFERASE 37 U/L (12-78); ALKALINE PHOSPHATASE 90 U/L (45-117); BILIRUBIN,TOTAL 0.2 mg/dL (0.2-1.0); CREATININE 0.86 mg/dL (0.7-1.3); TOTAL PROTEIN 6.3 g/dL (6.4-8.2); TROPONIN I < 0.015 ng/mL (0.000-0.045)
--- NOTE | 2019-06-06 08:19 | NUR ---
PT REPORTS MUCH RELIEF FROM PAIN MED ADMINISTRATION, GIVEN WARM BLANKET, NAD NOTED.
[2019-06-06 09:14] VITALS: BP 112/58
--- NOTE | 2019-06-06 09:15 | NUR ---
PT RESTING ON GURNEY, VSS, NAD NOTED, PT PLACED FOR RECHECK
== END 2019-06-06 10:08 | disposition home or self-care (01) ==
LOC: ED 08:56
DX: R07.89 Other chest pain (principal); I11.0 Hypertensive heart disease with heart failure; E11.9 Type 2 diabetes mellitus without complications; E87.0 Hyperosmolality and hypernatremia; I25.10 Atherosclerotic heart disease of native coronary artery without angina pectoris; I50.9 Heart failure, unspecified; J44.9 Chronic obstructive pulmonary disease, unspecified; Z86.718 Personal history of other venous thrombosis and embolism; Z86.73 Personal history of transient ischemic attack (TIA), and cerebral infarction without residual deficits
CPT/HCPCS: 36415; 71045; 80053; 83690; 83880; 84484; 85025; 93005; 96374; 96375; 99284; J2270; J2405

== ENCOUNTER 2019-06-17 22:44 | Emergency (ER) | payer MEDICARE ==
[~2019-06-17] VITALS: Ht 182.9 cm; Wt 90.0 kg
[2019-06-17] MEDS ORDERED: HYDROcodone/APAP 5/325 TABLET PO ONE (23:00)
[2019-06-17] MEDS ORDERED: ALBUTEROL SULFATE 2.5 MG/3 ML NPPB ONE (23:00)
[2019-06-17] MEDS ORDERED: ALBUTEROL SULFATE 2.5 MG/3 ML ONE (23:07)
[2019-06-17] MEDS ORDERED: HYDROcodone/APAP 5/325 TABLET ONE (23:09)
--- NOTE | 2019-06-18 00:42 | NUR ---
Break RN: Patient resting comfortably in [facility]. Patient to be discharged.
[2019-06-18 00:43] VITALS: BP 98/65
[2019-06-18 01:04] LABS: BASOPHILS # (AUTO) 0.04 x10^3/uL (0-0.1); BASOPHILS % (AUTO) 1 % (0-1); EOSINOPHILS # (AUTO) 0.14 x10^3/uL (0-0.4); EOSINOPHILS % (AUTO) 2 % (1-7); LYMPHOCYTES # (AUTO) 1.79 x10^3/uL (1-3.4); LYMPHOCYTES % (AUTO) 26 % (22-44); MD NO; MEAN CORPUSCULAR HEMOGLOBIN 29.9 pg (27.5-34.5); MEAN CORPUSCULAR HGB CONC 32.9 g/dL (33.2-36.2); MEAN CORPUSCULAR VOLUME 90.7 fL (81-97); MEAN PLATELET VOLUME 7.5 fL (7.4-10.4); MONOCYTES # (AUTO) 0.79 x10^3/uL (0.2-0.8); MONOCYTES % (AUTO) 11 % (2-9); NEUTROPHILS # (AUTO) 4.17 x10^3/uL (1.8-6.8); NEUTROPHILS % (AUTO) 60 % (42-75); PLATELET COUNT 241 x10^3/uL (130-400); RED BLOOD COUNT 4.55 x10^6/uL (4.38-5.82); RED CELL DISTRIBUTION WIDTH 15.6 % (9.4-14.8)
[2019-06-18 01:16] LABS: ALBUMIN 2.9 g/dL (3.4-5.0); ANION GAP 7 mmol/L (5-15); CALCIUM 8.1 mg/dL (8.5-10.1); CHLORIDE 111 mmol/L (98-107)
--- NOTE | 2019-06-18 01:16 | NUR ---
pt now making claims of si with a plan to shoot himself with a gun that he has in his jeep. pt states that he has had this respiratory infection and has felt so bad for the past couple of days that he doesnt want to live any more. er md shah notified and telepsych ordered. pt belongings in one bag and placed in locker. when pt first came in he said that he is [facility] and he recently sold a house that he owned and was going to make a repair to his jeep and had plans of returning home to [place] in his jeep.
[2019-06-18 01:17] LABS: SALICYLATE LEVEL < 1.7 mg/dL (2.8-20.0)
[2019-06-18 01:19] LABS: ALANINE AMINOTRANSFERASE 26 U/L (12-78); ALKALINE PHOSPHATASE 87 U/L (45-117); BILIRUBIN,TOTAL 0.2 mg/dL (0.2-1.0); CREATININE 1.11 mg/dL (0.7-1.3); TOTAL PROTEIN 6.3 g/dL (6.4-8.2)
--- NOTE | 2019-06-18 01:40 | NUR ---
pt resting on [facility]. room secured with guard gaits down and sitter at doorway for frequent checks.
[2019-06-18 01:57] LABS: AMPHETAMINE SCREEN, URINE Negative (Negative); BARBITURATE SCREEN, URINE Negative (Negative); BENZODIAZEPINE SCREEN, URINE Negative (Negative); CANNABINOID SCREEN, URINE Negative (Negative); COCAINE SCREEN, URINE Negative (Negative); METHADONE SCREEN, URINE Negative (Negative); OPIATE SCREEN, URINE Positive (Negative)
--- NOTE | 2019-06-18 02:02 | NUR ---
RE[place] GIV[place] BOYER, [facility] [place]
--- NOTE | 2019-06-18 02:09 | NUR ---
pt being evaluated via telepsych at this time.
--- NOTE | 2019-06-18 02:24 | NUR ---
SOC DETERMINED PT SHOULD BE PLACED ON A HOLD AND ADMITTED FOR PSYCH TREATMENT AND MEDICATION ADJUSTMENTS
--- NOTE | 2019-06-18 02:35 | NUR ---
TP RN: SONIA SUP AWARE THAT PT. TO BE PLACED ON LEAGAL 2K.
--- NOTE | 2019-06-18 03:33 | NUR ---
PT ACCEPTED TO [facility]
--- NOTE | 2019-06-18 03:41 | NUR ---
REPORT TO DAISY RAPP
[2019-06-18] MEDS ORDERED: GABA600T7 PO (05:37)
[2019-06-18] MEDS ORDERED: ALBU90AE INH (05:52)
[2019-06-18] MEDS ORDERED: TIOT18CA INH (05:53)
== END 2019-06-18 03:43 ==
LOC: ED 23:04
DX: J44.1 Chronic obstructive pulmonary disease with (acute) exacerbation (principal); F32.1 Major depressive disorder, single episode, moderate; R45.851 Suicidal ideations; I11.0 Hypertensive heart disease with heart failure; I50.9 Heart failure, unspecified; E11.9 Type 2 diabetes mellitus without complications; G40.909 Epilepsy, unspecified, not intractable, without status epilepticus; I25.10 Atherosclerotic heart disease of native coronary artery without angina pectoris; Z86.718 Personal history of other venous thrombosis and embolism; G89.29 Other chronic pain; Z90.49 Acquired absence of other specified parts of digestive tract; Z90.89 Acquired absence of other organs; Z87.891 Personal history of nicotine dependence
CPT/HCPCS: 36415; 71046; 80053; 80307; 85025; 94640; 99285; J7512; J7613

== ENCOUNTER 2019-09-06 16:59 | Emergency (ER) | payer MEDICARE ==
[~2019-09-06] VITALS: Ht 185.4 cm; Wt 111.4 kg
[~2019-09-06 16:59] MED LIST changes: +GABA600T7 PO; -HYDR50TA13 PO; +HYDR50TA99 PO; -TRAZ-137 PO; +TRAZ-175 PO
[2019-09-06 17:40] LABS: TROPONIN I < 0.015 ng/mL (0.000-0.045)
--- NOTE | 2019-09-06 18:00 | NUR ---
PT RESTING ON GURNEY WITH EYES CLOSED. RESPIRATIONS EVEN AND NONLABORED. CALL LIGHT WTIHIN REACH. MONITORING IN PLACE.
[2019-09-06 18:42] VITALS: BP 108/75
== END 2019-09-06 19:38 | disposition home or self-care (01) ==
LOC: ED 19:30
DX: R07.89 Other chest pain (principal); J44.9 Chronic obstructive pulmonary disease, unspecified; E11.9 Type 2 diabetes mellitus without complications; I25.2 Old myocardial infarction; I10 Essential (primary) hypertension; I25.10 Atherosclerotic heart disease of native coronary artery without angina pectoris; G40.909 Epilepsy, unspecified, not intractable, without status epilepticus; G89.29 Other chronic pain; Z86.718 Personal history of other venous thrombosis and embolism; Z90.49 Acquired absence of other specified parts of digestive tract; Z90.89 Acquired absence of other organs; Z86.73 Personal history of transient ischemic attack (TIA), and cerebral infarction without residual deficits
CPT/HCPCS: 36415; 71045; 84484; 93005; 99285